=== PATIENT | male | born 1980 ===

== ENCOUNTER 2018-04-13 18:24 | Observation (INO) | payer MEDICARE ==
--- NOTE | 2018-04-13 19:10 | ED PDOC ---
HPI: Chest Pain Time Seen by Provider: 04/13/18 18:51 Chief Complaint (Nursing): Chest Pain Chief Complaint (Provider): Chest Pain History Per: Patient History/Exam Limitations: no limitations Onset/Duration Of Symptoms: Intermittent Episodes (x2 weeks) Current Symptoms Are (Timing): Intermittent Episodes Additional Complaint(s): 37 year old male presents to the ED for evaluation of intermittent sharp left sided, non-radiating left sided chest pain worse on inspiration for the past two weeks. He reports it occurred again today, prompting his visit. Denies cough, sh ortness of breath. He additionally reports hearing voices, non-commanding, but otherwise denies si/hi. PMD: Keo Richard Past Medical History Reviewed: Historical Data, Nursing Documentation, Vital Signs Vital Signs: Last Vital Signs Temp 98.1 F 04/13/18 18:34 Pulse 97 H 04/13/18 18:34 Resp 18 04/13/18 18:34 BP 159/77 H 04/13/18 18:34 Pulse Ox 99 04/13/18 18:34 - Medical History PMH: Schizophrenia Other PMH: thrombocytopenia; intestinal obstruction - Surgical History Surgical History: CABG Other surgeries: pulmonary valve replacement at - Family History Family History: States: Unknown Family Hx - Allergies Allergies/Adverse Reactions: Allergies Allergy/AdvReac Type Severity Reaction Status Date / Time Sulfa (Sulfonamide Allergy RASH Verified 04/13/18 18:33 Antibiotics) Review of Systems ROS Statement: Except As Marked, All Systems Reviewed And Found Negative Cardiovascular: Positive for: Chest Pain (sharp left sided, non-radiating, worse on inspiration) Respiratory: Negative for: Cough, Shortness of Breath Psych: Positive for: Other (auditory hallucinations). Negative for: Suicidal ideation (or homicidal ideation) Physical Exam - Reviewed Nursing Documentation Reviewed: Yes Vital Signs Reviewed: Yes - Physical Exam Appears: Positive for: No Acute Distress Head Exam: Positive for: ATRAUMATIC, NORMOCEPHALIC Skin: Positive for: Normal Color, Warm Eye Exam: Positive for: Normal appearance Neck: Positive for: Normal, Painless ROM, Supple Cardiovascular/Chest: Positive for: Murmur (3/6 systolic murmur, regular rate) Respiratory: Positive for: Normal Breath Sounds. Negative for: Respiratory Distress Gastrointestinal/Abdominal: Positive for: Normal Exam, Soft. Negative for: Tenderness Back: Positive for: Normal Inspection Extremity: Positive for: Normal ROM. Negative for: Tenderness, Pedal Edema, Calf Tenderness, Swelling Neurologic/Psych: Positive for: Alert, Oriented (x3) - Laboratory Results Result Diagrams: 04/13/18 19:30 04/13/18 19:30 - ECG O2 Sat by Pulse Oximetry: 99 (RA) Pulse Ox Interpretation: Normal Medical Decision Making Medical Decision Making: Time: 1858 Initial Impression: chest pain, probably not acute ischemic, auditory hallucinations, non commanding, in setting of known schizoaffective disorder Initial Plan: --Alcohol serum --CMP --Urine drug screen --Trop I --U-dip --CBC with differential --Chest x-ray --EKG EKG shows rbbb, but there is no prior EKG for comparison. Will be unable to clear medically for psychiatric evaluation, so will pace in OBS for serial troponins and psychiatric consult will be in TELE. Scribe Attestation: Documented by Kath Arroyo, acting as a scribe for Max Cisneros MD. Provider Scribe Attestation: All medical record entries made by the Scribe were at my direction and personally dictated by me. I have reviewed the chart and agree that the record accurately reflects my personal performance of the history, physical exam, medical decision making, and the department course for this patient. I have also personally directed, reviewed, and agree with the discharge instructions and disposition. Disposition - Clinical Impression Clinical Impression: Chest pain, Schizoaffective disorder - Patient ED Disposition Is Patient to be Admitted: Yes - Disposition Disposition Time: 20:32 Condition: FAIR Forms: [facility] (Hungarian) - Pt Status Changed To: Hospital Disposition Of: Observation - POA Present On Arrival: None
[2018-04-13 19:36] LABS: BASO % 0.6 % (0.0-2.0); HEMOGLOBIN 14.7 g/dL (12.0-18.0); MEAN CELL VOLUME 85.7 fl (80.0-94.0); MEAN CORPUSCULAR HGB CONC 32.7 g/dL (33.0-37.0); MEAN PLATELET VOLUME 9.1 fl (7.2-11.7); MONO # 0.4 K/uL (0.0-0.8); MONO % 7.8 % (0.0-10.0); NEUT # 3.3 K/uL (1.8-7.0); NEUT % 70.6 % (50.0-75.0); NRBC % 0.1 % (0.0-0.0); RBC 5.25 Mil/uL (4.40-5.90); RED CELL DISTRIBUTION WIDTH 13.5 % (11.5-14.5); WHITE BLOOD COUNT 4.7 K/uL (4.8-10.8)
[2018-04-13 19:44] LABS: ALB/GLOB RATIO 1.6 (1.0-2.1); ALBUMIN 4.7 g/dL (3.5-5.0); ALT/SGPT 51 U/L (21-72); AST/SGOT 21 U/L (17-59); BLOOD UREA NITROGEN 16 mg/dl (9-20); CALCIUM 9.3 mg/dL (8.4-10.2); GFR NON-AFRICAN AMERICAN > 60
[2018-04-13 21:22] LABS: BARBITURATES, UR NEGATIVE (NEGATIVE); BENZODIAZEPINES, UR NEGATIVE (NEGATIVE); OPIATES, UR NEGATIVE (NEGATIVE); PHENCYCLIDINE, UR NEGATIVE (NEGATIVE)
[2018-04-14 04:25] LABS: HEMOGLOBIN 13.6 g/dL (12.0-18.0); MEAN CELL VOLUME 86.5 fl (80.0-94.0); MEAN CORPUSCULAR HEMOGLOBIN 28.3 pg (27.0-31.0); MEAN CORPUSCULAR HGB CONC 32.7 g/dL (33.0-37.0); RBC 4.79 Mil/uL (4.40-5.90); RED CELL DISTRIBUTION WIDTH 13.5 % (11.5-14.5); WHITE BLOOD COUNT 4.5 K/uL (4.8-10.8)
[2018-04-14 04:42] LABS: ALB/GLOB RATIO 1.6 (1.0-2.1); ALT/SGPT 44 U/L (21-72); AST/SGOT 17 U/L (17-59); BLOOD UREA NITROGEN 14 mg/dl (9-20); CALCIUM 9.2 mg/dL (8.4-10.2); GFR NON-AFRICAN AMERICAN > 60
[2018-04-14 07:55] VITALS: RESP 20
[2018-04-14] MEDS ORDERED: BUPROPION HCL 450 MG PO SCH (09:00)
[2018-04-14] MEDS ORDERED: MOMETASONE FUROATE 0.05 MG NS SCH (09:00)
[2018-04-14] MEDS ORDERED: Pantoprazole 40 mg EC Tab PO SCH (09:00)
[2018-04-14] MEDS ORDERED: Patient's Own Med (Omeprazole [Omeprazole] 40 MG) PO SCH (09:00)
--- NOTE | 2018-04-14 09:09 | CP.PCM.CON ---
History of Present Illness - History of Present Illness History of Present Illness: Psychiatry consult note CC: Chest pain/ worsening psychosis HPI: 37 yo male w/ h/o schizoaffective disorder presents w/ chest pain, wo rsening depression/anxiety and auditory hallucinations. Patient reports that he feels helpless at times and feels that he needs inpatient psychiatric treatment for stabilization. He reports that he has been compliant with medications, but has had more frequent auditory hallucinations. No CAH/SI/HI. PMHx: Thrombocytopenia; intestinal obstruction; pulmonary valve replacement at PPHx: H/o outpatient psychiatric treatment w/ Dr. 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 -Transfer to [facility] when patient is medically stable -Wellbutrin SR 150 mg PO Daily; Trileptal 600 mg PO BID -Risperdal 4 mg PO Q12; Cogentin 1 mg PO Q12 -No 1:1 indicated at this time Past Patient History - Past Medical History & Family History Past Medical History?: Yes - Past Social History Smoking Status: Former Smoker - CARDIAC Hx Cardiac Disorders: Yes Hx Cardia Arrhythmia: Yes - PULMONARY Hx Respiratory Disorders: No - NEUROLOGICAL Hx Neurological Disorder: No - HEENT Hx HEENT Problems: No - RENAL Hx Chronic Kidney Disease: No - ENDOCRINE/METABOLIC Hx Endocrine Disorders: No - HEMATOLOGICAL/ONCOLOGICAL Hx Blood Disorders: No - INTEGUMENTARY Hx Dermatological Problems: No - MUSCULOSKELETAL/RHEUMATOLOGICAL Hx Musculoskeletal Disorders: No Hx Falls: No - GASTROINTESTINAL Hx Gastrointestinal Disorders: Yes Hx Gastroesophageal Reflux: Yes - GENITOURINARY/GYNECOLOGICAL Hx Genitourinary Disorders: No - PSYCHIATRIC Hx Psychophysiologic Disorder: Yes Hx Bipolar Disorder: Yes Hx Depression: Yes Hx Schizophrenia: Yes (Schizoaffective) Hx Substance Use: No - SURGICAL HISTORY Hx Surgeries: Yes Hx Coronary Artery Bypass Graft: Yes Hx Herniorrhaphy: Yes Other/Comment: As per patient: Pulmonary Valve Replacement at ; colostomy reversal; - ANESTHESIA Hx Anesthesia: Yes Hx Anesthesia Reactions: No Meds Allergies/Adverse Reactions: Allergies Allergy/AdvReac Type Severity Reaction Status Date / Time Sulfa (Sulfonamide Allergy RASH Verified 04/13/18 18:33 Antibiotics) - Medications Medications: Current Medications Amlodipine Besylate (Norvasc) 2.5 mg PO BID [facility] Fluticasone Propionate (Flonase) 2 spr YANET DAILY [facility] Home Med (Bupropion Hcl [Bupropion Xl]) 450 mg PO DAILY ARYAN Oxcarbazepine (Trileptal) 150 mg PO QID [facility]YAN Pantoprazole Sodium (Protonix Ec Tab) 40 mg PO DAILY ARYAN Risperidone (Risperdal Tab) 3 mg PO TID ARYAN Results - Vital Signs Recent Vital Signs: Last Vital Signs Temp 98.5 F 04/14/18 07:55 Pulse 70 04/14/18 07:55 Resp 20 04/14/18 07:55 BP 105/64 04/14/18 07:55 Pulse Ox 98 04/14/18 07:55 - Labs Result Diagrams: 04/14/18 04:10 04/14/18 04:10 Labs: Laboratory Results - last 24 hr 04/13/18 04/13/18 04/13/18 19:30 19:30 21:02 WBC 4.7 L RBC 5.25 Hgb 14.7 Hct 45.0 MCV 85.7 MCH 28.0 MCHC 32.7 L RDW 13.5 Plt Count 132 MPV 9.1 Neut % (Auto) 70.6 Lymph % (Auto) 20.0 Gregg % (Auto) 7.8 Eos % (Auto) 1.0 Baso % (Auto) 0.6 Neut # (Auto) 3.3 Lymph # (Auto) 1.0 Gregg # (Auto) 0.4 Eos # (Auto) 0.0 Baso # (Auto) 0.0 Sodium 136 Potassium 4.6 Chloride 95 L Carbon Dioxide 28 Anion Gap 18 BUN 16 Creatinine 0.9 Est GFR ( Amer) > 60 Est GFR (Non-Af Amer) > 60 Random Glucose 104 Calcium 9.3 Total Bilirubin 0.3 AST 21 ALT 51 Alkaline Phosphatase 58 Troponin I < 0.0120 Total Protein 7.6 Albumin 4.7 Globulin 2.9 Albumin/Globulin Ratio 1.6 TSH 3rd Generation Urine Opiates Screen Negative Urine Methadone Screen Negative Ur Barbiturates Screen Negative Ur Phencyclidine Scrn Negative Ur Amphetamines Screen Negative U Benzodiazepines Scrn Negative U Oth Cocaine Metabols Negative U Cannabinoids Screen Negative Alcohol, Quantitative < 10 04/14/18 04/14/18 04:10 04:10 WBC 4.5 L RBC 4.79 Hgb 13.6 Hct 41.4 MCV 86.5 MCH 28.3 MCHC 32.7 L RDW 13.5 Plt Count 136 MPV Neut % (Auto) Lymph % (Auto) Gregg % (Auto) Eos % (Auto) Baso % (Auto) Neut # (Auto) Lymph # (Auto) Gregg # (Auto) Eos # (Auto) Baso # (Auto) Sodium 136 Potassium 3.9 Chloride 98 Carbon Dioxide 29 Anion Gap 13 BUN 14 Creatinine 0.9 Est GFR ( Amer) > 60 Est GFR (Non-Af Amer) > 60 Random Glucose 97 Calcium 9.2 Total Bilirubin 0.5 AST 17 ALT 44 Alkaline Phosphatase 37 L D Troponin I < 0.0120 Total Protein 6.6 Albumin 4.0 Globulin 2.6 Albumin/Globulin Ratio 1.6 TSH 3rd Generation 2.60 Urine Opiates Screen Urine Methadone Screen Ur Barbiturates Screen Ur Phencyclidine Scrn Ur Amphetamines Screen U Benzodiazepines Scrn U Oth Cocaine Metabols U Cannabinoids Screen Alcohol, Quantitative
[2018-04-14] MEDS ORDERED: buPROPion SR 150 MG TABLET PO SCH (09:45)
--- NOTE | 2018-04-14 14:58 | RAD ---
Date of service: 04/13/2018 HISTORY: Chest pain COMPARISON: No prior. TECHNIQUE: Chest PA and lateral FINDINGS: LUNGS: No active pulmonary disease. PLEURA: No significant pleural effusion identified. No pneumothorax apparent. CARDIOVASCULAR: No aortic atherosclerotic calcification present. Cardiac size borderline enlarged. Prior median sternotomy identified with additional left heart border/perihilar radiodensity which may also be postoperative or calcific. No pulmonary vascular congestion. OSSEOUS STRUCTURES: No significant abnormalities. VISUALIZED UPPER ABDOMEN: Normal. OTHER FINDINGS: None. IMPRESSION: Borderline cardiomegaly. No pulmonary vascular congestion. No acute infiltrate bilaterally or pleural effusion. Prior median sternotomy evident.
[2018-04-14 16:04] VITALS: O2SAT 98
--- NOTE | 2018-04-14 18:43 | CARD ---
APPROVED REPORT Date of service: 04/14/2018 EKG Measurement Heart [id number] <Conclusion> Normal sinus rhythm Possible Left atrial enlargement Right bundle branch block Possible Inferior infarct, age undetermined Abnormal ECG
[2018-04-14 19:09] VITALS: BP 102/67; TEMP 99.2
--- NOTE | 2018-04-14 19:17 | CP.PCM.HP ---
History of Present Illness - History of Present Illness History of Present Illness: CC: Chest Pain History of Present Illness: A 37 year old male presents to the ED for evaluation of intermittent sharp, non- radiating left sided chest pain worse on inspiration for the past two weeks. He reports it occurred again today, prompting his visit. Denies cough, shortness of breath. He additionally reports hearing voices, non-commanding, but otherwise denies si/hi. Present on Admission - Present on Admission Any Indicators Present on Admission: No Review of Systems - Review of Systems All systems: reviewed and no additional remarkable complaints except Past Patient History - Past Medical History & Family History Past Medical History?: Yes Past Family History: Reviewed and not pertinent - Past Social History Smoking Status: Former Smoker - CARDIAC Hx Cardiac Disorders: Yes Hx Cardia Arrhythmia: Yes - PULMONARY Hx Respiratory Disorders: No - NEUROLOGICAL Hx Neurological Disorder: No - HEENT Hx HEENT Problems: No - RENAL Hx Chronic Kidney Disease: No - ENDOCRINE/METABOLIC Hx Endocrine Disorders: No - HEMATOLOGICAL/ONCOLOGICAL Hx Blood Disorders: No - INTEGUMENTARY Hx Dermatological Problems: No - MUSCULOSKELETAL/RHEUMATOLOGICAL Hx Musculoskeletal Disorders: No Hx Falls: No - GASTROINTESTINAL Hx Gastrointestinal Disorders: Yes Hx Gastroesophageal Reflux: Yes - GENITOURINARY/GYNECOLOGICAL Hx Genitourinary Disorders: No - PSYCHIATRIC Hx Psychophysiologic Disorder: Yes Hx Bipolar Disorder: Yes Hx Depression: Yes Hx Schizophrenia: Yes (Schizoaffective) Hx Substance Use: No - SURGICAL HISTORY Hx Surgeries: Yes Hx Coronary Artery Bypass Graft: Yes Hx Herniorrhaphy: Yes Other/Comment: As per patient: Pulmonary Valve Replacement at ; colostomy reversal; - ANESTHESIA Hx Anesthesia: Yes Hx Anesthesia Reactions: No Meds Allergies/Adverse Reactions: Allergies Allergy/AdvReac Type Severity Reaction Status Date / Time Sulfa (Sulfonamide Allergy RASH Verified 04/13/18 18:33 Antibiotics) Physical Exam - Constitutional Appears: Well, No Acute Distress - Head Exam Head Exam: ATRAUMATIC, NORMAL INSPECTION, NORMOCEPHALIC - Eye Exam Eye Exam: EOMI, Normal appearance, PERRL Pupil Exam: NORMAL ACCOMODATION, PERRL - ENT Exam ENT Exam: Mucous Membranes Moist, Normal Exam - Neck Exam Neck exam: Positive for: Normal Inspection - Respiratory Exam Respiratory Exam: Clear to Auscultation Bilateral, NORMAL BREATHING PATTERN - Cardiovascular Exam Cardiovascular Exam: REGULAR RHYTHM, +S1, +S2 - GI/Abdominal Exam GI & Abdominal Exam: Normal Bowel Sounds, Soft. absent: Tenderness - Extremities Exam Extremities exam: Positive for: normal inspection - Back Exam Back exam: NORMAL INSPECTION - Neurological Exam Neurological exam: Alert, CN II-XII Intact, Normal Gait, Oriented x3, Reflexes Normal - Psychiatric Exam Psychiatric exam: Normal Affect, Normal Mood - Skin Skin Exam: Dry, Intact, Normal Color, Warm Results - Vital Signs Recent Vital Signs: Last Vital Signs Temp 99.2 F 04/14/18 19:07 Pulse 123 H 04/14/18 19:07 Resp 20 04/14/18 19:07 BP 102/67 04/14/18 19:07 Pulse Ox 98 04/14/18 19:07 - Labs Result Diagrams: 04/14/18 04:10 04/14/18 04:10 Labs: Laboratory Results - last 24 hr 04/13/18 04/13/18 04/13/18 19:30 19:30 21:02 WBC 4.7 L RBC 5.25 Hgb 14.7 Hct 45.0 MCV 85.7 MCH 28.0 MCHC 32.7 L RDW 13.5 Plt Count 132 MPV 9.1 Neut % (Auto) 70.6 Lymph % (Auto) 20.0 Finney % (Auto) 7.8 Eos % (Auto) 1.0 Baso % (Auto) 0.6 Neut # (Auto) 3.3 Lymph # (Auto) 1.0 Finney # (Auto) 0.4 Eos # (Auto) 0.0 Baso # (Auto) 0.0 Sodium 136 Potassium 4.6 Chloride 95 L Carbon Dioxide 28 Anion Gap 18 BUN 16 Creatinine 0.9 Est GFR ( Amer) > 60 Est GFR (Non-Af Amer) > 60 Random Glucose 104 Calcium 9.3 Total Bilirubin 0.3 AST 21 ALT 51 Alkaline Phosphatase 58 Troponin I < 0.0120 Total Protein 7.6 Albumin 4.7 Globulin 2.9 Albumin/Globulin Ratio 1.6 TSH 3rd Generation Urine Opiates Screen Negative Urine Methadone Screen Negative Ur Barbiturates Screen Negative Ur Phencyclidine Scrn Negative Ur Amphetamines Screen Negative U Benzodiazepines Scrn Negative U Oth Cocaine Metabols Negative U Cannabinoids Screen Negative Alcohol, Quantitative < 10 RPR 04/14/18 04/14/18 04/14/18 04:10 04:10 04:10 WBC 4.5 L RBC 4.79 Hgb 13.6 Hct 41.4 MCV 86.5 MCH 28.3 MCHC 32.7 L RDW 13.5 Plt Count 136 MPV Neut % (Auto) Lymph % (Auto) Finney % (Auto) Eos % (Auto) Baso % (Auto) Neut # (Auto) Lymph # (Auto) Finney # (Auto) Eos # (Auto) Baso # (Auto) Sodium 136 Potassium 3.9 Chloride 98 Carbon Dioxide 29 Anion Gap 13 BUN 14 Creatinine 0.9 Est GFR ( Amer) > 60 Est GFR (Non-Af Amer) > 60 Random Glucose 97 Calcium 9.2 Total Bilirubin 0.5 AST 17 ALT 44 Alkaline Phosphatase 37 L D Troponin I < 0.0120 Total Protein 6.6 Albumin 4.0 Globulin 2.6 Albumin/Globulin Ratio 1.6 TSH 3rd Generation 2.60 Urine Opiates Screen Urine Methadone Screen Ur Barbiturates Screen Ur Phencyclidine Scrn Ur Amphetamines Screen U Benzodiazepines Scrn U Oth Cocaine Metabols U Cannabinoids Screen Alcohol, Quantitative RPR Nonreactive 04/14/18 11:29 WBC RBC Hgb Hct MCV MCH MCHC RDW Plt Count MPV Neut % (Auto) Lymph % (Auto) Finney % (Auto) Eos % (Auto) Baso % (Auto) Neut # (Auto) Lymph # (Auto) Finney # (Auto) Eos # (Auto) Baso # (Auto) Sodium Potassium Chloride Carbon Dioxide Anion Gap BUN Creatinine Est GFR ( Amer) Est GFR (Non-Af Amer) Random Glucose Calcium Total Bilirubin AST ALT Alkaline Phosphatase Troponin I < 0.0120 Total Protein Albumin Globulin Albumin/Globulin Ratio TSH 3rd Generation Urine Opiates Screen Urine Methadone Screen Ur Barbiturates Screen Ur Phencyclidine Scrn Ur Amphetamines Screen U Benzodiazepines Scrn U Oth Cocaine Metabols U Cannabinoids Screen Alcohol, Quantitative RPR - Imaging and Cardiology Chest x-ray Status: Report reviewed by me Additional comment: No acute finding. +sutures in the past. Assessment & Plan (1) Atypical chest pain Status: Resolved (2) Schizoaffective disorder Status: Acute - Assessment and Plan (Free Text) Plan: Serial Tzroponin andEKG Monitor 24hrs for chest pain
[2018-04-14 22:31] VITALS: PULSE 79
--- NOTE | 2018-04-15 07:28 | CP.PCM.DIS ---
Provider - Provider Date of Admission: 04/13/18 20:30 Attending physician: Nicholas Ariza MD Consults: 04/13/18 20:33 Physician Consult Stat Comment: Consulting Provider: Karen Patino Consulting Physician: Karen Patino Reason for Consult: Schizoaffective disorder Time Spent in preparation of Discharge (in minutes): 20 Diagnosis - Discharge Diagnosis (1) Chest pain Status: Acute (2) Schizoaffective disorder Status: Acute Hospital Course - Lab Results Lab Results: Most Recent Lab Values WBC 4.5 K/uL (4.8-10.8) L 04/14/18 04:10 RBC 4.79 Mil/uL (4.40-5.90) 04/14/18 04:10 Hgb 13.6 g/dL (12.0-18.0) 04/14/18 04:10 Hct 41.4 % (35.0-51.0) 04/14/18 04:10 MCV 86.5 fl (80.0-94.0) 04/14/18 04:10 MCH 28.3 pg (27.0-31.0) 04/14/18 04:10 MCHC 32.7 g/dL (33.0-37.0) L 04/14/18 04:10 RDW 13.5 % (11.5-14.5) 04/14/18 04:10 Plt Count 136 K/uL (130-400) 04/14/18 04:10 MPV 9.1 fl (7.2-11.7) 04/13/18 19:30 Neut % (Auto) 70.6 % (50.0-75.0) 04/13/18 19:30 Lymph % (Auto) 20.0 % (20.0-40.0) 04/13/18 19:30 Wayne % (Auto) 7.8 % (0.0-10.0) 04/13/18 19:30 Eos % (Auto) 1.0 % (0.0-4.0) 04/13/18 19:30 Baso % (Auto) 0.6 % (0.0-2.0) 04/13/18 19:30 Neut # (Auto) 3.3 K/uL (1.8-7.0) 04/13/18 19:30 Lymph # (Auto) 1.0 K/uL (1.0-4.3) 04/13/18 19:30 Wayne # (Auto) 0.4 K/uL (0.0-0.8) 04/13/18 19:30 Eos # (Auto) 0.0 K/uL (0.0-0.7) 04/13/18 19:30 Baso # (Auto) 0.0 K/uL (0.0-0.2) 04/13/18 19:30 Sodium 136 mmol/l (132-148) 04/14/18 04:10 Potassium 3.9 MMOL/L (3.6-5.0) 04/14/18 04:10 Chloride 98 mmol/L (98-107) 04/14/18 04:10 Carbon Dioxide 29 mmol/L (22-30) 04/14/18 04:10 Anion Gap 13 (10-20) 04/14/18 04:10 BUN 14 mg/dl (9-20) 04/14/18 04:10 Creatinine 0.9 mg/dl (0.8-1.5) 04/14/18 04:10 Est GFR ( Amer) > 60 04/14/18 04:10 Est GFR (Non-Af Amer) > 60 04/14/18 04:10 Random Glucose 97 mg/dL (75-110) 04/14/18 04:10 Calcium 9.2 mg/dL (8.4-10.2) 04/14/18 04:10 Total Bilirubin 0.5 mg/dl (0.2-1.3) 04/14/18 04:10 AST 17 U/L (17-59) 04/14/18 04:10 ALT 44 U/L (21-72) 04/14/18 04:10 Alkaline Phosphatase 37 U/L (38-126) L D 04/14/18 04:10 Troponin I < 0.0120 ng/mL (0.00-0.120) 04/14/18 11:29 Total Protein 6.6 G/DL (6.3-8.2) 04/14/18 04:10 Albumin 4.0 g/dL (3.5-5.0) 04/14/18 04:10 Globulin 2.6 gm/dL (2.2-3.9) 04/14/18 04:10 Albumin/Globulin Ratio 1.6 (1.0-2.1) 04/14/18 04:10 TSH 3rd Generation 2.60 mIU/ML (0.46-4.68) 04/14/18 04:10 Urine Opiates Screen Negative (NEGATIVE) 04/13/18 21:02 Urine Methadone Screen Negative (NEGATIVE) 04/13/18 21:02 Ur Barbiturates Screen Negative (NEGATIVE) 04/13/18 21:02 Ur Phencyclidine Scrn Negative (NEGATIVE) 04/13/18 21:02 Ur Amphetamines Screen Negative (NEGATIVE) 04/13/18 21:02 U Benzodiazepines Scrn Negative (NEGATIVE) 04/13/18 21:02 U Oth Cocaine Metabols Negative (NEGATIVE) 04/13/18 21:02 U Cannabinoids Screen Negative (NEGATIVE) 04/13/18 21:02 Alcohol, Quantitative < 10 mg/dl (0-10) 04/13/18 19:30 RPR Nonreactive (NONREACTIVE) 04/14/18 04:10 - Hospital Course Hospital Course: Observed in telemetry for chest pain. ACS Ruled out and Medically Cleared fo Psych admission. Patient has active Psychotic Behaviour. Discharge Exam - Head Exam Head Exam: ATRAUMATIC, NORMOCEPHALIC Discharge Plan - Follow Up Plan Condition: FAIR Disposition: DISCHARGE TO PSYCH HOSPITAL Instructions: Chest Pain
== END 2018-04-14 23:07 ==
LOC: H.ER 18:24 → H.ERHOLD 20:30 → H.TEL 23:20
PROVIDERS: ADMIT Internal Medicine; ATTEND Internal Medicine
DX: R07.89 Other chest pain (principal); F25.9 Schizoaffective disorder, unspecified; Z88.2 Allergy status to sulfonamides; Z95.1 Presence of aortocoronary bypass graft; I45.10 Unspecified right bundle-branch block; Z87.891 Personal history of nicotine dependence; K21.9 Gastro-esophageal reflux disease without esophagitis
CPT/HCPCS: 36415; 71046; 80053; 84443; 84484; 85025; 85027; 86592; 93005; 99285; G0378; G0480

== ENCOUNTER 2018-04-14 21:11 | Inpatient (IN) | payer MEDICARE ==
[2018-04-14 23:32] VITALS: BMI 20.5
[2018-04-14] MEDS ORDERED: DiphenhydrAMINE 50 mg/ml Inj IM PRN (23:32)
[2018-04-14] MEDS ORDERED: Magnesium Hydroxide Susp 30 ml UD PO PRN (23:32)
[2018-04-14] MEDS ORDERED: Alum-Mag Hydrox-Simethicone Susp (30 mL) PO PRN (23:32)
--- NOTE | 2018-04-15 00:03 | PCM.BM ---
<Freya Roth - Last Filed: 04/15/18 00:00> Treatment Plan Problems - Problems identified on initial assessmt Auditory Hallucinations Date Initiated: 04/15/18 Time Initiated: 00:01 Assessment reference: NA Status: Active Ineffective Coping Date Initiated: 04/15/18 Time Initiated: 00:02 Assessment reference: NA Status: Active Treatment assets and liabiliti Patient Assests: self-reliant, ADL independent, good support system Patient Liabilities: financial problems, substance abuse - Milieu Protocol Maintain good personal hygiene: every shift Encourage regular showers, every shift Remind patient to perform daily oral care, every shift Assist patient to perform ADL's Conduct patient checks and document Observation sheet: Q15 minutes Maintain personal safety: every shift Educate patient to report safety concerns to staff, every shift Monitor environment for contraband/sharps Medication safety: Monitor for expected outcome, potential side effects: every shift, Assess barriers to learning: every shift, Assess readiness for medication education: every shift <Trice Ramirez - Last Filed: 04/16/18 14:36> Treatment assets and liabiliti Patient Assests: adapts well, cooperative, insightful (Pt. responds well to reality-testing and is able to identify paranoia/ideas of reference as sxs of illness. ), motivated (Pt. expresses motivation for tx), resourceful, self- reliant, ADL independent, physically healthy, good support system, good past tx response (Pt. reports maintaining sobriety x10 years (07/18/07). Pt. denies inpt admissions since 2005.), strong sara (Pt. reports attended [place], volunteering with his [employer], maintaining sobriety through 12 step program) Patient Liabilities: dietary restrictions, medical problems ( Pt. denies extensive medical hx (pulmonary valve replacement/perforated anus- infant, i ntentional obstruction-young adulthood, colostomy). Please see H&P.) Family Contact Family involvement: Family/SO is involved Family contact: Patient agrees to contact, Family has been contacted by patient, Telephone contact initiated by staff Family contact name: Frida(mother)([phone]) Family contacted how many times per week?: 2 - Goals for Treatment Patient goals for treatment: Patient to continue stabilization on 3NP through medication management and group/supportive therapy to address sxs of depression and eliminate psychosis as exhibited by AH, paranoia, ideas of reference. Patient to be encouraged to attend groups regularly to promote self-awareness, sobriety, and improve insight, compliance, coping skills and self-esteem. Patient to be provided with referral for appropriate level of aftercare to reduce risk of future hospitalizations and ensure safety in the community. Pt. identified managing medications appropriately to "think better" and "feel happier". Discharge/Continuing Care - Education Needs Education Needs: Patient Medication, Patient Diagnosis/Disease Process, Patient Coping Skills, Patient Community resources, Patient Aftercare Safety Plan - Discharge Discharge Criteria: Tolerates medication w/o severe side effects, Free of Suicidal thoughts, Free of paranoid thoughts, Free of agitation, Normal sleep pattern, Ability to care for self, Reduction of target symptoms (ideas of reference, racing thoughts) Discharge to:: Home, With Family - Treatment Team Participation Patient/Family/SO Statement: 04/16/18 14:43 Pt. attended tx team on 04/15 to discuss precursors to hospitalization, progress on 3NP and tx goals. Pt. reported recent worsening of depression as exhibited by racing thoughts, paranoia, ideas of reference and derogatory AH. Pt. explained AH as worsening at night. Pt. expressed motivation for tx and exhibited fair i nsight into illness. Thoughts are tangential, disorganized and circumstantial. Thought process included ideas of reference of paranoia. Pt. responded well to reality-testing and is able to identify paranoia/ideas of reference as sxs of illness. Speech: pressured. Pt. denied current SI/HI and is able to contact for safety on 3NP. Pt. reported having been on the same regime for 10 years. Possible benefits of changing pts medications discussed. Pt. agreeable. Pt. reported wanting to improve sleep and "slow down" thoughts in order to improve focus and return to daily routine. Discussed with Family/SO: No Was Patient/Family/SO present at Treatment Team Meeting: Yes <Nicko Robledo - Last Filed: 04/17/18 13:23> - Diagnosis (1) Psychosis Status: Acute Interventions: pharmacotherapy 04/17/18 13:23
[2018-04-15 07:48] LABS: HDL CHOLESTEROL 64 MG/DL (30-70)
[2018-04-15 07:59] LABS: LDL CHOLESTEROL 70 mg/dL (0-129)
[2018-04-15] MEDS: buPROPion SR 150 MG TABLET PO SCH (09:14)
--- NOTE | 2018-04-15 12:51 | PCM.PSYCH ---
Initial Psychiatric Evaluation - Initial Psychiatric Evaluation Type of Admission: Voluntary Legal Status: Capacity Chief Complaint (in patient's own words): I am very frustrated and overwhelmed by the voices History of Present Illness and Precipitating Events: pt is a 37ys old male with previous psychiatric diagnosis of schizoaffective disorder and polysubstance use in full sustained remission presented to ER due to increased depression with passive suicidal ideation as the patient for past three weeks has been experiencing derogatory auditory hallucinations putting him down and telling him he is worthless, pt also has been experiencing mood swings, at times increasingly depressed and this alternating with episodes of irritability and anger , reported poor sleep and poor appetite with significant weight loss on evaluation patient presenting with ideas of reference reporting that certain colors and certain numbers has been hinting in his mind to certain thoughts pt also reported feeling tormented by the auditory hallucinations mainly at night, denied command hallucinations, denied active thoughts of self harm on the unit Current Medications: Active Medications Generic Name Dose Route Start Last Admin Trade Name Freq PRN Reason Stop Dose Admin Acetaminophen 650 mg 04/14/18 23:32 Tylenol 325mg Tab PO Q4 PRN Pain, moderate (4-7) Al Hydrox/Mg Hydrox/Simethicone 30 ml 04/14/18 23:32 Maalox Plus 30 Ml PO Q4 PRN Dyspepsia Benztropine Mesylate 1 mg 04/15/18 09:00 04/15/18 09:14 Cogentin PO 1 mg Q12 ARYAN Administration Bupropion HCl 150 mg 04/15/18 09:00 04/15/18 09:14 Wellbutrin Sr 150 Mg PO 150 mg DAILY ARYAN Administration Diphenhydramine HCl 50 mg 04/14/18 23:32 Benadryl IM Q6 PRN Extrapyramidal S/S Unable PO Diphenhydramine HCl 50 mg 04/14/18 23:32 Benadryl PO Q6 PRN Extrapyramidal Symptoms Diphenhydramine HCl 50 mg 04/14/18 23:39 04/15/18 00:50 Benadryl PO 50 mg HS PRN Administration Sleep Haloperidol 5 mg 04/14/18 23:32 Haldol PO Q4 PRN Agitation Haloperidol Lactate 5 mg 04/14/18 23:32 Haldol IM Q4 PRN Agitation, Unable to Take PO Lorazepam 2 mg 04/14/18 23:32 Ativan IM Q6 PRN Anxiety/Agitation,Unable PO Lorazepam 1 mg 04/14/18 23:32 Ativan PO Q6 PRN Anxiety/Agitation Magnesium Hydroxide 30 ml 04/14/18 23:32 Milk Of Magnesia PO HS PRN Constipation Oxcarbazepine 600 mg 04/15/18 09:00 04/15/18 09:15 Trileptal PO 600 mg BID ARYAN Administration Perphenazine 2 mg 04/16/18 09:00 Perphenazine PO DAILY ARYAN Risperidone 6 mg 04/15/18 22:00 Risperdal Tab PO HS ARYAN Trazodone HCl 50 mg 04/15/18 22:00 Desyrel PO HS ARYAN Past Psychiatric History - Past Psychiatric History Explanation of prior treatment: one hospitalization in 2005 History of ETOH/Drug Use: history of pcp , alcohol and cannabis use in full sustained remission Pertinent Medical Hx (Current Medical&Sleep Prob, Allergies): Allergies Allergy/AdvReac Type Severity Reaction Status Date / Time Sulfa (Sulfonamide Allergy RASH Verified 04/13/18 18:33 Antibiotics) Bupropion HCl [Bupropion Xl] 450 mg PO DAILY 04/13/18 Mometasone Furoate [Nasonex] 0.05 mg NS DAILY 04/13/18 OXcarbazepine [Trileptal] 150 mg PO QID 04/13/18 Omeprazole 40 mg PO DAILY 04/13/18 Risperidone [Risperdal] 3 mg PO TID 04/13/18 amLODIPine [Norvasc] 2.5 mg PO BID 04/13/18 Mental Status Examination - Personal Presentation Personal Presentation: Looks stated age Additional comments: underweight - Affect Affect: Constricted, Depressed - Motor Activity Motor Activity: Psychomotor Retardation - Reliability in Providing Information Reliability in Providing Information: Fair - Speech Speech: Relevant Additional comments: slow and soft - Mood Mood: Depressed, Anxious - Formal Thought Process Formal Thought Process: Circumstantial Additional comments: concrete - Hallucinations/Delusions Hallucinations: Auditory - Cognitive Functions Orientation: Person, Place Sensorium: Alert Attention/Concentration: Attentive Abstract Thinking: [place] - Risk Risk: Suicidal, Diminished functioning - Strength & Assets Inventory Strength & Assets Inventory: Family support - Limitations Additional comments: partial compliance DSM 5 DX - DSM 5 DSM 5 Diagnosis: schizoaffective disorder bipolar type polysubstance use in full sustained remission - Recommended/Plan of Treatment Treatment Recommendations and Plan of Treatment: start perphenazine 2mg daily and risperidone 6mg qhs with plan to downtitrate risperidone and increase perphenazine gradually wellbtrin 150mg daily trileptal 600mg bid trazodone 50mg qhs monitor pt for psychopharmacological effects and side effect profile r
[2018-04-15] MEDS: Pantoprazole 40 mg EC Tab PO SCH (15:29)
--- NOTE | 2018-04-16 01:40 | CP.PCM.HP ---
History of Present Illness - History of Present Illness History of Present Illness: CC: Psychotic Behaviour History of Presentation: A 37 year old male was from Telemetry unit for Schizophrenia with hearing voices, non-commanding, but otherwise denies Homicidal or suicidal ideation. Chest pain resolved. Present on Admission - Present on Admission Any Indicators Present on Admission: No Review of Systems - Review of Systems All systems: reviewed and no additional remarkable complaints except Review of Systems: as per HPI Past Patient History - Past Medical History & Family History Past Medical History?: Yes - Past Social History Smoking Status: Former Smoker Alcohol: None Drugs: Denies - CARDIAC Hx Cardiac Disorders: Yes Hx Cardia Arrhythmia: Yes - PULMONARY Hx Respiratory Disorders: Yes - NEUROLOGICAL Hx Neurological Disorder: No - HEENT Hx HEENT Problems: No - RENAL Hx Chronic Kidney Disease: No - ENDOCRINE/METABOLIC Hx Endocrine Disorders: No - HEMATOLOGICAL/ONCOLOGICAL Hx Blood Disorders: No - INTEGUMENTARY Hx Dermatological Problems: No - MUSCULOSKELETAL/RHEUMATOLOGICAL Hx Musculoskeletal Disorders: No Hx Falls: No - GASTROINTESTINAL Hx Gastrointestinal Disorders: Yes Hx Gastroesophageal Reflux: Yes - GENITOURINARY/GYNECOLOGICAL Hx Genitourinary Disorders: No - PSYCHIATRIC Hx Bipolar Disorder: Yes Hx Depression: Yes Hx Schizophrenia: Yes Hx Substance Use: Yes (MJ last used July 01, 2007) - SURGICAL HISTORY Hx Surgeries: Yes Hx Coronary Artery Bypass Graft: Yes Hx Herniorrhaphy: Yes (Umbilical Hernia) Hx Pulmonary Surgery: Yes (Pulmonary Valve Replacement) Other/Comment: As per patient: Pulmonary Valve Replacement at ; colostomy reversal d/t perforated anus - ANESTHESIA Hx Anesthesia: Yes Hx Anesthesia Reactions: No Hx Malignant Hyperthermia: No Has any member of the family had a problem w/ anesthesia?: No Meds Allergies/Adverse Reactions: Allergies Allergy/AdvReac Type Severity Reaction Status Date / Time Sulfa (Sulfonamide Allergy RASH Verified 04/13/18 18:33 Antibiotics) Physical Exam - Constitutional Appears: Well, No Acute Distress - Head Exam Head Exam: ATRAUMATIC, NORMAL INSPECTION, NORMOCEPHALIC - Eye Exam Eye Exam: EOMI, Normal appearance, PERRL Pupil Exam: NORMAL ACCOMODATION, PERRL - ENT Exam ENT Exam: Mucous Membranes Moist, Normal Exam - Neck Exam Neck exam: Positive for: Normal Inspection - Respiratory Exam Respiratory Exam: Clear to Auscultation Bilateral, NORMAL BREATHING PATTERN - Cardiovascular Exam Cardiovascular Exam: Diastolic murmur, REGULAR RHYTHM, +S1, +S2, Systolic Murmur - GI/Abdominal Exam GI & Abdominal Exam: Normal Bowel Sounds, Soft. absent: Tenderness - Extremities Exam Extremities exam: Positive for: full ROM, normal capillary refill, normal inspection - Back Exam Back exam: FULL ROM, NORMAL INSPECTION - Neurological Exam Neurological exam: Alert, CN II-XII Intact, Normal Gait, Oriented x3, Reflexes Normal - Psychiatric Exam Psychiatric exam: Normal Affect, Normal Mood - Skin Skin Exam: Dry, Intact, Normal Color, Warm Results - Vital Signs Recent Vital Signs: Last Vital Signs Temp 98.0 F 04/15/18 17:00 Pulse 78 04/15/18 17:22 Resp 18 04/15/18 17:00 BP 124/71 04/15/18 17:22 Pulse Ox - Labs Labs: Laboratory Results - last 24 hr 04/15/18 04/15/18 06:35 06:35 Hemoglobin A1c 5.5 Triglycerides 57 Cholesterol 139 LDL Cholesterol Direct 70 HDL Cholesterol 64 Assessment & Plan (1) H/O pulmonic valve repair Status: Acute Priority: Low (2) Schizoaffective disorder Status: Acute Priority: Low (3) Atypical chest pain Status: Resolved Priority: Low - Assessment and Plan (Free Text) Plan: PSych Treatment as per Psychiatrist recommendation TSH/RPR/Vit. B12
[2018-04-16] MEDS: Pantoprazole 40 mg EC Tab PO SCH (09:30)
[2018-04-16] MEDS: buPROPion SR 150 MG TABLET PO SCH (09:30)
--- NOTE | 2018-04-16 13:59 | PCM.PYCHPN ---
Psychiatric Progress Note - Psychiatric Progress Note Patient seen today, length of contact: pt evaluated discussed with team chart reviewed Patient Chief Complaint: I still feel angry and irritable Problems Identified/Issues Discussed: pt evaluated in day room, reported mood still angry and irritable, affect anxious , pt continues to experience auditory hallucinations putting him down and making him feel worthless, reported continues to have ideas of reference in art therapy feeling certain colors are reference to gang activity, reported poor concentration and poor motivation patient has insight into illness , discussed increasing dose of perphenazine while down titrating down reisperidone, no current reported side effects denied command hallucinations, denied suicidal or homicidal ideation Medical Problems: one hospitalization in 2005 DSM 5 Symptoms Update: schizoaffective disorder bipolar Medication Change: Yes (increase perphenazine ) Medical Record Reviewed: Yes Mental Status Examination - Cognitive Function Orientation: Person, Place Attention: WNL Concentration: Poor Association: WNL Decription of patient's judgement and insights: fair insight , and judgment - Mood Mood: Depressed, Anxious - Affect Affect: Constricted, Depressed - Speech Speech: Soft - Formal Thought Process Formal Thought Process: Hallucinations, Circumstantial - Suicidal Ideation Suicidal Ideation: No - Homicidal Ideation Homicidal Ideation: No Goal/Treatment Plan - Goal/Treatment Plan Need for Continued Stay: Severe depression anxiety, Discharge may exacerbated symptoms Progress Toward Problem(s) and Goals/Treatment Plan: increase perphenazine 2mg bid and decrease risperidone to 4mg qhs wellbtrin 150mg daily trileptal 600mg bid trazodone 50mg qhs monitor pt for psychopharmacological effects and side effect profile r
--- NOTE | 2018-04-17 08:13 | CP.PCM.PN ---
Subjective - Date & Time of Evaluation Date of Evaluation: 04/16/18 Time of Evaluation: 18:25 Objective - Vital Signs/Intake and Output Vital Signs (last 24 hours): Temp Pulse Resp BP Pulse Ox 98.0 F 82 18 106/64 04/16/18 17:00 04/16/18 17:43 04/16/18 17:00 04/16/18 17:43 - Medications Medications: Current Medications Acetaminophen (Tylenol 325mg Tab) 650 mg PO Q4 PRN PRN Reason: Pain, moderate (4-7) Al Hydrox/Mg Hydrox/Simethicone (Maalox Plus 30 Ml) 30 ml PO Q4 PRN PRN Reason: Dyspepsia Amlodipine Besylate (Norvasc) 2.[address] [facility] Last Admin: 04/16/18 17:43 Dose: Not Given Benztropine Mesylate (Cogentin) [address] [facility] Last Admin: 04/16/18 21:02 Dose: 1 mg Bupropion HCl (Wellbutrin Sr 150 Mg) [address] [facility] Last Admin: 04/16/18 09:30 Dose: 150 mg Diphenhydramine HCl (Benadryl) 50 mg IM Q6 PRN PRN Reason: Extrapyramidal S/S Unable PO Diphenhydramine HCl (Benadryl) 50 mg PO Q6 PRN PRN Reason: Extrapyramidal Symptoms Diphenhydramine HCl (Benadryl) 50 mg PO HS PRN PRN Reason: Sleep Last Admin: 04/16/18 21:04 Dose: 50 mg Haloperidol (Haldol) 5 mg PO Q4 PRN PRN Reason: Agitation Haloperidol Lactate (Haldol) 5 mg IM Q4 PRN PRN Reason: Agitation, Unable to Take PO Lorazepam (Ativan) 2 mg IM Q6 PRN PRN Reason: Anxiety/Agitation,Unable PO Lorazepam (Ativan) 1 mg PO Q6 PRN PRN Reason: Anxiety/Agitation Magnesium Hydroxide (Milk Of Magnesia) 30 ml PO HS PRN PRN Reason: Constipation Oxcarbazepine (Trileptal) [address] [facility] Last Admin: 04/16/18 17:40 Dose: 600 mg Pantoprazole Sodium (Protonix Ec Tab) [address] [facility] Last Admin: 04/16/18 09:30 Dose: 40 mg Perphenazine (Perphenazine) [address] [facility] Last Admin: 04/16/18 17:41 Dose: 2 mg Risperidone (Risperdal Tab) [address] [facility] Last Admin: 04/16/18 21:02 Dose: 4 mg Trazodone HCl (Desyrel) [address] [facility] Last Admin: 04/16/18 21:02 Dose: 50 mg
[2018-04-17] MEDS: buPROPion SR 150 MG TABLET PO SCH (09:40)
[2018-04-17] MEDS: Pantoprazole 40 mg EC Tab PO SCH (09:40)
--- NOTE | 2018-04-17 13:31 | PCM.PYCHPN ---
Psychiatric Progress Note - Psychiatric Progress Note Patient seen today, length of contact: pt evaluated discussed with team chart reviewed Patient Chief Complaint: The voices are ten percent less and they are less frustrating Problems Identified/Issues Discussed: pt evaluated in day room, reported decrease in the auditory hallucinations sated they not as frustrating and not the whole day as they used to be , patient presenting with repetitive thoughts and rituals with possible obsessive and compulsive nature, continues to report labile mood particularly in the afternoon with episodes of irritability alternating with episodes of increase happiness, discussed increasing dose of perphenazine while gradually decreasing risperidone also discussed lowering wellbutrin and starting luvox, no reported side effects of medications, pt attending groups denied command hallucinations, denied suicidal or homicidal ideation Medical Problems: one hospitalization in 2005 DSM 5 Symptoms Update: schizoaffective disorder bipolar Medication Change: Yes (increase perphenazine ) Medical Record Reviewed: Yes Mental Status Examination - Cognitive Function Orientation: Person, Place Attention: WNL Concentration: Poor Association: WNL Decription of patient's judgement and insights: fair insight , and judgment - Mood Mood: Depressed, Anxious - Affect Affect: Constricted, Depressed - Speech Speech: Soft - Formal Thought Process Formal Thought Process: Hallucinations, Circumstantial - Suicidal Ideation Suicidal Ideation: No - Homicidal Ideation Homicidal Ideation: No Goal/Treatment Plan - Goal/Treatment Plan Need for Continued Stay: Severe depression anxiety, Discharge may exacerbated symptoms Progress Toward Problem(s) and Goals/Treatment Plan: increase perphenazine 2mg tid and decrease risperidone to 2mg qhs decrease wellbtrin 75 mg daily, start luvox 50mg qhs trileptal 600mg bid trazodone 50mg qhs monitor pt for psychopharmacological effects and side effect profile r
--- NOTE | 2018-04-17 22:19 | CP.PCM.PN ---
Subjective - Date & Time of Evaluation Date of Evaluation: 04/17/18 Time of Evaluation: 16:00 Objective - Vital Signs/Intake and Output Vital Signs (last 24 hours): Temp Pulse Resp BP Pulse Ox 97.8 F 78 18 118/71 04/17/18 17:00 04/17/18 17:48 04/17/18 17:00 04/17/18 17:48 - Medications Medications: Current Medications Acetaminophen (Tylenol 325mg Tab) 650 mg PO Q4 PRN PRN Reason: Pain, moderate (4-7) Al Hydrox/Mg Hydrox/Simethicone (Maalox Plus 30 Ml) 30 ml PO Q4 PRN PRN Reason: Dyspepsia Amlodipine Besylate (Norvasc) 2.5 mg PO BID [facility] Last Admin: 04/17/18 17:48 Dose: 2.5 mg Benztropine Mesylate (Cogentin) 0.5 mg PO TID [facility] Last Admin: 04/17/18 17:48 Dose: 0.5 mg Bupropion HCl (Wellbutrin) 75 mg PO DAILY [facility] Diphenhydramine HCl (Benadryl) 50 mg IM Q6 PRN PRN Reason: Extrapyramidal S/S Unable PO Diphenhydramine HCl (Benadryl) 50 mg PO Q6 PRN PRN Reason: Extrapyramidal Symptoms Diphenhydramine HCl (Benadryl) 50 mg PO HS PRN PRN Reason: Sleep Last Admin: 04/16/18 21:04 Dose: 50 mg Fluvoxamine Maleate (Luvox) 50 mg PO HS [facility] Last Admin: 04/17/18 21:04 Dose: 50 mg Haloperidol (Haldol) 5 mg PO Q4 PRN PRN Reason: Agitation Haloperidol Lactate (Haldol) 5 mg IM Q4 PRN PRN Reason: Agitation, Unable to Take PO Lorazepam (Ativan) 2 mg IM Q6 PRN PRN Reason: Anxiety/Agitation,Unable PO Lorazepam (Ativan) 1 mg PO Q6 PRN PRN Reason: Anxiety/Agitation Magnesium Hydroxide (Milk Of Magnesia) 30 ml PO HS PRN PRN Reason: Constipation Oxcarbazepine (Trileptal) 600 mg PO BID [facility] Last Admin: 04/17/18 17:49 Dose: 600 mg Pantoprazole Sodium (Protonix Ec Tab) 40 mg PO DAILY [facility] Last Admin: 04/17/18 09:40 Dose: 40 mg Perphenazine (Perphenazine) 2 mg PO TID [facility] Last Admin: 04/17/18 17:48 Dose: 2 mg Trazodone HCl (Desyrel) 50 mg PO HS [facility] Last Admin: 04/17/18 21:04 Dose: 50 mg
[2018-04-18] MEDS: Pantoprazole 40 mg EC Tab PO SCH (09:08)
--- NOTE | 2018-04-18 11:40 | PCM.PYCHPN ---
Psychiatric Progress Note - Psychiatric Progress Note Patient seen today, length of contact: pt evaluated discussed with team chart reviewed Patient Chief Complaint: The voices do not bother me as before Problems Identified/Issues Discussed: pt evaluated in day room, less anxious and less irritable, reported partial clearing of the auditory hallucinations , continues to have ideas of reference and obsessive thoughts about colors and numbers, pt denied side effects , discussed increasing dose of luvox ptdenied command hallucinations, denied suicidal or homicidal ideation Medical Problems: one hospitalization in 2005 Medication Change: Yes (increase luvox ) Medical Record Reviewed: Yes Mental Status Examination - Cognitive Function Orientation: Person, Place Attention: WNL Concentration: Poor Association: WNL Decription of patient's judgement and insights: fair insight , and judgment - Mood Mood: Depressed, Anxious - Affect Affect: Constricted, Depressed - Speech Speech: Soft - Formal Thought Process Formal Thought Process: Hallucinations, Circumstantial - Suicidal Ideation Suicidal Ideation: No - Homicidal Ideation Homicidal Ideation: No Goal/Treatment Plan - Goal/Treatment Plan Need for Continued Stay: Severe depression anxiety, Discharge may exacerbated symptoms Progress Toward Problem(s) and Goals/Treatment Plan: perphenazine 2mg tid and discontinue risperidone to 2mg qhs discontinue wellbtrin , increase luvox 100mg qhs trileptal 600mg bid trazodone 50mg qhs monitor pt for psychopharmacological effects and side effect profile r
--- NOTE | 2018-04-18 23:40 | CP.PCM.PN ---
Subjective - Date & Time of Evaluation Date of Evaluation: 04/18/18 Time of Evaluation: 18:10 Objective - Vital Signs/Intake and Output Vital Signs (last 24 hours): Temp Pulse Resp BP Pulse Ox 97.1 F L 70 18 103/65 04/18/18 18:18 04/18/18 18:18 04/18/18 18:18 04/18/18 18:18 - Medications Medications: Current Medications Acetaminophen (Tylenol 325mg Tab) 650 mg PO Q4 PRN PRN Reason: Pain, moderate (4-7) Al Hydrox/Mg Hydrox/Simethicone (Maalox Plus 30 Ml) 30 ml PO Q4 PRN PRN Reason: Dyspepsia Amlodipine Besylate (Norvasc) 2.5 mg PO BID [facility] Last Admin: 04/18/18 17:52 Dose: 2.5 mg Benztropine Mesylate (Cogentin) 0.5 mg PO TID [facility] Last Admin: 04/18/18 17:51 Dose: 0.5 mg Diphenhydramine HCl (Benadryl) 50 mg IM Q6 PRN PRN Reason: Extrapyramidal S/S Unable PO Diphenhydramine HCl (Benadryl) 50 mg PO Q6 PRN PRN Reason: Extrapyramidal Symptoms Diphenhydramine HCl (Benadryl) 50 mg PO HS PRN PRN Reason: Sleep Last Admin: 04/16/18 21:04 Dose: 50 mg Fluvoxamine Maleate (Luvox) 100 mg PO HS [facility] Last Admin: 04/18/18 21:13 Dose: 100 mg Haloperidol (Haldol) 5 mg PO Q4 PRN PRN Reason: Agitation Haloperidol Lactate (Haldol) 5 mg IM Q4 PRN PRN Reason: Agitation, Unable to Take PO Lorazepam (Ativan) 2 mg IM Q6 PRN PRN Reason: Anxiety/Agitation,Unable PO Lorazepam (Ativan) 1 mg PO Q6 PRN PRN Reason: Anxiety/Agitation Magnesium Hydroxide (Milk Of Magnesia) 30 ml PO HS PRN PRN Reason: Constipation Oxcarbazepine (Trileptal) 600 mg PO BID [facility] Last Admin: 04/18/18 17:51 Dose: 600 mg Pantoprazole Sodium (Protonix Ec Tab) 40 mg PO DAILY [facility] Last Admin: 04/18/18 09:08 Dose: 40 mg Perphenazine (Perphenazine) 2 mg PO TID [facility] Last Admin: 04/18/18 17:51 Dose: 2 mg Trazodone HCl (Desyrel) 50 mg PO HS [facility] Last Admin: 04/18/18 21:13 Dose: 50 mg
[2018-04-19] MEDS: Pantoprazole 40 mg EC Tab PO SCH (08:56)
--- NOTE | 2018-04-19 12:24 | PCM.PYCHPN ---
Psychiatric Progress Note - Psychiatric Progress Note Patient seen today, length of contact: pt evaluated discussed with team chart reviewed Patient Chief Complaint: The voices are almost gone Problems Identified/Issues Discussed: pt evaluated in day room,reported better mood, affect less anxious, reported clearing off of the auditory hallucinations, no reported side effect of medications less anxious and less irritable, pt denied command hallucinations, denied suicidal or homicidal ideation Medical Problems: one hospitalization in 2005 Medication Change: No Medical Record Reviewed: Yes Mental Status Examination - Cognitive Function Orientation: Person, Place Attention: WNL Concentration: Poor Association: WNL Decription of patient's judgement and insights: fair insight , and judgment - Mood Mood: Depressed, Anxious - Affect Affect: Constricted, Depressed - Speech Speech: Soft - Formal Thought Process Formal Thought Process: Hallucinations, Circumstantial - Suicidal Ideation Suicidal Ideation: No - Homicidal Ideation Homicidal Ideation: No Goal/Treatment Plan - Goal/Treatment Plan Need for Continued Stay: Severe depression anxiety, Discharge may exacerbated symptoms Progress Toward Problem(s) and Goals/Treatment Plan: perphenazine 2mg tid and discontinue risperidone to 2mg qhs luvox 100mg qhs trileptal 600mg bid trazodone 50mg qhs monitor pt for psychopharmacological effects and side effect profile r
[2018-04-20] MEDS: Pantoprazole 40 mg EC Tab PO SCH (09:13)
--- NOTE | 2018-04-20 15:07 | PCM.PYCHPN ---
Psychiatric Progress Note - Psychiatric Progress Note Patient seen today, length of contact: pt evaluated discussed with team chart reviewed Patient Chief Complaint: I AM BETTER WITH THE NEW MEDICINE Problems Identified/Issues Discussed: PT EVALUATED, REPORTED CLEARING OFF OF THE AUDITORY HALLUCINATIONS, CONTINUES TO HAVE EPISODES OF ELEVATED MOOD AND IRRITABILITY, BUT LESS DEPRESSION, NO REPORTED SIDE EFFECTS OF MEDICATIONS , DENIED SUICIDAL OR HOMICIDAL IDEATION Medical Problems: one hospitalization in 2005 DSM 5 Symptoms Update: SCHIZOAFFECTIVE DISORDER BIPOLAR Medication Change: No Medical Record Reviewed: Yes Mental Status Examination - Cognitive Function Orientation: Person, Place Attention: WNL Concentration: Poor Association: WNL Decription of patient's judgement and insights: fair insight , and judgment - Mood Mood: Depressed, Anxious - Affect Affect: Constricted, Depressed - Speech Speech: Soft - Formal Thought Process Formal Thought Process: Hallucinations, Circumstantial - Suicidal Ideation Suicidal Ideation: No - Homicidal Ideation Homicidal Ideation: No Goal/Treatment Plan - Goal/Treatment Plan Need for Continued Stay: Severe depression anxiety, Discharge may exacerbated symptoms Progress Toward Problem(s) and Goals/Treatment Plan: perphenazine 2mg tid and discontinue risperidone to 2mg qhs luvox 100mg qhs trileptal 600mg bid trazodone 50mg qhs monitor pt for psychopharmacological effects and side effect profile r
--- NOTE | 2018-04-21 01:29 | CP.PCM.PN ---
Subjective - Date & Time of Evaluation Date of Evaluation: 05/20/18 Objective - Vital Signs/Intake and Output Vital Signs (last 24 hours): Temp Pulse Resp BP Pulse Ox 98.1 F 67 17 88/47 L 04/20/18 09:37 04/20/18 18:26 04/20/18 09:37 04/20/18 18:26 - Medications Medications: Current Medications Acetaminophen (Tylenol 325mg Tab) 650 mg PO Q4 PRN PRN Reason: Pain, moderate (4-7) Al Hydrox/Mg Hydrox/Simethicone (Maalox Plus 30 Ml) 30 ml PO Q4 PRN PRN Reason: Dyspepsia Amlodipine Besylate (Norvasc) 2.5 mg PO BID [facility] Last Admin: 04/20/18 18:26 Dose: Not Given Benztropine Mesylate (Cogentin) 0.5 mg PO TID [facility] Last Admin: 04/20/18 18:24 Dose: 0.5 mg Diphenhydramine HCl (Benadryl) 50 mg IM Q6 PRN PRN Reason: Extrapyramidal S/S Unable PO Diphenhydramine HCl (Benadryl) 50 mg PO Q6 PRN PRN Reason: Extrapyramidal Symptoms Diphenhydramine HCl (Benadryl) 50 mg PO HS PRN PRN Reason: Sleep Last Admin: 04/16/18 21:04 Dose: 50 mg Fluvoxamine Maleate (Luvox) 100 mg PO HS [facility] Last Admin: 04/20/18 21:10 Dose: 100 mg Haloperidol (Haldol) 5 mg PO Q4 PRN PRN Reason: Agitation Haloperidol Lactate (Haldol) 5 mg IM Q4 PRN PRN Reason: Agitation, Unable to Take PO Lorazepam (Ativan) 2 mg IM Q6 PRN PRN Reason: Anxiety/Agitation,Unable PO Lorazepam (Ativan) 1 mg PO Q6 PRN PRN Reason: Anxiety/Agitation Magnesium Hydroxide (Milk Of Magnesia) 30 ml PO HS PRN PRN Reason: Constipation Oxcarbazepine (Trileptal) 600 mg PO BID [facility] Last Admin: 04/20/18 18:28 Dose: 600 mg Pantoprazole Sodium (Protonix Ec Tab) 40 mg PO DAILY [facility] Last Admin: 04/20/18 09:13 Dose: 40 mg Perphenazine (Perphenazine) 2 mg PO TID [facility] Last Admin: 04/20/18 18:24 Dose: 2 mg Trazodone HCl (Desyrel) 50 mg PO HS [facility] Last Admin: 04/20/18 21:10 Dose: 50 mg Assessment and Plan (1) H/O pulmonic valve repair Status: Acute (2) Schizoaffective disorder Status: Acute (3) Atypical chest pain Status: Resolved
--- NOTE | 2018-04-21 01:29 | CP.PCM.PN ---
Subjective - Date & Time of Evaluation Date of Evaluation: 04/20/18 Objective - Vital Signs/Intake and Output Vital Signs (last 24 hours): Temp Pulse Resp BP Pulse Ox 98.1 F 67 17 88/47 L 04/20/18 09:37 04/20/18 18:26 04/20/18 09:37 04/20/18 18:26 - Medications Medications: Current Medications Acetaminophen (Tylenol 325mg Tab) 650 mg PO Q4 PRN PRN Reason: Pain, moderate (4-7) Al Hydrox/Mg Hydrox/Simethicone (Maalox Plus 30 Ml) 30 ml PO Q4 PRN PRN Reason: Dyspepsia Amlodipine Besylate (Norvasc) 2.5 mg PO BID [facility] Last Admin: 04/20/18 18:26 Dose: Not Given Benztropine Mesylate (Cogentin) 0.5 mg PO TID [facility] Last Admin: 04/20/18 18:24 Dose: 0.5 mg Diphenhydramine HCl (Benadryl) 50 mg IM Q6 PRN PRN Reason: Extrapyramidal S/S Unable PO Diphenhydramine HCl (Benadryl) 50 mg PO Q6 PRN PRN Reason: Extrapyramidal Symptoms Diphenhydramine HCl (Benadryl) 50 mg PO HS PRN PRN Reason: Sleep Last Admin: 04/16/18 21:04 Dose: 50 mg Fluvoxamine Maleate (Luvox) 100 mg PO HS [facility] Last Admin: 04/20/18 21:10 Dose: 100 mg Haloperidol (Haldol) 5 mg PO Q4 PRN PRN Reason: Agitation Haloperidol Lactate (Haldol) 5 mg IM Q4 PRN PRN Reason: Agitation, Unable to Take PO Lorazepam (Ativan) 2 mg IM Q6 PRN PRN Reason: Anxiety/Agitation,Unable PO Lorazepam (Ativan) 1 mg PO Q6 PRN PRN Reason: Anxiety/Agitation Magnesium Hydroxide (Milk Of Magnesia) 30 ml PO HS PRN PRN Reason: Constipation Oxcarbazepine (Trileptal) 600 mg PO BID [facility] Last Admin: 04/20/18 18:28 Dose: 600 mg Pantoprazole Sodium (Protonix Ec Tab) 40 mg PO DAILY [facility] Last Admin: 04/20/18 09:13 Dose: 40 mg Perphenazine (Perphenazine) 2 mg PO TID [facility] Last Admin: 04/20/18 18:24 Dose: 2 mg Trazodone HCl (Desyrel) 50 mg PO HS [facility] Last Admin: 04/20/18 21:10 Dose: 50 mg Assessment and Plan (1) H/O pulmonic valve repair Status: Acute (2) Schizoaffective disorder Status: Acute (3) Atypical chest pain Status: Resolved
[2018-04-21] MEDS: Pantoprazole 40 mg EC Tab PO SCH (09:59)
--- NOTE | 2018-04-21 10:10 | PCM.PYCHPN ---
Psychiatric Progress Note - Psychiatric Progress Note Patient seen today, length of contact: pt evaluated discussed with team chart reviewed Patient Chief Complaint: I get anxious at times Problems Identified/Issues Discussed: PT on evaluation presenting with brighter affect, reported clearing off of the auditory hallucinations , continues to have episodes of anxiety, discussed adding neurontin prn, pt denied any current thoughts of self harm, no reported side effects of medications Medical Problems: one hospitalization in 2005 DSM 5 Symptoms Update: schizoaffective disorder obsessive compulsive disorder Medication Change: No Medical Record Reviewed: Yes Mental Status Examination - Cognitive Function Orientation: Person, Place Attention: WNL Concentration: Poor Association: WNL Decription of patient's judgement and insights: fair insight , and judgment - Mood Mood: Depressed, Anxious - Affect Affect: Constricted, Depressed - Speech Speech: Soft - Formal Thought Process Formal Thought Process: Circumstantial - Suicidal Ideation Suicidal Ideation: No - Homicidal Ideation Homicidal Ideation: No Goal/Treatment Plan - Goal/Treatment Plan Need for Continued Stay: Severe depression anxiety, Discharge may exacerbated symptoms Progress Toward Problem(s) and Goals/Treatment Plan: perphenazine 2mg tid and discontinue risperidone to 2mg qhs luvox 100mg qhs trileptal 600mg bid trazodone 50mg qhs neurontin 100mg tid prn monitor pt for psychopharmacological effects and side effect profile r
--- NOTE | 2018-04-21 23:42 | CP.PCM.PN ---
Subjective - Date & Time of Evaluation Date of Evaluation: 04/21/18 Time of Evaluation: 15:25 Objective - Vital Signs/Intake and Output Vital Signs (last 24 hours): Temp Pulse Resp BP Pulse Ox 96.9 F L 57 L 18 97/58 L 04/21/18 17:00 04/21/18 17:00 04/21/18 17:00 04/21/18 17:06 - Medications Medications: Current Medications Acetaminophen (Tylenol 325mg Tab) 650 mg PO Q4 PRN PRN Reason: Pain, moderate (4-7) Al Hydrox/Mg Hydrox/Simethicone (Maalox Plus 30 Ml) 30 ml PO Q4 PRN PRN Reason: Dyspepsia Amlodipine Besylate (Norvasc) 2.5 mg PO BID [facility] Last Admin: 04/21/18 17:06 Dose: Not Given Benztropine Mesylate (Cogentin) 0.5 mg PO TID [facility] Last Admin: 04/21/18 17:05 Dose: 0.5 mg Diphenhydramine HCl (Benadryl) 50 mg IM Q6 PRN PRN Reason: Extrapyramidal S/S Unable PO Diphenhydramine HCl (Benadryl) 50 mg PO Q6 PRN PRN Reason: Extrapyramidal Symptoms Diphenhydramine HCl (Benadryl) 50 mg PO HS PRN PRN Reason: Sleep Last Admin: 04/16/18 21:04 Dose: 50 mg Fluvoxamine Maleate (Luvox) 100 mg PO HS [facility] Last Admin: 04/21/18 21:11 Dose: 100 mg Gabapentin (Neurontin) 100 mg PO TID PRN PRN Reason: Anxiety Haloperidol (Haldol) 5 mg PO Q4 PRN PRN Reason: Agitation Haloperidol Lactate (Haldol) 5 mg IM Q4 PRN PRN Reason: Agitation, Unable to Take PO Lorazepam (Ativan) 2 mg IM Q6 PRN PRN Reason: Anxiety/Agitation,Unable PO Lorazepam (Ativan) 1 mg PO Q6 PRN PRN Reason: Anxiety/Agitation Magnesium Hydroxide (Milk Of Magnesia) 30 ml PO HS PRN PRN Reason: Constipation Oxcarbazepine (Trileptal) 600 mg PO BID [facility] Last Admin: 04/21/18 17:05 Dose: 600 mg Pantoprazole Sodium (Protonix Ec Tab) 40 mg PO DAILY [facility] Last Admin: 04/21/18 09:59 Dose: 40 mg Perphenazine (Perphenazine) 2 mg PO TID [facility] Last Admin: 04/21/18 17:03 Dose: 2 mg Trazodone HCl (Desyrel) 50 mg PO HS [facility] Last Admin: 04/21/18 21:11 Dose: 50 mg Assessment and Plan (1) H/O pulmonic valve repair Status: Acute (2) Schizoaffective disorder Status: Acute
[2018-04-22] MEDS: Pantoprazole 40 mg EC Tab PO SCH (08:59)
--- NOTE | 2018-04-22 13:13 | PCM.PYCHPN ---
Psychiatric Progress Note - Psychiatric Progress Note Patient seen today, length of contact: pt evaluated discussed with team chart reviewed Patient Chief Complaint: I feel my mood is getting leveled Problems Identified/Issues Discussed: PT evaluated with treatment team, presenting with brighter affect, reported clearing off of the auditory hallucinations , reported feeling less irritable, and no current symptoms of depression, continues to have some obsessions about organization and orderliness , pt denied any current thoughts of self harm, no reported side effects of medications Medical Problems: one hospitalization in 2006 DSM 5 Symptoms Update: schizoaffective disorder OCD Medication Change: No Medical Record Reviewed: Yes Mental Status Examination - Cognitive Function Orientation: Person, Place Attention: WNL Concentration: WNL Association: WNL Fund of Knowledge: WNL Decription of patient's judgement and insights: fair insight , and judgment - Mood Mood: Anxious, Neutral - Affect Affect: Constricted, Depressed - Speech Speech: Soft - Formal Thought Process Formal Thought Process: Circumstantial - Suicidal Ideation Suicidal Ideation: No - Homicidal Ideation Homicidal Ideation: No Goal/Treatment Plan - Goal/Treatment Plan Need for Continued Stay: Severe depression anxiety, Discharge may exacerbated symptoms Progress Toward Problem(s) and Goals/Treatment Plan: perphenazine 2mg tid and discontinue risperidone to 2mg qhs luvox 100mg qhs trileptal 600mg bid trazodone 50mg qhs neurontin 100mg tid prn monitor pt for psychopharmacological effects and side effect profile r
[2018-04-23] MEDS: Pantoprazole 40 mg EC Tab PO SCH (09:21)
[2018-04-23 19:06] VITALS: RESP 18
--- NOTE | 2018-04-23 19:13 | PCM.PYCHPN ---
Psychiatric Progress Note - Psychiatric Progress Note Patient seen today, length of contact: pt evaluated discussed with team chart reviewed Problems Identified/Issues Discussed: reports that he has a history of schizoaffective disorder, was feeling depressed. reported had missed approximately 2-3 doses of medications per month, current medications reportedly working no reported side effects staff report pt rx adherent participating unit based program Medical Problems: per chart Diagnostic Results: per chart per psychiatry per medicine per nursing per social organization professor' per recreational therapy Medication Change: No Medical Record Reviewed: Yes Consults ordered or reviewed: pt seen by hospitalist Mental Status Examination - Cognitive Function Orientation: Person, Place Attention: WNL Concentration: WNL Association: [facility] Fund of Knowledge: [facility] Decription of patient's judgement and insights: impaired - Mood Mood: Anxious, Neutral - Affect Affect: Constricted, Depressed - Speech Speech: Soft - Formal Thought Process Formal Thought Process: Circumstantial Psychotic Thoughts and Behaviors: some circumstantiality self regulates/minor redirection - Suicidal Ideation Suicidal Ideation: No - Homicidal Ideation Homicidal Ideation: No Goal/Treatment Plan - Goal/Treatment Plan Need for Continued Stay: Severe depression anxiety, Discharge may exacerbated symptoms Progress Toward Problem(s) and Goals/Treatment Plan: inpt milieu adjust meds per clinical status vital signs and clinical observation per protocol and per clinical status discharge planning in progress pt reports is agreeable to follow up at [facility] Estimated Date of D/C: 04/24/18 - Smoking Cessation Smoking Cessation Initiated: No Reason for not providing: pt defers
--- NOTE | 2018-04-23 23:08 | CP.PCM.PN ---
Subjective - Date & Time of Evaluation Date of Evaluation: 04/22/18 Objective - Vital Signs/Intake and Output Vital Signs (last 24 hours): Temp Pulse Resp BP Pulse Ox 97.7 F 66 18 96/55 L 04/23/18 17:00 04/23/18 19:19 04/23/18 17:00 04/23/18 19:19 - Medications Medications: Current Medications Acetaminophen (Tylenol 325mg Tab) 650 mg PO Q4 PRN PRN Reason: Pain, moderate (4-7) Al Hydrox/Mg Hydrox/Simethicone (Maalox Plus 30 Ml) 30 ml PO Q4 PRN PRN Reason: Dyspepsia Amlodipine Besylate (Norvasc) 2.5 mg PO BID [facility] Last Admin: 04/23/18 19:19 Dose: Not Given Benztropine Mesylate (Cogentin) 0.5 mg PO TID [facility] Last Admin: 04/23/18 18:01 Dose: 0.5 mg Diphenhydramine HCl (Benadryl) 50 mg IM Q6 PRN PRN Reason: Extrapyramidal S/S Unable PO Diphenhydramine HCl (Benadryl) 50 mg PO Q6 PRN PRN Reason: Extrapyramidal Symptoms Diphenhydramine HCl (Benadryl) 50 mg PO HS PRN PRN Reason: Sleep Last Admin: 04/16/18 21:04 Dose: 50 mg Fluvoxamine Maleate (Luvox) 100 mg PO HS [facility] Last Admin: 04/23/18 21:09 Dose: 100 mg Gabapentin (Neurontin) 100 mg PO TID PRN PRN Reason: Anxiety Last Admin: 04/22/18 08:59 Dose: 100 mg Haloperidol (Haldol) 5 mg PO Q4 PRN PRN Reason: Agitation Haloperidol Lactate (Haldol) 5 mg IM Q4 PRN PRN Reason: Agitation, Unable to Take PO Lorazepam (Ativan) 2 mg IM Q6 PRN PRN Reason: Anxiety/Agitation,Unable PO Lorazepam (Ativan) 1 mg PO Q6 PRN PRN Reason: Anxiety/Agitation Magnesium Hydroxide (Milk Of Magnesia) 30 ml PO HS PRN PRN Reason: Constipation Oxcarbazepine (Trileptal) 600 mg PO BID [facility] Last Admin: 01/03/19 18:01 Dose: 600 mg Pantoprazole Sodium (Protonix Ec Tab) 40 mg PO DAILY [facility] Last Admin: 04/23/18 09:21 Dose: 40 mg Perphenazine (Perphenazine) 2 mg PO TID [facility] Last Admin: 04/23/18 18:01 Dose: 2 mg Trazodone HCl (Desyrel) 50 mg PO HS [facility] Last Admin: 04/23/18 21:09 Dose: 50 mg Assessment and Plan (1) H/O pulmonic valve repair Status: Acute (2) Schizoaffective disorder Status: Acute
--- NOTE | 2018-04-23 23:08 | CP.PCM.PN ---
Subjective - Date & Time of Evaluation Date of Evaluation: 04/23/18 Objective - Vital Signs/Intake and Output Vital Signs (last 24 hours): Temp Pulse Resp BP Pulse Ox 97.7 F 66 18 96/55 L 04/23/18 17:00 04/23/18 19:19 04/23/18 17:00 04/23/18 19:19 - Medications Medications: Current Medications Acetaminophen (Tylenol 325mg Tab) 650 mg PO Q4 PRN PRN Reason: Pain, moderate (4-7) Al Hydrox/Mg Hydrox/Simethicone (Maalox Plus 30 Ml) 30 ml PO Q4 PRN PRN Reason: Dyspepsia Amlodipine Besylate (Norvasc) 2.5 mg PO BID [facility] Last Admin: 04/23/18 19:19 Dose: Not Given Benztropine Mesylate (Cogentin) 0.5 mg PO TID [facility] Last Admin: 04/23/18 18:01 Dose: 0.5 mg Diphenhydramine HCl (Benadryl) 50 mg IM Q6 PRN PRN Reason: Extrapyramidal S/S Unable PO Diphenhydramine HCl (Benadryl) 50 mg PO Q6 PRN PRN Reason: Extrapyramidal Symptoms Diphenhydramine HCl (Benadryl) 50 mg PO HS PRN PRN Reason: Sleep Last Admin: 04/16/18 21:04 Dose: 50 mg Fluvoxamine Maleate (Luvox) 100 mg PO HS [facility] Last Admin: 04/23/18 21:09 Dose: 100 mg Gabapentin (Neurontin) 100 mg PO TID PRN PRN Reason: Anxiety Last Admin: 04/22/18 08:59 Dose: 100 mg Haloperidol (Haldol) 5 mg PO Q4 PRN PRN Reason: Agitation Haloperidol Lactate (Haldol) 5 mg IM Q4 PRN PRN Reason: Agitation, Unable to Take PO Lorazepam (Ativan) 2 mg IM Q6 PRN PRN Reason: Anxiety/Agitation,Unable PO Lorazepam (Ativan) 1 mg PO Q6 PRN PRN Reason: Anxiety/Agitation Magnesium Hydroxide (Milk Of Magnesia) 30 ml PO HS PRN PRN Reason: Constipation Oxcarbazepine (Trileptal) 600 mg PO BID [facility] Last Admin: 01/03/19 18:01 Dose: 600 mg Pantoprazole Sodium (Protonix Ec Tab) 40 mg PO DAILY [facility] Last Admin: 04/23/18 09:21 Dose: 40 mg Perphenazine (Perphenazine) 2 mg PO TID [facility] Last Admin: 04/23/18 18:01 Dose: 2 mg Trazodone HCl (Desyrel) 50 mg PO HS [facility] Last Admin: 04/23/18 21:09 Dose: 50 mg Assessment and Plan (1) H/O pulmonic valve repair Status: Acute (2) Schizoaffective disorder Status: Acute
--- NOTE | 2018-04-24 08:49 | PCM.PYCHDC ---
Mental Status Examination - Mental Status Examination Orientation: Person, Place, Situation, Time Memory: Intact Mood: Neutral Affect: Broad Speech: Appropriate Attention: WNL Concentration: WNL Association: WNL Fund of Knowledge: WNL Formal Thought Process: No Impairment Description of patient's judgement and insight: Fair I/J Psychotic Thoughts and Behaviors: No AH/VH/paranoia/delusions Suicidal Ideation: No Current Homicidal Ideation?: No Discharge Summary - Discharge Note Reason for Hospitalization: As per initial HPI note by Dr. Robledo: pt is a 37ys old male with previous psychiatric diagnosis of schizoaffective disorder and polysubstance use in full sustained remission presented to ER due to increased depression with passive suicidal ideation as the patient for past three weeks has been experiencing derogatory auditory hallucinations putting him down and telling him he is worthless, pt also has been experiencing mood swings, at times increasingly depressed and this alternating with episodes of irritability and anger , reported poor sleep and poor appetite with significant weight loss on evaluation patient presenting with ideas of reference reporting that certain colors and certain numbers has been hinting in his mind to certain thoughts pt also reported feeling tormented by the auditory hallucinations mainly at night, denied command hallucinations, denied active thoughts of self harm on the unit Consultations:: List each consultation separately and include: 1. Reason for request. 2. Findings. 3. Follow-up Consultations: Medicine consult Summary of Hospital Course include:: 1. Description of specific treatment plan utilized for patients during their course of treatmen. 2. Summarize the time- course for resolution of acute symptoms and/or regressed behaviors. 3. Describe issues identified and worked on during hospitalization. 4. Describe medication utilized. 5. Describe medical problems identified and treated. 6. Reassessment of suicide risk Summary of Hospital Course: Patient was admitted to the psychiatry unit. Individual and group therapy were provided. Patient was stabilized on Luvox 100 mg PO HS, Cogentin 0.5 mg PO TID, Trileptal 600 mg PO BID, Perphenazine 2 mg PO TID And Trazodone 50 mg PO HS. He denies acute depression/anxiety/AH/VH/SI/HI. He is currently psychiatrically stable for discharge with outpatient follow-up. - Final Diagnosis (DSM 5) Condition upon Discharge: STABLE DSM 5: Schizoaffective Disorder Disposition: HOME/ ROUTINE Follow-up Treatment Plan: Schizoaffective Disorder -Patient is psychiatrically stable for discharge with outpatient follow-up Prescriptions/Medication Reconciliation: Benztropine [Cogentin] 0.5 mg PO TID #90 tab fluvoxaMINE [Luvox] 100 mg PO HS #30 tab OXcarbazepine [Trileptal] 600 mg PO BID #60 tab Perphenazine 2 mg PO TID #90 tab traZODone [Desyrel] 50 mg PO HS #30 tab - Smoking Cessation Smoking Cessation Medication prescribed: No Reason for not providing: Not indicataed - Antipsychotic Medications Pt discharged on 2 or more routine antipsychotic medications: No
[2018-04-24] MEDS: Pantoprazole 40 mg EC Tab PO SCH (08:50)
[2018-04-24 09:18] VITALS: BP 111/64; PULSE 59; TEMP 97.9
--- NOTE | 2018-04-24 23:33 | CP.PCM.PN ---
Subjective - Date & Time of Evaluation Date of Evaluation: 04/24/18 Time of Evaluation: 11:15 - Subjective Subjective: I was called about the Norvasc 2.5mg BID which the patient uses after Pulmonary Valve surgery. However patients run Low 90's without any medication. Will hold Norvasc upon discharge, and will be reevalauted by his informaticist on 05/16/2018. no More chest pain since hospitalization. Objective - Vital Signs/Intake and Output Vital Signs (last 24 hours): Temp Pulse Resp BP Pulse Ox 97.9 F 59 L 18 111/64 04/24/18 09:00 04/24/18 09:00 04/24/18 09:00 04/24/18 09:00 Assessment and Plan (1) H/O pulmonic valve repair Status: Acute (2) Schizoaffective disorder Status: Acute (3) Hypotension Assessment & Plan: Low 90's Hold Norvasc until patient sees patient Status: Acute
== END 2018-04-24 13:36 | disposition home or self-care (01) | DRG 885 ==
LOC: H.PSYCH 23:16
PROVIDERS: ADMIT Psychiatry & Neurology Psychiatry; ATTEND Psychiatry & Neurology Psychiatry
PROC: GZHZZZZ Group Psychotherapy (ICD-10-PCS; principal; 2018-04-15)
PROC: GZ51ZZZ Individual Psychotherapy, Behavioral (ICD-10-PCS; 2018-04-15)
PROC: GZ56ZZZ Individual Psychotherapy, Supportive (ICD-10-PCS; 2018-04-15)
DX: F25.0 Schizoaffective disorder, bipolar type (principal); R45.851 Suicidal ideations; F41.9 Anxiety disorder, unspecified; F42.9 Obsessive-compulsive disorder, unspecified; K21.9 Gastro-esophageal reflux disease without esophagitis; Z79.899 Other long term (current) drug therapy; Z87.891 Personal history of nicotine dependence; Z95.1 Presence of aortocoronary bypass graft; Z95.2 Presence of prosthetic heart valve; I95.9 Hypotension, unspecified; R07.89 Other chest pain; F12.11 Cannabis abuse, in remission; F10.11 Alcohol abuse, in remission

== ENCOUNTER 2018-05-03 17:55 | Inpatient (IN) | payer MEDICARE, OTHER ==
[2018-05-03 17:55] VITALS: BMI 20.5
--- NOTE | 2018-05-03 19:52 | ED PDOC ---
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 Patient states he felt like he had a psychotic break. Patient reports of having racing thought with hearing voices, telling him to kill himself and began telling mother she should kill herself. Patient realized that he was not doing well and thus requested mother to brink him in for further evaluation. Otherwise, patient denies suicidal plan, homicidal ideation, visual hallucinations and any current physical complaints including chest pain, shortness of breath, abdominal pain and palpitations. Patient states voices are just being very negative. PMD: Keo Richard Past Medical History Reviewed: Historical Data, Nursing Documentation, Vital Signs Vital Signs: Last Vital Signs Temp 98.4 F 05/03/18 18:03 Pulse 114 H 05/03/18 18:03 Resp 18 05/03/18 18:03 BP 134/67 05/03/18 18:03 Pulse Ox 99 05/03/18 18:03 - Medical History PMH: Bipolar Disorder, Cardia Arrhythmia, Depression, Schizophrenia Denies: Chronic Kidney Disease Other PMH: Schizoaffective Disorder and VATER Syndrome - Surgical History Surgical History: CABG - Family History Family History: States: Unknown Family Hx - Living Arrangements Living Arrangements: With Family - Home Medications Home Medications: Ambulatory Orders Medication Instructions Recorded Omeprazole 40 mg PO DAILY 04/13/18 amLODIPine [Norvasc] 2.5 mg PO BID 04/13/18 Benztropine [Cogentin] 0.5 mg PO TID #90 tab 04/24/18 Perphenazine 2 mg PO TID #90 tab 04/24/18 fluvoxaMINE [Luvox] 100 mg PO HS #30 tab 04/24/18 traZODone [Desyrel] 50 mg PO HS #30 tab 04/24/18 OXcarbazepine [Trileptal] 300 mg PO TID 05/03/18 - Allergies Allergies/Adverse Reactions: Allergies Allergy/AdvReac Type Severity Reaction Status Date / Time Sulfa (Sulfonamide Allergy RASH Verified 04/13/18 18:33 Antibiotics) Review of Systems ROS Statement: Except As Marked, All Systems Reviewed And Found Negative Psych: Positive for: Suicidal ideation, Other (auditory hallucinations) Physical Exam - Reviewed Nursing Documentation Reviewed: Yes Vital Signs Reviewed: Yes - Physical Exam Appears: Positive for: No Acute Distress Head Exam: Positive for: ATRAUMATIC Skin: Positive for: Normal Color, Warm, Dry Eye Exam: Positive for: Normal appearance Neck: Positive for: Normal, Painless ROM Cardiovascular/Chest: Positive for: Murmur (hear throughout precordium (diastolyic and systolic)) Respiratory: Positive for: Normal Breath Sounds. Negative for: Respiratory Distress Gastrointestinal/Abdominal: Positive for: Normal Exam, Soft. Negative for: Tenderness, Distended Extremity: Positive for: Normal ROM Neurologic/Psych: Positive for: Alert, Oriented, Mood/Affect (flat affect), Other (speaking coherently). Negative for: Motor/Sensory Deficits - Laboratory Results Result Diagrams: 05/03/18 19:56 05/03/18 19:56 - ECG O2 Sat by Pulse Oximetry: 99 (RA) Pulse Ox Interpretation: Normal Medical Decision Making Medical Decision Making: Time:1952 Plan: -- EKG -- Alcohol Serum -- CMP -- Urine Drug Screen -- CBC with differentials -- CXR Portable -- Ativan 2 mg IM -- 1:1 Observation -- Patient seen by track repair worker and to be admitted for schizoaffective disorder under Dr. Patino's service 20:30: labs shows NA = 129 and Cl 87 with Glucose 205, T: 100.2F. Given 1L Normal saline fluid bolus. Pt denied fevers, chills, cough, sore throat, n/v, diarrhea. 00:15: VSS, completed 1L normal saline. Patient is medically stable for psychiatric admission. Scribe Attestation: Documented by Andrey Carrero, acting as a scribe Darell Vang PA-C. Provider Scribe Attestation: All medical record entries made by the Scribe were at my direction and personally dictated by me. I have reviewed the chart and agree that the record accurately reflects my personal performance of the history, physical exam, medical decision making, and the department course for this patient. I have also personally directed, reviewed, and agree with the discharge instructions and disposition. Disposition - Clinical Impression Clinical Impression: Schizoaffective disorder - Patient ED Disposition Is Patient to be Admitted: Yes Discussed With : Karen Patino Doctor Will See Patient In The: Hospital - Disposition Disposition: Transfer of Care Disposition Time: 00:15 Condition: FAIR
[2018-05-03 20:05] LABS: BASO % 0.1 % (0.0-2.0); HEMOGLOBIN 15.3 g/dL (12.0-18.0); LYMPH # 0.4 K/uL (1.0-4.3); LYMPH % 3.5 % (20.0-40.0); MEAN CORPUSCULAR HEMOGLOBIN 28.6 pg (27.0-31.0); MEAN CORPUSCULAR HGB CONC 33.7 g/dL (33.0-37.0); MEAN PLATELET VOLUME 8.9 fl (7.2-11.7); MONO # 0.5 K/uL (0.0-0.8); MONO % 4.6 % (0.0-10.0); NEUT # 10.4 K/uL (1.8-7.0); NEUT % 91.8 % (50.0-75.0); PLATELET COUNT 157 K/uL (130-400); RBC 5.35 Mil/uL (4.40-5.90); RED CELL DISTRIBUTION WIDTH 13.9 % (11.5-14.5); WHITE BLOOD COUNT 11.3 K/uL (4.8-10.8)
[2018-05-03 20:09] LABS: URINE BACTERIA OCC (<OCC); URINE BILIRUBIN NEGATIVE (NEGATIVE); URINE BLOOD NEGATIVE (NEGATIVE); URINE CLARITY CLOUDY (Clear); URINE COLOR YELLOW (YELLOW); URINE GLUCOSE (UA) 50 mg/dL (NEGATIVE); URINE LEUKOCYTE ESTERASE TRACE Leu/uL (Negative); URINE PROTEIN 100 mg/dL (NEGATIVE); URINE UROBILINOGEN 0.2-1.0 mg/dL (0.2-1.0)
[2018-05-03 20:12] LABS: ALB/GLOB RATIO 1.7 (1.0-2.1); ALBUMIN 4.7 g/dL (3.5-5.0); ALT/SGPT 50 U/L (21-72); AST/SGOT 24 U/L (17-59); BLOOD UREA NITROGEN 17 mg/dl (9-20); CALCIUM 9.7 mg/dL (8.4-10.2); GFR NON-AFRICAN AMERICAN > 60
[2018-05-03 20:18] LABS: BARBITURATES, UR NEGATIVE (NEGATIVE); BENZODIAZEPINES, UR NEGATIVE (NEGATIVE); OPIATES, UR NEGATIVE (NEGATIVE); PHENCYCLIDINE, UR NEGATIVE (NEGATIVE)
[2018-05-03 20:31] LABS: LYMPHOCYTE 5 % (20-50); MONOCYTE 3 % (0-10); NEUTROPHIL 92 % (42-75); PLATELET ESTIMATE NORMAL (NORMAL); TOTAL CELLS COUNTED 100
[2018-05-03] MEDS ORDERED: Sodium Chloride 0.9% 1,000 ML IV SCH (22:00)
[2018-05-04 00:26] VITALS: O2SAT 99
[2018-05-04] MEDS ORDERED: Alum-Mag Hydrox-Simethicone Susp (30 mL) PO PRN (00:46)
[2018-05-04] MEDS ORDERED: DiphenhydrAMINE 50 mg/ml Inj IM PRN (00:46)
[2018-05-04] MEDS ORDERED: Magnesium Hydroxide Susp 30 ml UD PO PRN (00:46)
--- NOTE | 2018-05-04 01:18 | PCM.BM ---
<Shweta Soria Mary - Last Filed: 05/04/18 01:16> Treatment Plan Problems - Problems identified on initial assessmt Anxiety Date Initiated: 05/04/18 Time Initiated: 01:16 Assessment reference: NA Status: Active Panic attacks Date Initiated: 05/04/18 Time Initiated: 01:16 Assessment reference: NA Status: Active Altered sleep patterns Date Initiated: 05/04/18 Time Initiated: 01:17 Assessment reference: NA Status: Active Treatment assets and liabiliti Patient Assests: adapts well, cooperative, self-reliant, ADL independent, good support system, good past tx response (Pt. reports maintaining sobriety x10 years (07/18/07). Pt. denies inpt admissions since 2005.), cognitively intact Patient Liabilities: medical problems - Milieu Protocol Maintain good personal hygiene: daily Encourage regular showers, other Remind patient to perform daily oral care (prn), other Assist patient to perform ADL's (prn) Conduct patient checks and document Observation sheet: Q15 minutes Maintain personal safety: every shift Educate patient to report safety concerns to staff, every shift Monitor environment for contraband/sharps Medication safety: Monitor for expected outcome, potential side effects: every shift, Assess barriers to learning: every shift, Assess readiness for medication education: every shift <Trice Ramirez - Last Filed: 05/14/18 09:55> Treatment assets and liabiliti Patient Assests: adapts well, cooperative, insightful, motivated, self-reliant, ADL independent, good support system (Pt. reports having a loving relationship with mother, sister and niece/nephew. ), good past tx response, cognitively intact, strong sara Patient Liabilities: live alone ( Pt. reports currently residing with mother. Pt. denies strained relationships but identifies living with mother as a stressor. ), substance abuse (Pt. reports significant hx of polysubstance abuse (marijuana, ETOH, pcp, cocaine). Pt. reports maintaining sobriety x10 years (07/18/07). Pt. reports being actively involved in AA/NA. Pt. reports hx of ER[facility] OPS. ), medical problems (Pt. reports extensive medical hx (pulmonary valve replacement/perforated anus- infant, intentional obstruction-young adulthood, colostomy). Please see H&P.) Family Contact Family involvement: Family/SO is involved Family contact: Patient agrees to contact, Family has been contacted by patient, Telephone contact initiated by staff Family contact name: (Frida [phone]) Family contacted how many times per week?: 2 Family contact comment: Commercial Singer placed call to pts mother/primary support (Frida [phone]) to discuss progress on 3NP and address family concerns. Pts mother has been in communication with Dr. Robledo. Recommended medication regimens discussed. Pts mother reports being agreeable to pt being restarted on medications he was discharged on in 04/2017. Pts mother reports having observed significant improvement in pts mood and bxs wince admission, stating His thoughts are clearer. Importance of adherence with appropriate level of aftercare to ensure safety/functioning in the community and reduce risk of future hospitalizations discussed. Pts mother expressed being glad pt is still agreeable to PHP with [facility]. Commercial Singer to continue providing clinical updates through-out pts stabilization and discharge planning. . Commercial Singer received voicemail from pts mother reporting that pt. sounds "clearer and really good" on the phone today. Pts mother expressed concerns regarding pts presentation on 3NP through- out the weekend. Pts mother agreeable to recommended medication changes and pts return to [facility] upon stabilization. Commercial Singer to follow-up. Original Note: Commercial Singer placed call to pts mother (Frida [phone]) to discuss pts progress on 3NP a nd address family concerns. Commercial Singer left brief message on identified voicemail. Commercial Singer awaiting response. - Outside Agency Agency 1 Care involvment: Following patient during stay, Information-sharing, Other (Patient expected to begin partial hospital program with [facility] upon stabilization) Agency contact name: [facility] Agency contact number: [phone] - Goals for Treatment Patient goals for treatment: Patient to continue stabilization on 3NP through medication management and group/supportive therapy to address sxs of paranoia, baptist preoccupation, AH/VH, and depression. Patient to be encouraged to attend groups regularly to promote self-awareness, sobriety, and improve insight, compliance, coping skills and self-esteem. Patient to be provided with referral for appropriate level of aftercare to reduce risk of future hospitalizations and ensure safety in the community. Pt. identified "feeling more like myself" as primary tx goal, explaining goal to feel less anxious, be better able to focus on tasks, and improve sleep hygiene. Discharge/Continuing Care - Education Needs Education Needs: Family Medication, Family Diagnosis/Disease Process, Family Coping Skills, Family Community resources, Family Aftercare Safety Plan, Patient Medication, Patient Diagnosis/Disease Process, Patient Coping Skills, Patient Community resources, Patient Aftercare Safety Plan - Discharge Discharge Criteria: Tolerates medication w/o severe side effects, Free of Suicidal thoughts, Free of Homicidal thoughts, Free of paranoid thoughts, Free of agitation, Normal sleep pattern, Ability to care for self, Reduction of target symptoms Discharge to:: Home, With Family, Other ([facility]) - Treatment Team Participation Patient/Family/SO Statement: 05/14/18 09:43 Pt attended tx team to discuss progress on 3NP and tx goals. Pt. reported having had a "rough" weekend secondary to being on 3NP with peers with different acuity. Pt. reported significant improvement in mood on 05/13, expressing feeling less anxious and depressed, having a clearer thought process, and "getting a little sleep". Pt. presents with brighter affect, less internally preoccupied, and more easily engaged in discussion regarding tx. Pt. less restless and less paranoid towards staff and peers. Recommendation to start Haldol Dec was made by tx team on 05/13. Benefits of injectable medication discussed at length (reduce risk of rehospitalizations, improvement in adherence). Pt. initially hesitant, explaining that due to hx of surgeries and childhood hx of extensive medical conditions, pt. does not like needles. Validation and emotional support provided. Pt. ultimately agreeable to injectable. Discussed with Family/SO: Yes Was Patient/Family/SO present at Treatment Team Meeting: Yes
--- NOTE | 2018-05-04 07:24 | CARD ---
APPROVED REPORT Date of service: 05/03/2018 EKG Measurement Heart [id number] <Conclusion> Sinus tachycardia with premature atrial complexes Possible Left atrial enlargement Right bundle branch block Possible Inferior infarct, age undetermined Abnormal ECG
[2018-05-04 08:14] LABS: BASO % 0.4 % (0.0-2.0); EOS % 0.2 % (0.0-4.0); HEMOGLOBIN 16.5 g/dL (12.0-18.0); LYMPH # 1.3 K/uL (1.0-4.3); LYMPH % 17.9 % (20.0-40.0); MEAN CELL VOLUME 87.1 fl (80.0-94.0); MEAN CORPUSCULAR HEMOGLOBIN 28.5 pg (27.0-31.0); MEAN CORPUSCULAR HGB CONC 32.8 g/dL (33.0-37.0); MEAN PLATELET VOLUME 8.7 fl (7.2-11.7); MONO # 0.7 K/uL (0.0-0.8); MONO % 10.2 % (0.0-10.0); NEUT # 5.2 K/uL (1.8-7.0); NEUT % 71.3 % (50.0-75.0); NRBC % 0.1 % (0.0-0.0); RBC 5.8 Mil/uL (4.40-5.90); RED CELL DISTRIBUTION WIDTH 14.3 % (11.5-14.5); WHITE BLOOD COUNT 7.3 K/uL (4.8-10.8)
[2018-05-04 08:27] LABS: LDL CHOLESTEROL 68 mg/dL (0-129)
[2018-05-04 08:32] LABS: T4 8.27 ug/dl (5.5-11.0)
[2018-05-04 08:37] LABS: BLOOD UREA NITROGEN 11 mg/dl (9-20); GFR NON-AFRICAN AMERICAN > 60; HDL CHOLESTEROL 77 MG/DL (30-70)
--- NOTE | 2018-05-04 12:10 | RAD ---
Date of service: 05/03/2018 HISTORY: baseline COMPARISON: 04/13/2018. FINDINGS: LUNGS: The lungs are well inflated and clear. PLEURA: No pleural effusions or pneumothorax. CARDIOVASCULAR: The cardiac silhouette is stable and normal in size. There is elevation of the left ventricle. Status post median sternotomy no aortic atherosclerotic calcifications present. OSSEOUS STRUCTURES: Within normal limits for the patient's age. VISUALIZED UPPER ABDOMEN: Normal. OTHER FINDINGS: None. IMPRESSION: No active pulmonary disease.
--- NOTE | 2018-05-04 14:57 | PCM.PSYCH ---
Initial Psychiatric Evaluation - Initial Psychiatric Evaluation Type of Admission: Voluntary Legal Status: Capacity Chief Complaint (in patient's own words): I know they doubt me in the meetings History of Present Illness and Precipitating Events: pt is 37ys old male with previous diagnosis of schizoaffective disorder and OCD , recently discharged reportedly compliant with medications, presented to ER due to increased anxiety , and experiencing auditory hallucinations telling him to kill himself and others pt on evaluation floridly psychotic reported ideas of reference stating when he goes to NA meeting, all other members believe that his henriquez indicates that he wants to have multiple sexual partners, they also tell him he looks good meaning that they think he relapsed on drugs pt reported since discharge he has been increasingly depressed as one of his best friends is diagnosed with cancer and suffering pt reported that he continues to experience auditory hallucinations telling him he is worthless and putting him down pt denied active thoughts of self harm on the unit, denied homicidal ideation Current Medications: Active Medications Generic Name Dose Route Start Last Admin Trade Name Freq PRN Reason Stop Dose Admin Acetaminophen 650 mg 05/04/18 00:46 Tylenol 325mg Tab PO Q4 PRN pain 1-7 Al Hydrox/Mg Hydrox/Simethicone 30 ml 05/04/18 00:46 Maalox Plus 30 Ml PO Q4 PRN Dyspepsia Benztropine Mesylate 0.5 mg 05/04/18 22:00 Cogentin PO HS ARYAN Diphenhydramine HCl 50 mg 05/04/18 00:46 Benadryl IM Q6 PRN Extrapyramidal S/S Unable PO Diphenhydramine HCl 50 mg 05/04/18 00:46 05/04/18 08:31 Benadryl PO 50 mg Q6 PRN Administration Extrapyramidal Symptoms Diphenhydramine HCl 50 mg 05/04/18 00:46 Benadryl PO HS PRN Sleep Fluvoxamine Maleate 100 mg 05/04/18 22:00 Luvox PO HS ARYAN Haloperidol Lactate 5 mg 05/04/18 00:46 Haldol IM Q4 PRN Agitation, Unable to Take PO Haloperidol Lactate 5 mg 05/04/18 08:30 Haldol PO Q4 PRN Agitation Sodium Chloride 1,000 mls @ 500 mls/hr 05/03/18 22:00 05/03/18 22:10 Sodium Chloride 0.9% IV 05/04/18 21:49 500 mls/hr .Q2H ARYAN Administration Lorazepam 2 mg 05/04/18 00:46 Ativan IM Q6 PRN Anxiety/Agitation,Unable PO Lorazepam 1 mg 05/04/18 00:46 05/04/18 09:56 Ativan PO 1 mg Q8 PRN Administration Anxiety/Agitation Magnesium Hydroxide 30 ml 05/04/18 00:46 Milk Of Magnesia PO HS PRN Constipation Oxcarbazepine 300 mg 05/04/18 09:00 05/04/18 13:24 Trileptal PO 300 mg TID ARYAN Administration Perphenazine 2 mg 05/04/18 17:00 Perphenazine PO BID ARYAN Perphenazine 4 mg 05/04/18 22:00 Perphenazine PO HS ARYAN Trazodone HCl 50 mg 05/04/18 22:00 Desyrel PO HS [facility] Past Psychiatric History - Past Psychiatric History Explanation of prior treatment: multiple inpatient hospitalizations History of ETOH/Drug Use: polysubstance use in remission Pertinent Medical Hx (Current Medical&Sleep Prob, Allergies): Allergies Allergy/AdvReac Type Severity Reaction Status Date / Time Sulfa (Sulfonamide Allergy RASH Verified 04/13/18 18:33 Antibiotics) Omeprazole 40 mg PO DAILY 04/13/18 amLODIPine [Norvasc] 2.5 mg PO BID 04/13/18 Benztropine [Cogentin] 0.5 mg PO TID #90 tab 04/24/18 Perphenazine 2 mg PO TID #90 tab 04/24/18 fluvoxaMINE [Luvox] 100 mg PO HS #30 tab 04/24/18 traZODone [Desyrel] 50 mg PO HS #30 tab 04/24/18 OXcarbazepine [Trileptal] 300 mg PO TID 05/03/18 Mental Status Examination - Personal Presentation Personal Presentation: Looks stated age - Affect Affect: Constricted, Depressed - Motor Activity Motor Activity: Psychomotor Retardation - Reliability in Providing Information Reliability in Providing Information: Fair - Speech Speech: Relevant - Mood Mood: Depressed, Anxious - Formal Thought Process Formal Thought Process: Hallucinations, Delusions, Paranoia - Hallucinations/Delusions Hallucinations: Auditory - Obsessions/Compulsions Obsessions: Yes Compulsions: Yes - Cognitive Functions Orientation: Person, Place, Situation Sensorium: Alert Abstract Thinking: [place] Judgement: Imparied, as evidence by: Poor judgement - Risk Risk: Suicidal, Homicidal, Diminished functioning - Strength & Assets Inventory Strength & Assets Inventory: Family support DSM 5 DX - DSM 5 DSM 5 Diagnosis: schizoaffective disorder OCD generalized anxiety disorder - Recommended/Plan of Treatment Treatment Recommendations and Plan of Treatment: perphenazine 2mg bid amd 4mg qhs luvox 100mg qhs neurontin 100mg tid CBT group and supportive therapy
--- NOTE | 2018-05-04 22:48 | CP.PCM.CON ---
History of Present Illness - History of Present Illness History of Present Illness: CC: Irratic Behaviour and Suicidal Thoughts History of Present Illness: A 37 y/o male with a PMHx of Schizoaffective Disorder and VATER Syndrome brought in by mother due to Irratic behavior and suicidal thoughts. Patient states he felt like he had a psychotic break. Patient reports of having racing thought with hearing voices, telling him to kill himself and began telling mother she should kill herself. Patient realized that he was not doing well and thus requested mother to brink him in for further evaluation. Otherwise, patient denies suicidal plan, homicidal ideation, visual hallucinations and any current physical complaints including chest pain, shortness of breath, abdominal pain and palpitations. Patient states voices are just being very negative. Review of Systems - Review of Systems All systems: reviewed and no additional remarkable complaints except Review of Systems: as Per HPI Past Patient History - Past Medical History & Family History Past Medical History?: Yes Past Family History: Reviewed and not pertinent - Past Social History Smoking Status: Former Smoker Alcohol: None Drugs: Denies - CARDIAC Hx Cardia Arrhythmia: Yes - PULMONARY Hx Tuberculosis: No - NEUROLOGICAL HX Cerebrovascular Accident: No Hx Seizures: No - HEENT Hx HEENT Problems: No - RENAL Hx Chronic Kidney Disease: No - ENDOCRINE/METABOLIC Hx Endocrine Disorders: No - HEMATOLOGICAL/ONCOLOGICAL Hx Cancer: No Hx Human Immunodeficiency Virus (HIV): No - INTEGUMENTARY Hx Dermatological Problems: No - MUSCULOSKELETAL/RHEUMATOLOGICAL Hx Musculoskeletal Disorders: No Hx Falls: No - GASTROINTESTINAL Hx Gastrointestinal Disorders: Yes Hx Gastroesophageal Reflux: Yes Other/Comment: Hx Intestinal Obstruction - GENITOURINARY/GYNECOLOGICAL Hx Genitourinary Disorders: No Hx Sexually Transmitted Disorders: No - PSYCHIATRIC Hx Depression: Yes Hx Schizophrenia: Yes 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, 2007) - SURGICAL HISTORY Hx Surgeries: Yes Hx Coronary Artery Bypass Graft: Yes Hx Herniorrhaphy: Yes Hx Pulmonary Surgery: Yes (Pulmonary Valve Replacement) - ANESTHESIA Hx Anesthesia: Yes Hx Anesthesia Reactions: No Hx Malignant Hyperthermia: No Meds Allergies/Adverse Reactions: Allergies Allergy/AdvReac Type Severity Reaction Status Date / Time Sulfa (Sulfonamide Allergy RASH Verified 04/13/18 18:33 Antibiotics) - Medications Medications: Current Medications Acetaminophen (Tylenol 325mg Tab) 650 mg PO Q4 PRN PRN Reason: pain 1-7 Al Hydrox/Mg Hydrox/Simethicone (Maalox Plus 30 Ml) 30 ml PO Q4 PRN PRN Reason: Dyspepsia Amlodipine Besylate (Norvasc) 2.5 mg PO BID [facility] Benztropine Mesylate (Cogentin) 0.5 mg PO HS [facility] Last Admin: 05/04/18 21:20 Dose: 0.5 mg Diphenhydramine HCl (Benadryl) 50 mg IM Q6 PRN PRN Reason: Extrapyramidal S/S Unable PO Diphenhydramine HCl (Benadryl) 50 mg PO Q6 PRN PRN Reason: Extrapyramidal Symptoms Last Admin: 05/04/18 08:31 Dose: 50 mg Diphenhydramine HCl (Benadryl) 50 mg PO HS PRN PRN Reason: Sleep Fluvoxamine Maleate (Luvox) 100 mg PO HS [facility] Last Admin: 05/04/18 21:20 Dose: 100 mg Gabapentin (Neurontin) 100 mg PO TID [facility] Last Admin: 05/04/18 17:40 Dose: 100 mg Haloperidol Lactate (Haldol) 5 mg IM Q4 PRN PRN Reason: Agitation, Unable to Take PO Haloperidol Lactate (Haldol) 5 mg PO Q4 PRN PRN Reason: Agitation Lorazepam (Ativan) 2 mg IM Q6 PRN PRN Reason: Anxiety/Agitation,Unable PO Lorazepam (Ativan) 1 mg PO Q8 PRN PRN Reason: Anxiety/Agitation Last Admin: 05/04/18 09:56 Dose: 1 mg Magnesium Hydroxide (Milk Of Magnesia) 30 ml PO HS PRN PRN Reason: Constipation Oxcarbazepine (Trileptal) 300 mg PO TID [facility] Last Admin: 05/04/18 17:40 Dose: 300 mg Perphenazine (Perphenazine) 2 mg PO BID [facility] Last Admin: 05/04/18 17:40 Dose: 2 mg Perphenazine (Perphenazine) 4 mg PO HS [facility] Last Admin: 05/04/18 21:20 Dose: 4 mg Trazodone HCl (Desyrel) 50 mg PO HS [facility] Last Admin: 05/04/18 21:20 Dose: 50 mg Physical Exam - Constitutional Appears: Well, No Acute Distress - Head Exam Head Exam: ATRAUMATIC, NORMAL INSPECTION, NORMOCEPHALIC - Eye Exam Eye Exam: EOMI, Normal appearance, PERRL Pupil Exam: NORMAL ACCOMODATION, PERRL - ENT Exam ENT Exam: Mucous Membranes Moist, Normal Exam - Neck Exam Neck exam: Positive for: Normal Inspection - Respiratory Exam Respiratory Exam: Clear to Auscultation Bilateral, NORMAL BREATHING PATTERN - Cardiovascular Exam Cardiovascular Exam: Diastolic murmur, REGULAR RHYTHM, +S1, +S2, Systolic Murmur - GI/Abdominal Exam GI & Abdominal Exam: Normal Bowel Sounds, Soft. absent: Tenderness - Extremities Exam Extremities exam: Positive for: normal inspection - Back Exam Back exam: NORMAL INSPECTION - Neurological Exam Neurological exam: Alert, CN II-XII Intact, Normal Gait, Oriented x3, Reflexes Normal - Psychiatric Exam Psychiatric exam: Normal Affect, Normal Mood - Skin Skin Exam: Dry, Intact, Normal Color, Warm Results - Vital Signs Recent Vital Signs: Last Vital Signs Temp 96.9 F L 05/04/18 17:00 Pulse 77 05/04/18 17:00 Resp 20 05/04/18 17:00 BP 133/78 05/04/18 17:00 Pulse Ox 99 05/04/18 00:28 - Labs Result Diagrams: 05/04/18 08:00 05/04/18 08:00 Labs: Laboratory Results - last 24 hr 05/04/18 05/04/18 05/04/18 08:00 08:00 08:00 WBC RBC Hgb Hct MCV MCH MCHC RDW Plt Count MPV Neut % (Auto) Lymph % (Auto) [place] % (Auto) Eos % (Auto) Baso % (Auto) Neut # (Auto) Lymph # (Auto) [place] # (Auto) Eos # (Auto) Baso # (Auto) Sodium 140 Potassium 4.4 Chloride 100 Carbon Dioxide 31 H Anion Gap 13 BUN 11 Creatinine 0.8 Est GFR ( Amer) > 60 Est GFR (Non-Af Amer) > 60 Random Glucose 108 Hemoglobin A1c 5.5 Calcium 10.0 Triglycerides 44 D Cholesterol 152 LDL Cholesterol Direct 68 HDL Cholesterol 77 H Thyroxine (T4) 8.27 TSH 3rd Generation 3.60 RPR Nonreactive 05/04/18 08:00 WBC 7.3 RBC 5.80 Hgb 16.5 Hct 50.5 MCV 87.1 D MCH 28.5 MCHC 32.8 L RDW 14.3 Plt Count 170 MPV 8.7 Neut % (Auto) 71.3 Lymph % (Auto) 17.9 L [place] % (Auto) 10.2 H Eos % (Auto) 0.2 Baso % (Auto) 0.4 Neut # (Auto) 5.2 Lymph # (Auto) 1.3 [place] # (Auto) 0.7 Eos # (Auto) 0.0 Baso # (Auto) 0.0 Sodium Potassium Chloride Carbon Dioxide Anion Gap BUN Creatinine Est GFR ( Amer) Est GFR (Non-Af Amer) Random Glucose Hemoglobin A1c Calcium Triglycerides Cholesterol LDL Cholesterol Direct HDL Cholesterol Thyroxine (T4) TSH 3rd Generation RPR - EKG Data EKG Interpreted by: Myself EKG shows normal: Sinus rhythm Rate: Tachycardia - Imaging and Cardiology Chest x-ray Status: Report reviewed by me Additional comment: No Acute finding Assessment & Plan (1) Murmur, cardiac Status: Chronic Priority: High (2) Schizoaffective disorder Status: Acute Priority: Low (3) H/O pulmonic valve repair Status: Acute Priority: Low (4) Tachycardia Status: Acute Priority: Low - Assessment and Plan (Free Text) Plan: Continue Home Medications RX as per Psych recommendation
[2018-05-05] MEDS: Haloperidol Lactate 2 mg/ml Liquid PO PRN (03:57)
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
[2018-05-06] MEDS: Haloperidol Lactate 2 mg/ml Liquid PO PRN (00:57)
--- NOTE | 2018-05-06 14:17 | PCM.PYCHPN ---
Psychiatric Progress Note - Psychiatric Progress Note Patient seen today, length of contact: pt evaluated discussed with team zheng reviewed Patient Chief Complaint: I got overwhelemd and I stopped my medicine Problems Identified/Issues Discussed: pt evaluated with treatment team, speech less pressured and more goal directed, thought process less disorganized continues to have ideas of reference pt presenting with depressed mood and affect,when discussing stressors leading to his admission, including the illness of his friend , pt continues to hear voices putting him down and making fun of him, pt denied command hallucinations, denied active thoughts of self harm on the unit encouraged to atend groups Medical Problems: multiple inpatient hospitalizations DSM 5 Symptoms Update: schizoaffective disorder obsessive compulsive disorder Medication Change: No (increase perphenazine) Medical Record Reviewed: Yes Mental Status Examination - Cognitive Function Orientation: Person, Place, Situation Attention: WNL Concentration: Poor Association: Loose Fund of Knowledge: Poor Decription of patient's judgement and insights: partial insight , fair judgment - Mood Mood: Depressed, Anxious - Affect Affect: Constricted, Depressed - Formal Thought Process Formal Thought Process: Hallucinations, Delusions, Paranoia - Suicidal Ideation Suicidal Ideation: No - Homicidal Ideation Homicidal Ideation: No Goal/Treatment Plan - Goal/Treatment Plan Need for Continued Stay: Severe depression anxiety, Discharge may exacerbated symptoms Progress Toward Problem(s) and Goals/Treatment Plan: perphenazine 2mg bid and 4mg qhs, cogentin 1mg qhs luvox 100mg qhs neurontin 100mg tid CBT group and supportive therapy
--- NOTE | 2018-05-06 22:24 | CP.PCM.PN ---
Subjective - Date & Time of Evaluation Date of Evaluation: 05/05/18 Time of Evaluation: 07:20 Objective - Vital Signs/Intake and Output Vital Signs (last 24 hours): Temp Pulse Resp BP Pulse Ox 97.7 F 75 18 110/70 99 05/06/18 17:00 05/06/18 17:30 05/06/18 17:00 05/06/18 17:30 05/04/18 00:28 - Medications Medications: Current Medications Acetaminophen (Tylenol 325mg Tab) 650 mg PO Q4 PRN PRN Reason: pain 1-7 Al Hydrox/Mg Hydrox/Simethicone (Maalox Plus 30 Ml) 30 ml PO Q4 PRN PRN Reason: Dyspepsia Amlodipine Besylate (Norvasc) 2.5 mg PO BID [facility] Last Admin: 05/06/18 17:30 Dose: 2.5 mg Benztropine Mesylate (Cogentin) 0.5 mg PO HS [facility] Last Admin: 05/06/18 21:08 Dose: 0.5 mg Diphenhydramine HCl (Benadryl) 50 mg IM Q6 PRN PRN Reason: Extrapyramidal S/S Unable PO Diphenhydramine HCl (Benadryl) 50 mg PO Q6 PRN PRN Reason: Extrapyramidal Symptoms Last Admin: 05/04/18 08:31 Dose: 50 mg Diphenhydramine HCl (Benadryl) 50 mg PO HS PRN PRN Reason: Sleep Last Admin: 05/06/18 00:57 Dose: 50 mg Fluvoxamine Maleate (Luvox) 100 mg PO HS [facility] Last Admin: 05/06/18 21:08 Dose: 100 mg Gabapentin (Neurontin) 100 mg PO TID [facility] Last Admin: 05/06/18 17:30 Dose: 100 mg Haloperidol Lactate (Haldol) 5 mg IM Q4 PRN PRN Reason: Agitation, Unable to Take PO Haloperidol Lactate (Haldol) 5 mg PO Q4 PRN PRN Reason: Agitation Last Admin: 05/06/18 00:57 Dose: 5 mg Lorazepam (Ativan) 2 mg IM Q6 PRN PRN Reason: Anxiety/Agitation,Unable PO Lorazepam (Ativan) 1 mg PO Q8 PRN PRN Reason: Anxiety/Agitation Last Admin: 05/06/18 00:57 Dose: 1 mg Magnesium Hydroxide (Milk Of Magnesia) 30 ml PO HS PRN PRN Reason: Constipation Oxcarbazepine (Trileptal) 300 mg PO TID [facility] Last Admin: 05/06/18 17:30 Dose: 300 mg Perphenazine (Perphenazine) 2 mg PO BID [facility] Last Admin: 05/06/18 17:29 Dose: 2 mg Perphenazine (Perphenazine) 4 mg PO [facility] Last Admin: 05/06/18 21:08 Dose: 4 mg Trazodone HCl (Desyrel) 50 mg PO [facility] Last Admin: 05/06/18 21:08 Dose: 50 mg - Labs Labs: 05/04/18 08:00 05/04/18 08:00 Assessment and Plan (1) Murmur, cardiac Status: Chronic (2) Schizoaffective disorder Status: Acute (3) H/O pulmonic valve repair Status: Acute (4) Tachycardia Status: Acute
--- NOTE | 2018-05-06 22:25 | CP.PCM.PN ---
Subjective - Date & Time of Evaluation Date of Evaluation: 05/06/18 Time of Evaluation: 12:30 Objective - Vital Signs/Intake and Output Vital Signs (last 24 hours): Temp Pulse Resp BP Pulse Ox 97.7 F 75 18 110/70 99 05/06/18 17:00 05/06/18 17:30 05/06/18 17:00 05/06/18 17:30 05/04/18 00:28 - Medications Medications: Current Medications Acetaminophen (Tylenol 325mg Tab) 650 mg PO Q4 PRN PRN Reason: pain 1-7 Al Hydrox/Mg Hydrox/Simethicone (Maalox Plus 30 Ml) 30 ml PO Q4 PRN PRN Reason: Dyspepsia Amlodipine Besylate (Norvasc) 2.5 mg PO BID [facility] Last Admin: 05/06/18 17:30 Dose: 2.5 mg Benztropine Mesylate (Cogentin) 0.5 mg PO HS [facility] Last Admin: 05/06/18 21:08 Dose: 0.5 mg Diphenhydramine HCl (Benadryl) 50 mg IM Q6 PRN PRN Reason: Extrapyramidal S/S Unable PO Diphenhydramine HCl (Benadryl) 50 mg PO Q6 PRN PRN Reason: Extrapyramidal Symptoms Last Admin: 05/04/18 08:31 Dose: 50 mg Diphenhydramine HCl (Benadryl) 50 mg PO HS PRN PRN Reason: Sleep Last Admin: 05/06/18 00:57 Dose: 50 mg Fluvoxamine Maleate (Luvox) 100 mg PO HS [facility] Last Admin: 05/06/18 21:08 Dose: 100 mg Gabapentin (Neurontin) 100 mg PO TID [facility] Last Admin: 05/06/18 17:30 Dose: 100 mg Haloperidol Lactate (Haldol) 5 mg IM Q4 PRN PRN Reason: Agitation, Unable to Take PO Haloperidol Lactate (Haldol) 5 mg PO Q4 PRN PRN Reason: Agitation Last Admin: 05/06/18 00:57 Dose: 5 mg Lorazepam (Ativan) 2 mg IM Q6 PRN PRN Reason: Anxiety/Agitation,Unable PO Lorazepam (Ativan) 1 mg PO Q8 PRN PRN Reason: Anxiety/Agitation Last Admin: 05/06/18 00:57 Dose: 1 mg Magnesium Hydroxide (Milk Of Magnesia) 30 ml PO HS PRN PRN Reason: Constipation Oxcarbazepine (Trileptal) 300 mg PO TID [facility] Last Admin: 05/06/18 17:30 Dose: 300 mg Perphenazine (Perphenazine) 2 mg PO BID [facility] Last Admin: 05/06/18 17:29 Dose: 2 mg Perphenazine (Perphenazine) 4 mg PO [facility] Last Admin: 05/06/18 21:08 Dose: 4 mg Trazodone HCl (Desyrel) 50 mg PO [facility] Last Admin: 05/06/18 21:08 Dose: 50 mg - Labs Labs: 05/04/18 08:00 05/04/18 08:00 Assessment and Plan (1) Murmur, cardiac Status: Chronic (2) Schizoaffective disorder Status: Acute (3) H/O pulmonic valve repair Status: Acute (4) Tachycardia Status: Acute
--- NOTE | 2018-05-07 15:28 | PCM.PYCHPN ---
Psychiatric Progress Note - Psychiatric Progress Note Patient seen today, length of contact: pt evaluated discussed with team chrar reviewed Patient Chief Complaint: I feel very anxious Problems Identified/Issues Discussed: pt evaluated , reported improved sleep, partial clearing of the auditory hallucinations, pt continues to feel anxious, discussed increasing dose of neurontin, CBT provided, pt attending groups, agreed to start partial program on discharge , denied command hallucinations, denied suicidal or homicidal ideation Medical Problems: multiple inpatient hospitalizations Medication Change: No (increase neurontin) Medical Record Reviewed: Yes Mental Status Examination - Cognitive Function Orientation: Person, Place, Situation Attention: WNL Concentration: Poor Association: Loose Fund of Knowledge: Poor Decription of patient's judgement and insights: partial insight , fair judgment - Mood Mood: Depressed, Anxious - Affect Affect: Constricted, Depressed - Formal Thought Process Formal Thought Process: Hallucinations, Delusions, Paranoia - Suicidal Ideation Suicidal Ideation: No - Homicidal Ideation Homicidal Ideation: No Goal/Treatment Plan - Goal/Treatment Plan Need for Continued Stay: Severe depression anxiety, Discharge may exacerbated symptoms Progress Toward Problem(s) and Goals/Treatment Plan: perphenazine 2mg bid and 4mg qhs, cogentin 1mg qhs luvox 100mg qhs increase neurontin 200mg tid CBT group and supportive therapy
--- NOTE | 2018-05-08 10:19 | CP.PCM.PN ---
Subjective - Date & Time of Evaluation Date of Evaluation: 05/07/18 Objective - Vital Signs/Intake and Output Vital Signs (last 24 hours): Temp Pulse Resp BP Pulse Ox 97.7 F 93 H 18 116/75 99 05/07/18 17:00 05/08/18 08:54 05/07/18 17:00 05/08/18 08:54 05/04/18 00:28 - Medications Medications: Current Medications Acetaminophen (Tylenol 325mg Tab) 650 mg PO Q4 PRN PRN Reason: pain 1-7 Al Hydrox/Mg Hydrox/Simethicone (Maalox Plus 30 Ml) 30 ml PO Q4 PRN PRN Reason: Dyspepsia Amlodipine Besylate (Norvasc) 2.5 mg PO BID [facility] Last Admin: 05/08/18 08:54 Dose: 2.5 mg Benztropine Mesylate (Cogentin) 0.5 mg PO HS [facility] Last Admin: 05/07/18 21:53 Dose: 0.5 mg Diphenhydramine HCl (Benadryl) 50 mg IM Q6 PRN PRN Reason: Extrapyramidal S/S Unable PO Diphenhydramine HCl (Benadryl) 50 mg PO Q6 PRN PRN Reason: Extrapyramidal Symptoms Last Admin: 05/04/18 08:31 Dose: 50 mg Diphenhydramine HCl (Benadryl) 50 mg PO HS PRN PRN Reason: Sleep Last Admin: 05/06/18 00:57 Dose: 50 mg Fluvoxamine Maleate (Luvox) 100 mg PO HS [facility] Last Admin: 05/07/18 21:53 Dose: 100 mg Gabapentin (Neurontin) 200 mg PO TID [facility] Last Admin: 05/08/18 08:44 Dose: 200 mg Haloperidol (Haldol) 5 mg PO Q4 PRN PRN Reason: Agitation Haloperidol Lactate (Haldol) 5 mg IM Q4 PRN PRN Reason: Agitation, Unable to Take PO Lorazepam (Ativan) 2 mg IM Q6 PRN PRN Reason: Anxiety/Agitation,Unable PO Lorazepam (Ativan) 1 mg PO Q8 PRN PRN Reason: Anxiety/Agitation Last Admin: 05/07/18 02:09 Dose: 1 mg Magnesium Hydroxide (Milk Of Magnesia) 30 ml PO HS PRN PRN Reason: Constipation Oxcarbazepine (Trileptal) 300 mg PO TID [facility] Last Admin: 05/08/18 08:56 Dose: 300 mg Perphenazine (Perphenazine) 2 mg PO BID [facility] Last Admin: 05/08/18 08:44 Dose: 2 mg Perphenazine (Perphenazine) 4 mg PO [facility] Last Admin: 05/07/18 21:53 Dose: Not Given Trazodone HCl (Desyrel) 50 mg PO [facility] Last Admin: 05/07/18 21:53 Dose: Not Given - Labs Labs: 05/04/18 08:00 05/04/18 08:00 Assessment and Plan (1) Murmur, cardiac Status: Chronic (2) Schizoaffective disorder Status: Acute (3) H/O pulmonic valve repair Status: Acute (4) Tachycardia Status: Acute
--- NOTE | 2018-05-08 16:20 | PCM.PYCHPN ---
Psychiatric Progress Note - Psychiatric Progress Note Patient seen today, length of contact: pt evaluated discussed with team chrar reviewed Patient Chief Complaint: I know that there are people here who needs to be in prison Problems Identified/Issues Discussed: pt evaluated with treatment team, presenting with change in mental status , pt floridly psychotic, with paranoid delusions towards other patients on the unit, pt internally preoccupied, responding to internal stimuli , reported having auditory hallucinations putting him down, pt thought process tangential, with loose association at times pt has refused medications yesterday and has been noted to avoid taking his medications, discussed with pt importance of compliance with medications also discussed the changing of perphenazine to haldol with goal of starting haldol decanoate to ensure compliance ,pt denied command hallucinations, denied suicidal or homicidal ideation Medical Problems: multiple inpatient hospitalizations DSM 5 Symptoms Update: schizoaffective disorder bipolar type Medication Change: Yes (start haldol) Medical Record Reviewed: Yes Mental Status Examination - Cognitive Function Orientation: Person, Place, Situation Attention: WNL Concentration: Poor Association: Loose Fund of Knowledge: Poor Decription of patient's judgement and insights: partial insight , fair judgment - Mood Mood: Depressed, Anxious - Affect Affect: Constricted, Depressed - Formal Thought Process Formal Thought Process: Hallucinations, Delusions, Paranoia - Suicidal Ideation Suicidal Ideation: No - Homicidal Ideation Homicidal Ideation: No Goal/Treatment Plan - Goal/Treatment Plan Need for Continued Stay: Severe depression anxiety, Discharge may exacerbated symptoms Progress Toward Problem(s) and Goals/Treatment Plan: discontinue perphenazine start haldol 5mg tid with cogentin 1mg tid luvox 100mg qhs neurontin 100mg tid monitor pt for psychopharmacological effects and side effect profile CBT group and supportive therapy
--- NOTE | 2018-05-08 23:03 | CP.PCM.PN ---
Subjective - Date & Time of Evaluation Date of Evaluation: 05/08/18 Objective - Vital Signs/Intake and Output Vital Signs (last 24 hours): Temp Pulse Resp BP Pulse Ox 97.7 F 89 18 120/78 99 05/07/18 17:00 05/08/18 21:44 05/07/18 17:00 05/08/18 21:44 05/04/18 00:28 - Medications Medications: Current Medications Acetaminophen (Tylenol 325mg Tab) 650 mg PO Q4 PRN PRN Reason: pain 1-7 Al Hydrox/Mg Hydrox/Simethicone (Maalox Plus 30 Ml) 30 ml PO Q4 PRN PRN Reason: Dyspepsia Amlodipine Besylate (Norvasc) 2.5 mg PO BID [facility] Last Admin: 05/08/18 21:44 Dose: 2.5 mg Benztropine Mesylate (Cogentin) 1 mg PO BID [facility] Last Admin: 05/08/18 16:06 Dose: 1 mg Benztropine Mesylate (Cogentin) 1 mg PO HS [facility] Last Admin: 05/08/18 21:44 Dose: 1 mg Diphenhydramine HCl (Benadryl) 50 mg IM Q6 PRN PRN Reason: Extrapyramidal S/S Unable PO Diphenhydramine HCl (Benadryl) 50 mg PO Q6 PRN PRN Reason: Extrapyramidal Symptoms Last Admin: 05/08/18 11:26 Dose: 50 mg Diphenhydramine HCl (Benadryl) 50 mg PO HS PRN PRN Reason: Sleep Last Admin: 05/06/18 00:57 Dose: 50 mg Fluvoxamine Maleate (Luvox) 100 mg PO [facility] Last Admin: 05/08/18 21:46 Dose: 100 mg Gabapentin (Neurontin) 100 mg PO TID [facility] Haloperidol (Haldol) 5 mg PO Q4 PRN PRN Reason: Agitation Last Admin: 05/08/18 11:26 Dose: 5 mg Haloperidol (Haldol) 5 mg PO BID [facility] Last Admin: 05/08/18 16:06 Dose: 5 mg Haloperidol (Haldol) 5 mg PO [facility] Last Admin: 05/08/18 22:46 Dose: Not Given Haloperidol Lactate (Haldol) 5 mg IM Q4 PRN PRN Reason: Agitation, Unable to Take PO Lorazepam (Ativan) 2 mg IM Q6 PRN PRN Reason: Anxiety/Agitation,Unable PO Lorazepam (Ativan) 2 mg PO Q6 PRN PRN Reason: Anxiety Magnesium Hydroxide (Milk Of Magnesia) 30 ml PO HS PRN PRN Reason: Constipation Oxcarbazepine (Trileptal) 300 mg PO TID [facility] Last Admin: 05/08/18 22:46 Dose: Not Given Trazodone HCl (Desyrel) 50 mg PO HS [facility] Last Admin: 05/08/18 22:46 Dose: Not Given - Labs Labs: 05/04/18 08:00 05/04/18 08:00 Assessment and Plan (1) Murmur, cardiac Status: Chronic (2) Schizoaffective disorder Status: Acute (3) H/O pulmonic valve repair Status: Acute (4) Tachycardia Status: Acute
--- NOTE | 2018-05-09 15:02 | PCM.PYCHPN ---
Psychiatric Progress Note - Psychiatric Progress Note Patient seen today, length of contact: pt evaluated discussed with team chrar reviewed Patient Chief Complaint: pt has remained internally preoccupied and paranoid and minimises his psychosis.no side effects to haldol . Medication Change: Yes (start haldol) Medical Record Reviewed: Yes Mental Status Examination - Cognitive Function Orientation: Person, Place, Situation Attention: WNL Concentration: Poor Association: Loose Fund of Knowledge: Poor - Mood Mood: Depressed, Anxious - Affect Affect: Constricted, Depressed - Formal Thought Process Formal Thought Process: Hallucinations, Delusions, Paranoia - Suicidal Ideation Suicidal Ideation: No - Homicidal Ideation Homicidal Ideation: No Goal/Treatment Plan - Goal/Treatment Plan Need for Continued Stay: Severe depression anxiety, Discharge may exacerbated symptoms
--- NOTE | 2018-05-10 00:13 | CP.PCM.PN ---
Subjective - Date & Time of Evaluation Date of Evaluation: 05/09/18 Objective - Vital Signs/Intake and Output Vital Signs (last 24 hours): Temp Pulse Resp BP Pulse Ox 97.9 F 89 18 119/78 99 05/09/18 16:44 05/09/18 18:48 05/09/18 16:44 05/09/18 18:48 05/04/18 00:28 - Medications Medications: Current Medications Acetaminophen (Tylenol 325mg Tab) 650 mg PO Q4 PRN PRN Reason: pain 1-7 Al Hydrox/Mg Hydrox/Simethicone (Maalox Plus 30 Ml) 30 ml PO Q4 PRN PRN Reason: Dyspepsia Amlodipine Besylate (Norvasc) 2.5 mg PO BID [facility] Last Admin: 05/09/18 18:48 Dose: 2.5 mg Benztropine Mesylate (Cogentin) 1 mg PO BID [facility] Last Admin: 05/09/18 18:47 Dose: 1 mg Benztropine Mesylate (Cogentin) 1 mg PO HS [facility] Last Admin: 05/09/18 21:08 Dose: 1 mg Diphenhydramine HCl (Benadryl) 50 mg IM Q6 PRN PRN Reason: Extrapyramidal S/S Unable PO Diphenhydramine HCl (Benadryl) 50 mg PO Q6 PRN PRN Reason: Extrapyramidal Symptoms Last Admin: 05/08/18 11:26 Dose: 50 mg Diphenhydramine HCl (Benadryl) 50 mg PO HS PRN PRN Reason: Sleep Last Admin: 05/06/18 00:57 Dose: 50 mg Fluvoxamine Maleate (Luvox) 100 mg PO HS [facility] Last Admin: 05/09/18 21:08 Dose: 100 mg Gabapentin (Neurontin) 100 mg PO TID [facility] Last Admin: 05/09/18 18:46 Dose: 100 mg Haloperidol (Haldol) 5 mg PO Q4 PRN PRN Reason: Agitation Last Admin: 05/09/18 00:34 Dose: 5 mg Haloperidol (Haldol) 5 mg PO BID [facility] Last Admin: 05/09/18 18:53 Dose: Not Given Haloperidol (Haldol) 5 mg PO HS [facility] Last Admin: 05/09/18 21:08 Dose: 5 mg Haloperidol Lactate (Haldol) 5 mg IM Q4 PRN PRN Reason: Agitation, Unable to Take PO Lorazepam (Ativan) 2 mg IM Q6 PRN PRN Reason: Anxiety/Agitation,Unable PO Lorazepam (Ativan) 2 mg PO Q6 PRN PRN Reason: Anxiety Last Admin: 05/09/18 00:33 Dose: 2 mg Magnesium Hydroxide (Milk Of Magnesia) 30 ml PO HS PRN PRN Reason: Constipation Oxcarbazepine (Trileptal) 300 mg PO TID [facility] Last Admin: 05/09/18 18:46 Dose: 300 mg Trazodone HCl (Desyrel) 50 mg PO HS [facility] Last Admin: 05/09/18 21:08 Dose: 50 mg - Labs Labs: 05/04/18 08:00 05/04/18 08:00 Assessment and Plan (1) Murmur, cardiac Status: Chronic (2) Schizoaffective disorder Status: Acute (3) H/O pulmonic valve repair Status: Acute (4) Tachycardia Status: Acute
--- NOTE | 2018-05-10 12:31 | PCM.PYCHPN ---
Psychiatric Progress Note - Psychiatric Progress Note Patient seen today, length of contact: pt evaluated discussed with team chrar reviewed Patient Chief Complaint: pt has been less depressed and less anxious with decrease in the paranoea but has emained internally preoccupied and and minimises his psychosis.no side effects to haldol . Medication Change: Yes (start haldol) Medical Record Reviewed: Yes Mental Status Examination - Cognitive Function Orientation: Person, Place, Situation Attention: WNL Concentration: Poor Association: Loose Fund of Knowledge: Poor - Mood Mood: Depressed, Anxious - Affect Affect: Constricted, Depressed - Formal Thought Process Formal Thought Process: Hallucinations, Delusions, Paranoia - Suicidal Ideation Suicidal Ideation: No - Homicidal Ideation Homicidal Ideation: No Goal/Treatment Plan - Goal/Treatment Plan Need for Continued Stay: Severe depression anxiety, Discharge may exacerbated symptoms Progress Toward Problem(s) and Goals/Treatment Plan: Will continue to titrate haldol to 5 mg bid and 10 mg hs and titrate luvox as needed and engage pt in therapy. pt will be switched to haldol decoanate gradually.for better compliance .. D/c plans as per dr ariza.
--- NOTE | 2018-05-11 17:46 | PCM.PYCHPN ---
Psychiatric Progress Note - Psychiatric Progress Note Patient seen today, length of contact: pt evaluated discussed with team chart reviewed Patient Chief Complaint: depression and anxiety is improving not hearing voices is not worried that people are trying to harm him, verbalizes willingness to follow up with partial hospital program upon discharge, staff report pt is rx adherent denies s/e medications, is seen about milieu Problems Identified/Issues Discussed: alteration in mood, cognition Medical Problems: per chart Diagnostic Results: per psychiatry per medicine per nursing per social work per recreational therapy Medication Change: Yes (start haldol) Medical Record Reviewed: Yes Consults ordered or reviewed: pt being seen by dr dickerson Mental Status Examination - Cognitive Function Orientation: Person, Place, Situation Attention: WNL Concentration: WNL Association: WNL Fund of Knowledge: WN Decription of patient's judgement and insights: impaired - Mood Mood: Depressed, Anxious - Affect Affect: Constricted, Depressed Additional comments: less depressed as compaired to admission - Formal Thought Process Psychotic Thoughts and Behaviors: less paranoia - Suicidal Ideation Suicidal Ideation: No - Homicidal Ideation Homicidal Ideation: No Goal/Treatment Plan - Goal/Treatment Plan Need for Continued Stay: Severe depression anxiety, Discharge may exacerbated symptoms Progress Toward Problem(s) and Goals/Treatment Plan: inpt milieu adjust meds per status vital signs and clinical observation per protocol and per clinical status discharge planning in progress Estimated Date of D/C: 05/14/18 - Smoking Cessation Smoking Cessation Initiated: No Reason for not providing: pt defers
--- NOTE | 2018-05-12 01:16 | CP.PCM.PN ---
Subjective - Date & Time of Evaluation Date of Evaluation: 05/11/18 Time of Evaluation: 14:10 Objective - Vital Signs/Intake and Output Vital Signs (last 24 hours): Temp Pulse Resp BP Pulse Ox 97.3 F L 76 18 114/63 99 05/11/18 17:00 05/11/18 17:00 05/11/18 17:00 05/11/18 18:15 05/04/18 00:28 - Medications Medications: Current Medications Acetaminophen (Tylenol 325mg Tab) 650 mg PO Q4 PRN PRN Reason: pain 1-7 Al Hydrox/Mg Hydrox/Simethicone (Maalox Plus 30 Ml) 30 ml PO Q4 PRN PRN Reason: Dyspepsia Amlodipine Besylate (Norvasc) 2.5 mg PO BID [facility] Last Admin: 05/11/18 18:15 Dose: Not Given Benztropine Mesylate (Cogentin) 1 mg PO BID [facility] Last Admin: 05/11/18 16:44 Dose: 1 mg Benztropine Mesylate (Cogentin) 1 mg PO HS [facility] Last Admin: 05/11/18 21:30 Dose: 1 mg Diphenhydramine HCl (Benadryl) 50 mg IM Q6 PRN PRN Reason: Extrapyramidal S/S Unable PO Diphenhydramine HCl (Benadryl) 50 mg PO Q6 PRN PRN Reason: Extrapyramidal Symptoms Last Admin: 05/08/18 11:26 Dose: 50 mg Diphenhydramine HCl (Benadryl) 50 mg PO HS PRN PRN Reason: Sleep Last Admin: 05/06/18 00:57 Dose: 50 mg Fluvoxamine Maleate (Luvox) 100 mg PO HS [facility] Last Admin: 05/11/18 21:30 Dose: 100 mg Gabapentin (Neurontin) 100 mg PO TID [facility] Last Admin: 05/11/18 16:44 Dose: 100 mg Haloperidol (Haldol) 5 mg PO Q4 PRN PRN Reason: Agitation Last Admin: 05/09/18 00:34 Dose: 5 mg Haloperidol (Haldol) 5 mg PO BID [facility] Last Admin: 05/11/18 17:06 Dose: 5 mg Haloperidol (Haldol) 10 mg PO [facility] Last Admin: 05/11/18 21:31 Dose: 10 mg Haloperidol Lactate (Haldol) 5 mg IM Q4 PRN PRN Reason: Agitation, Unable to Take PO Magnesium Hydroxide (Milk Of Magnesia) 30 ml PO HS PRN PRN Reason: Constipation Oxcarbazepine (Trileptal) 300 mg PO TID [facility] Last Admin: 05/11/18 16:43 Dose: 300 mg Trazodone HCl (Desyrel) 50 mg PO HS [facility] Last Admin: 05/11/18 21:30 Dose: 50 mg - Labs Labs: 05/04/18 08:00 05/04/18 08:00 Assessment and Plan (1) Murmur, cardiac Status: Chronic (2) Schizoaffective disorder Status: Acute (3) H/O pulmonic valve repair Status: Acute (4) Tachycardia Status: Acute
--- NOTE | 2018-05-12 12:51 | PCM.PYCHPN ---
Psychiatric Progress Note - Psychiatric Progress Note Patient seen today, length of contact: pt evaluated discussed with team chart reviewed Patient Chief Complaint: I have a hard time sleeping and I feel down Problems Identified/Issues Discussed: pt evaluated , presenting with depressed mood and affect, reported feeling uneasy and targeted by certain people on the unit, continues to have paranoid delusions, pt reported poor sleep with early and intermittent insomnia , partial clearing of the auditory hallucinations, denied command hallucinations, discussed with pt starting haldol decanoate for better compliance pt requested to discuss with mother before consent, also discussed increasing trazodone and luvox, medication education provided discussing importance of compliance denied suicidal or homicidal ideation, denied side effects of current medications Medical Problems: multiple inpatient hospitalizations Medication Change: Yes (increase luvox, start trazodone ) Medical Record Reviewed: Yes Mental Status Examination - Cognitive Function Orientation: Person, Place, Situation Attention: WNL Concentration: WNL Association: WNL Fund of Knowledge: WNL - Mood Mood: Depressed, Anxious - Affect Affect: Constricted, Depressed - Formal Thought Process Formal Thought Process: Hallucinations, Delusions, Paranoia - Suicidal Ideation Suicidal Ideation: No - Homicidal Ideation Homicidal Ideation: No Goal/Treatment Plan - Goal/Treatment Plan Need for Continued Stay: Severe depression anxiety, Discharge may exacerbated symptoms Progress Toward Problem(s) and Goals/Treatment Plan: start haldol 5mg bid and 10mg qhs with plan to start haldol decanoate increase luvox 150mg qhs neurontin 100mg tid increase trazodone 100mg qhs monitor pt for psychopharmacological effects and side effect profile CBT group and supportive therapy Estimated Date of D/C: 05/14/18
--- NOTE | 2018-05-12 17:38 | CP.PCM.PN ---
Subjective - Date & Time of Evaluation Date of Evaluation: 05/12/18 Time of Evaluation: 14:20 Objective - Vital Signs/Intake and Output Vital Signs (last 24 hours): Temp Pulse Resp BP Pulse Ox 98.1 F 73 18 113/81 99 05/12/18 16:54 05/12/18 16:54 05/12/18 16:54 05/12/18 16:54 05/04/18 00:28 - Medications Medications: Current Medications Acetaminophen (Tylenol 325mg Tab) 650 mg PO Q4 PRN PRN Reason: pain 1-7 Al Hydrox/Mg Hydrox/Simethicone (Maalox Plus 30 Ml) 30 ml PO Q4 PRN PRN Reason: Dyspepsia Amlodipine Besylate (Norvasc) 2.5 mg PO BID [facility] Last Admin: 05/12/18 08:48 Dose: 2.5 mg Benztropine Mesylate (Cogentin) 1 mg PO BID [facility] Last Admin: 05/12/18 16:11 Dose: 1 mg Benztropine Mesylate (Cogentin) 1 mg PO HS [facility] Last Admin: 05/11/18 21:30 Dose: 1 mg Diphenhydramine HCl (Benadryl) 50 mg IM Q6 PRN PRN Reason: Extrapyramidal S/S Unable PO Diphenhydramine HCl (Benadryl) 50 mg PO Q6 PRN PRN Reason: Extrapyramidal Symptoms Last Admin: 05/08/18 11:26 Dose: 50 mg Diphenhydramine HCl (Benadryl) 50 mg PO HS PRN PRN Reason: Sleep Last Admin: 05/06/18 00:57 Dose: 50 mg Fluvoxamine Maleate (Luvox) 150 mg PO [facility] Gabapentin (Neurontin) 100 mg PO TID [facility] Last Admin: 05/12/18 16:11 Dose: 100 mg Haloperidol (Haldol) 5 mg PO Q4 PRN PRN Reason: Agitation Last Admin: 05/09/18 00:34 Dose: 5 mg Haloperidol (Haldol) 5 mg PO BID [facility] Last Admin: 05/12/18 16:11 Dose: 5 mg Haloperidol (Haldol) 10 mg PO HS [facility] Last Admin: 05/11/18 21:31 Dose: 10 mg Haloperidol Lactate (Haldol) 5 mg IM Q4 PRN PRN Reason: Agitation, Unable to Take PO Magnesium Hydroxide (Milk Of Magnesia) 30 ml PO HS PRN PRN Reason: Constipation Oxcarbazepine (Trileptal) 300 mg PO TID [facility] Last Admin: 05/12/18 16:11 Dose: 300 mg Trazodone HCl (Desyrel) 100 mg PO HS [facility] - Labs Labs: 05/04/18 08:00 05/04/18 08:00 Assessment and Plan (1) Murmur, cardiac Status: Chronic (2) Schizoaffective disorder Status: Acute (3) H/O pulmonic valve repair Status: Acute (4) Tachycardia Status: Acute
--- NOTE | 2018-05-13 14:49 | PCM.PYCHPN ---
Psychiatric Progress Note - Psychiatric Progress Note Patient seen today, length of contact: pt evaluated discussed with team chart reviewed Patient Chief Complaint: I slept better yesterday Problems Identified/Issues Discussed: pt evaluated ,with treatment team, less anxious and less irritable continues to be paranoid, speech less disorganized , thought process more goal directed, rated his depression to be 4/10 and his auditory hallucinations to be 4/10, denied command hallucinations, no reported side effects of medications, agreed to be started on haldol injection, discussed obtaining cardiac clearance denied suicidal or homicidal ideation, denied side effects of current medications Medical Problems: multiple inpatient hospitalizations DSM 5 Symptoms Update: schizoaffective disorder depressed Medication Change: No Medical Record Reviewed: Yes Mental Status Examination - Cognitive Function Orientation: Person, Place, Situation Memory: Intact Attention: WNL Concentration: WNL Association: WNL Fund of Knowledge: WN Decription of patient's judgement and insights: partial insight, fair judgment - Mood Mood: Depressed, Anxious - Affect Affect: Constricted, Depressed - Speech Speech: Soft - Formal Thought Process Formal Thought Process: Hallucinations, Delusions, Paranoia - Suicidal Ideation Suicidal Ideation: No - Homicidal Ideation Homicidal Ideation: No Goal/Treatment Plan - Goal/Treatment Plan Need for Continued Stay: Severe depression anxiety, Discharge may exacerbated symptoms Progress Toward Problem(s) and Goals/Treatment Plan: t haldol 5mg bid and 10mg qhs with plan to start haldol decanoate after cardiology clearance luvox 150mg qhs neurontin 100mg tid trazodone 100mg qhs monitor pt for psychopharmacological effects and side effect profile CBT group and supportive therapy Estimated Date of D/C: 05/14/18
--- NOTE | 2018-05-13 21:31 | CP.PCM.PN ---
Subjective - Date & Time of Evaluation Date of Evaluation: 05/13/18 Objective - Vital Signs/Intake and Output Vital Signs (last 24 hours): Temp Pulse Resp BP Pulse Ox 97.9 F 70 18 138/73 99 05/13/18 16:46 05/13/18 16:46 05/13/18 16:46 05/13/18 16:46 05/04/18 00:28 - Medications Medications: Current Medications Acetaminophen (Tylenol 325mg Tab) 650 mg PO Q4 PRN PRN Reason: pain 1-7 Al Hydrox/Mg Hydrox/Simethicone (Maalox Plus 30 Ml) 30 ml PO Q4 PRN PRN Reason: Dyspepsia Amlodipine Besylate (Norvasc) 2.5 mg PO BID [facility] Last Admin: 05/13/18 08:40 Dose: 2.5 mg Benztropine Mesylate (Cogentin) 1 mg PO BID [facility] Last Admin: 05/13/18 17:12 Dose: 1 mg Benztropine Mesylate (Cogentin) 1 mg PO HS [facility] Last Admin: 05/13/18 21:05 Dose: 1 mg Diphenhydramine HCl (Benadryl) 50 mg IM Q6 PRN PRN Reason: Extrapyramidal S/S Unable PO Diphenhydramine HCl (Benadryl) 50 mg PO Q6 PRN PRN Reason: Extrapyramidal Symptoms Last Admin: 05/08/18 11:26 Dose: 50 mg Diphenhydramine HCl (Benadryl) 50 mg PO HS PRN PRN Reason: Sleep Last Admin: 05/06/18 00:57 Dose: 50 mg Fluvoxamine Maleate (Luvox) 150 mg PO HS [facility] Last Admin: 05/13/18 21:04 Dose: 150 mg Gabapentin (Neurontin) 100 mg PO TID [facility] Last Admin: 05/13/18 17:12 Dose: 100 mg Haloperidol (Haldol) 5 mg PO Q4 PRN PRN Reason: Agitation Last Admin: 05/09/18 00:34 Dose: 5 mg Haloperidol (Haldol) 5 mg PO BID [facility] Last Admin: 05/13/18 17:15 Dose: 5 mg Haloperidol (Haldol) 10 mg PO HS [facility] Last Admin: 05/13/18 21:04 Dose: 10 mg Haloperidol Lactate (Haldol) 5 mg IM Q4 PRN PRN Reason: Agitation, Unable to Take PO Magnesium Hydroxide (Milk Of Magnesia) 30 ml PO HS PRN PRN Reason: Constipation Oxcarbazepine (Trileptal) 300 mg PO TID [facility] Last Admin: 05/13/18 12:57 Dose: 300 mg Trazodone HCl (Desyrel) 100 mg PO HS [facility] Last Admin: 05/13/18 21:04 Dose: 100 mg - Labs Labs: 05/04/18 08:00 05/04/18 08:00 Assessment and Plan (1) Murmur, cardiac Status: Chronic (2) Schizoaffective disorder Status: Acute (3) H/O pulmonic valve repair Status: Acute (4) Tachycardia Status: Acute
--- NOTE | 2018-05-14 00:08 | CARD ---
APPROVED REPORT Date of service: 05/13/2018 EKG Measurement Heart [id number] <Conclusion> Normal sinus rhythm Possible Left atrial enlargement Right bundle branch block Possible Inferior infarct, age undetermined Abnormal ECG
--- NOTE | 2018-05-14 10:30 | CP.PCM.CON ---
History of Present Illness - History of Present Illness History of Present Illness: this 37-year-old man was hospitalized for management of schizophrenia with suicidal ideation. This consultation was requested requested for cardiovascular evaluation prior to initiation of additional psychotropic drugs. 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 He sees a mechanical integrity engineer regularly and was being treated with 2.5 mg of amlodipine taken every day. He reports excellent effort tolerance and can walk up to 10 blocks couple of times without any difficulty. He denies any history suggestive of congestive cardiac failure. Physical examination shows a young man who is quite alert awake coherent afebrile with a pulse rate of 80 bpm regular and a blood pressure of 100/74 mmHg in both arms. His pedal pulses were well felt. There were no carotid bruits. There was no pedal edema and his jugular venous pressure was not elevated. A scar of sternotomy was evident. The first and second heart sounds were distant but normal. An ejection systolic murmur was audible in the left second space in the parasternal area. There was no gallop rhythm. There were no rales. His electrocardiogram showed sinus rhythm with a pattern of right bundle branch block and evidence of Q waves in leads 23 and aVF. The corrected QT interval was 543 ms. His echocardiogram shows an enlarged right ventricle with quite dilated right atrium and the pulmonary artery systolic pressure in the range of 50 mmHg. There was a gradient at the pulmonary valve approximately 16 mmHg. His lab data was noted. Impression: status post corrected truncus arteriosus. A prolonged corrected QT interval. I will discuss this with patient's psychiatrist. . Past Patient History - Past Medical History & Family History Past Medical History?: Yes Past Family History: Reviewed and not pertinent - Past Social History Smoking Status: Former Smoker Alcohol: None Drugs: Denies - CARDIAC Hx Cardia Arrhythmia: Yes - PULMONARY Hx Tuberculosis: No - NEUROLOGICAL HX Cerebrovascular Accident: No Hx Seizures: No - HEENT Hx HEENT Problems: No - RENAL Hx Chronic Kidney Disease: No - ENDOCRINE/METABOLIC Hx Endocrine Disorders: No - HEMATOLOGICAL/ONCOLOGICAL Hx Cancer: No Hx Human Immunodeficiency Virus (HIV): No - INTEGUMENTARY Hx Dermatological Problems: No - MUSCULOSKELETAL/RHEUMATOLOGICAL Hx Musculoskeletal Disorders: No Hx Falls: No - GASTROINTESTINAL Hx Gastrointestinal Disorders: Yes Hx Gastroesophageal Reflux: Yes Other/Comment: Hx Intestinal Obstruction - GENITOURINARY/GYNECOLOGICAL Hx Genitourinary Disorders: No Hx Sexually Transmitted Disorders: No - PSYCHIATRIC Hx Depression: Yes Hx Schizophrenia: Yes 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, 2007) - SURGICAL HISTORY Hx Surgeries: Yes Hx Coronary Artery Bypass Graft: Yes Hx Herniorrhaphy: Yes Hx Pulmonary Surgery: Yes (Pulmonary Valve Replacement) - ANESTHESIA Hx Anesthesia: Yes Hx Anesthesia Reactions: No Hx Malignant Hyperthermia: No Meds Allergies/Adverse Reactions: Allergies Allergy/AdvReac Type Severity Reaction Status Date / Time Sulfa (Sulfonamide Allergy RASH Verified 04/13/18 18:33 Antibiotics) - Medications Medications: Current Medications Acetaminophen (Tylenol 325mg Tab) 650 mg PO Q4 PRN PRN Reason: pain 1-7 Al Hydrox/Mg Hydrox/Simethicone (Maalox Plus 30 Ml) 30 ml PO Q4 PRN PRN Reason: Dyspepsia Amlodipine Besylate (Norvasc) 2.5 mg PO BID [facility] Last Admin: 05/14/18 08:54 Dose: 2.5 mg Benztropine Mesylate (Cogentin) 1 mg PO BID [facility] Last Admin: 05/14/18 08:50 Dose: 1 mg Benztropine Mesylate (Cogentin) 1 mg PO HS [facility] Last Admin: 05/13/18 21:05 Dose: 1 mg Diphenhydramine HCl (Benadryl) 50 mg IM Q6 PRN PRN Reason: Extrapyramidal S/S Unable PO Diphenhydramine HCl (Benadryl) 50 mg PO Q6 PRN PRN Reason: Extrapyramidal Symptoms Last Admin: 05/08/18 11:26 Dose: 50 mg Diphenhydramine HCl (Benadryl) 50 mg PO HS PRN PRN Reason: Sleep Last Admin: 05/06/18 00:57 Dose: 50 mg Fluvoxamine Maleate (Luvox) 150 mg PO HS [facility] Last Admin: 05/13/18 21:04 Dose: 150 mg Gabapentin (Neurontin) 100 mg PO TID [facility] Last Admin: 05/14/18 08:49 Dose: 100 mg Haloperidol (Haldol) 5 mg PO Q4 PRN PRN Reason: Agitation Last Admin: 05/09/18 00:34 Dose: 5 mg Haloperidol (Haldol) 5 mg PO BID [facility] Last Admin: 05/14/18 08:51 Dose: 5 mg Haloperidol (Haldol) [address] [facility] Last Admin: 05/13/18 21:04 Dose: 10 mg Haloperidol Lactate (Haldol) 5 mg IM Q4 PRN PRN Reason: Agitation, Unable to Take PO Magnesium Hydroxide (Milk Of Magnesia) 30 ml PO HS PRN PRN Reason: Constipation Oxcarbazepine (Trileptal) 300 mg PO TID [facility] Last Admin: 05/14/18 08:55 Dose: 300 mg Trazodone HCl (Desyrel) [address] [facility] Last Admin: 05/13/18 21:04 Dose: 100 mg Results - Vital Signs Recent Vital Signs: Last Vital Signs Temp 98.2 F 05/14/18 09:08 Pulse 64 05/14/18 09:08 Resp 16 05/14/18 09:08 BP 91/56 L 05/14/18 09:08 Pulse Ox 99 05/04/18 00:28 - Labs Result Diagrams: 05/04/18 08:00 05/04/18 08:00
--- NOTE | 2018-05-14 15:25 | CARD ---
APPROVED REPORT Date of service: 05/14/2018 EXAM: Two-dimensional and M-mode echocardiogram with Doppler and color Doppler. Other Information Quality : GoodRhythm : NSR INDICATION Abnormal EKG/Arrhythmia Surgery/Intervention Previous Pulmonic valve surgery at age 8years. 2D DIMENSIONS IVSd0.95 (0.7-1.1cm)LVDd4.15 (3.9-5.9cm) LVOT Diameter2.55 (1.8-2.4cm)PWd1.03 (0.7-1.1cm) IVSs0.95 (0.8-1.2cm)LVDs3.34 (2.5-4.0cm) FS (%) 19.4 %PWs1.40 (0.8-1.2cm) M-Mode DIMENSIONS Left Atrium (MM)4.04 (2.5-4.0cm)IVSd1.11 (0.7-1.1cm) Aortic Root3.58 (2.2-3.7cm)LVDd4.35 (4.0-5.6cm) PWd1.11 (0.7-1.1cm)IVSs1.52 cm FS (%) 46 %LVDs2.34 (2.0-3.8cm) PWs1.57 cm Aortic Valve AoV Peak Ykhzsyjl535.3cm/sAoV VTI19.4cmAO Peak GR.5mmHg LVOT Peak Mwrqmfyp30.3cm/sLVOT VTI15.64cmAO Mean GR.3mmHg ROYAL (VMAX)1.37uh7RWI (VTI)2.61zl3EW P 1/2 [id number] Mitral Valve MV E Pgsjuuhe38.9cm/sMV DECEL SCVO343vqCH A Qndptzjn99.7cm/s MV GQY40nrX/A ratio1.6MVA (PHT)6.21cm2 TDI E/Lateral E'0.0E/Medial E'0.0 Pulmonary Valve PV Peak Xcvhpnno466.0cm/s Tricuspid Valve TR Peak Gowimmkq352xm/sRAP JSMRQUHV07pfAzFL Peak Gr.33mmHg XKCG32wfHb LEFT VENTRICLE The left ventricle is normal size. There is normal left ventricular wall thickness. The left ventricular systolic function is normal. The estimated ejection fraction is 55-60% No regional wall motion abnormalities noted.. The left ventricular diastolic function is normal. No left ventricle thrombus noted on this study. There is no ventricular septal defect visualized. There is no left ventricular aneurysm. There is no mass noted in the left ventricle. RIGHT VENTRICLE The right ventricle is dilated. The right ventricle is moderate to severely hypertrophied. The right ventricular systolic function is normal. ATRIA The left atrium is mildly dilated. The right atrium is severely dilated. The interatrial septum is intact with no evidence for an atrial septal defect. AORTIC VALVE The aortic valve is normal in structure. Mild aortic regurgitation is present. There is no aortic valvular stenosis. There is no aortic valvular vegetation. MITRAL VALVE The mitral valve is normal in structure. There is no evidence of mitral valve prolapse. There is no mitral valve stenosis. There is trace mitral valve regurgitation noted. TRICUSPID VALVE The tricuspid valve is normal in structure. There is mild tricuspid valve regurgitation noted. RVSP is calculated at 55 mm Hg and consistent with mild to moderate pulmonary HTN. There is no tricuspid valve prolapse or vegetation. There is no tricuspid valve stenosis. PULMONIC VALVE The pulmonary valve is not well visualized. There is no pulmonic valvular regurgitation. Doppler parameters are consistent with severe pulmonic stenosis. Peak velocity is 4.25 m/sec. Correlate clinically. Consider JALEN for better visualization of valve. GREAT VESSELS The aortic root is normal in size. The ascending aorta is normal in size. The pulmonary artery is normal. The IVC is dilated and collapses <50% with inspiration. PERICARDIAL EFFUSION There is no pericardial effusion. There is no pleural effusion. <Conclusion> The estimated ejection fraction is 55-60% The left ventricular diastolic function is normal. The right ventricle is dilated. The right ventricle is moderate to severely hypertrophied. The left atrium is mildly dilated. The right atrium is severely dilated. Mild aortic regurgitation is present. There is mild tricuspid valve regurgitation noted. RVSP is calculated at 55 mm Hg and consistent with mild to moderate pulmonary HTN. The pulmonary valve is not well visualized. Doppler parameters are consistent with severe pulmonic stenosis. Peak velocity is 4.25 m/sec. Correlate clinically. Consider JALEN for better visualization of valve.
--- NOTE | 2018-05-14 15:51 | PCM.PYCHPN ---
Psychiatric Progress Note - Psychiatric Progress Note Patient seen today, length of contact: pt evaluated discussed with team chart reviewed Patient Chief Complaint: I still struggle with sleep but my mood is better Problems Identified/Issues Discussed: pt evaluated ,reported feeling less depressed , presenting with brighter affect, continues to report intermittent insomnia, discussed with pt the result of the cardiac echogardiogram, and that we would continue with oral medication, discussed importance of compliance with medication, pt motivated to start the partial program on discharge , reported clearing off of the auditory hallucinations denied suicidal or homicidal ideation, denied side effects of current medications Medical Problems: multiple inpatient hospitalizations DSM 5 Symptoms Update: schizoaffective disorder Medication Change: No Medical Record Reviewed: Yes Mental Status Examination - Cognitive Function Orientation: Person, Place, Situation Memory: Intact Attention: WNL Concentration: WNL Association: WNL Fund of Knowledge: [facility] Decription of patient's judgement and insights: partial insight, fair judgment - Mood Mood: Depressed, Anxious - Affect Affect: Constricted, Depressed - Speech Speech: Soft - Formal Thought Process Formal Thought Process: Hallucinations, Delusions, Paranoia - Suicidal Ideation Suicidal Ideation: No - Homicidal Ideation Homicidal Ideation: No Goal/Treatment Plan - Goal/Treatment Plan Need for Continued Stay: Severe depression anxiety, Discharge may exacerbated symptoms Progress Toward Problem(s) and Goals/Treatment Plan: Cardiology consult appreciated, results discussed with Dr Yolis leach haldol 5mg bid and 10mg qhs luvox 150mg qhs neurontin 100mg tid trazodone 100mg qhs monitor pt for psychopharmacological effects and side effect profile CBT group and supportive therapy Estimated Date of D/C: 05/18/18
--- NOTE | 2018-05-14 21:56 | CP.PCM.PN ---
Subjective - Date & Time of Evaluation Date of Evaluation: 05/14/18 Time of Evaluation: 16:25 Objective - Vital Signs/Intake and Output Vital Signs (last 24 hours): Temp Pulse Resp BP Pulse Ox 98.2 F 73 16 118/74 99 05/14/18 09:08 05/14/18 17:33 05/14/18 09:08 05/14/18 17:33 05/04/18 00:28 - Medications Medications: Current Medications Acetaminophen (Tylenol 325mg Tab) 650 mg PO Q4 PRN PRN Reason: pain 1-7 Al Hydrox/Mg Hydrox/Simethicone (Maalox Plus 30 Ml) 30 ml PO Q4 PRN PRN Reason: Dyspepsia Amlodipine Besylate (Norvasc) 2.5 mg PO BID [facility] Last Admin: 05/14/18 17:33 Dose: 2.5 mg Benztropine Mesylate (Cogentin) 1 mg PO BID [facility] Last Admin: 05/14/18 17:32 Dose: 1 mg Benztropine Mesylate (Cogentin) 1 mg PO HS [facility] Last Admin: 05/14/18 21:05 Dose: 1 mg Diphenhydramine HCl (Benadryl) 50 mg IM Q6 PRN PRN Reason: Extrapyramidal S/S Unable PO Diphenhydramine HCl (Benadryl) 50 mg PO Q6 PRN PRN Reason: Extrapyramidal Symptoms Last Admin: 05/08/18 11:26 Dose: 50 mg Diphenhydramine HCl (Benadryl) 50 mg PO HS PRN PRN Reason: Sleep Last Admin: 05/06/18 00:57 Dose: 50 mg Fluvoxamine Maleate (Luvox) 150 mg PO HS [facility] Last Admin: 05/14/18 21:05 Dose: 150 mg Gabapentin (Neurontin) 100 mg PO TID [facility] Last Admin: 05/14/18 17:32 Dose: 100 mg Haloperidol (Haldol) 5 mg PO Q4 PRN PRN Reason: Agitation Last Admin: 05/09/18 00:34 Dose: 5 mg Haloperidol (Haldol) 5 mg PO BID [facility] Last Admin: 05/14/18 17:35 Dose: 5 mg Haloperidol (Haldol) 10 mg PO [facility] Last Admin: 05/14/18 21:04 Dose: 10 mg Haloperidol Lactate (Haldol) 5 mg IM Q4 PRN PRN Reason: Agitation, Unable to Take PO Magnesium Hydroxide (Milk Of Magnesia) 30 ml PO HS PRN PRN Reason: Constipation Oxcarbazepine (Trileptal) 300 mg PO TID [facility] Last Admin: 05/14/18 17:32 Dose: 300 mg Trazodone HCl (Desyrel) 100 mg PO HS [facility] Last Admin: 05/14/18 21:05 Dose: 100 mg - Labs Labs: 05/04/18 08:00 05/04/18 08:00 Assessment and Plan (1) Murmur, cardiac Status: Chronic (2) Schizoaffective disorder Status: Acute (3) H/O pulmonic valve repair Status: Acute (4) Tachycardia Status: Acute
--- NOTE | 2018-05-15 14:42 | PCM.PYCHPN ---
Psychiatric Progress Note - Psychiatric Progress Note Patient seen today, length of contact: pt evaluated discussed with team chart reviewed Patient Chief Complaint: I feel better and I had better sleep yesterday, but I get overwhelmed Problems Identified/Issues Discussed: pt evaluated ,presenting with brighter affect, reported improved sleep, continues to have episodes of anxiety, feeling overwhelmed and unable to concentrate CBT provided discussing with pt coping skills with stresses, pt participating in treatment, attending groups, no reported side effects of medications, denied any current auditory hallucinations denied S/H I Medical Problems: multiple inpatient hospitalizations DSM 5 Symptoms Update: schizoaffective disorder Medication Change: No Medical Record Reviewed: Yes Mental Status Examination - Cognitive Function Orientation: Person, Place, Situation Memory: Intact Attention: WNL Concentration: WNL Association: WNL Fund of Knowledge: [facility] Decription of patient's judgement and insights: partial insight, fair judgment - Mood Mood: Depressed, Anxious - Affect Affect: Constricted, Depressed - Speech Speech: Soft - Formal Thought Process Formal Thought Process: Hallucinations, Delusions, Paranoia - Suicidal Ideation Suicidal Ideation: No - Homicidal Ideation Homicidal Ideation: No Goal/Treatment Plan - Goal/Treatment Plan Need for Continued Stay: Severe depression anxiety, Discharge may exacerbated symptoms Progress Toward Problem(s) and Goals/Treatment Plan: Cardiology consult appreciated, results discussed with Dr Lagos CONTINUE haldol 5mg bid and 10mg qhs luvox 150mg qhs neurontin 100mg tid trazodone 100mg qhs monitor pt for psychopharmacological effects and side effect profile CBT group and supportive therapy Estimated Date of D/C: 05/18/18
--- NOTE | 2018-05-16 01:26 | CP.PCM.PN ---
Subjective - Date & Time of Evaluation Date of Evaluation: 05/15/18 Time of Evaluation: 16:05 Objective - Vital Signs/Intake and Output Vital Signs (last 24 hours): Temp Pulse Resp BP Pulse Ox 96.9 F L 65 18 109/58 L 99 05/15/18 16:41 05/15/18 16:41 05/15/18 16:41 05/15/18 17:05 05/04/18 00:28 - Medications Medications: Current Medications Acetaminophen (Tylenol 325mg Tab) 650 mg PO Q4 PRN PRN Reason: pain 1-7 Al Hydrox/Mg Hydrox/Simethicone (Maalox Plus 30 Ml) 30 ml PO Q4 PRN PRN Reason: Dyspepsia Amlodipine Besylate (Norvasc) 2.5 mg PO BID [facility] Last Admin: 05/15/18 17:05 Dose: Not Given Benztropine Mesylate (Cogentin) 1 mg PO BID [facility] Last Admin: 05/15/18 16:59 Dose: 1 mg Benztropine Mesylate (Cogentin) 1 mg PO HS [facility] Last Admin: 05/15/18 21:05 Dose: 1 mg Diphenhydramine HCl (Benadryl) 50 mg IM Q6 PRN PRN Reason: Extrapyramidal S/S Unable PO Diphenhydramine HCl (Benadryl) 50 mg PO Q6 PRN PRN Reason: Extrapyramidal Symptoms Last Admin: 05/08/18 11:26 Dose: 50 mg Diphenhydramine HCl (Benadryl) 50 mg PO HS PRN PRN Reason: Sleep Last Admin: 05/15/18 21:47 Dose: 50 mg Fluvoxamine Maleate (Luvox) 150 mg PO HS [facility] Last Admin: 05/15/18 21:04 Dose: 150 mg Gabapentin (Neurontin) 100 mg PO TID [facility] Last Admin: 05/15/18 17:04 Dose: 100 mg Haloperidol (Haldol) 5 mg PO Q4 PRN PRN Reason: Agitation Last Admin: 05/09/18 00:34 Dose: 5 mg Haloperidol (Haldol) 5 mg PO BID [facility] Last Admin: 05/15/18 17:01 Dose: 5 mg Haloperidol (Haldol) 10 mg PO [facility] Last Admin: 05/15/18 21:04 Dose: 10 mg Haloperidol Lactate (Haldol) 5 mg IM Q4 PRN PRN Reason: Agitation, Unable to Take PO Magnesium Hydroxide (Milk Of Magnesia) 30 ml PO HS PRN PRN Reason: Constipation Oxcarbazepine (Trileptal) 300 mg PO TID [facility] Last Admin: 05/15/18 17:05 Dose: 300 mg Trazodone HCl (Desyrel) 100 mg PO HS [facility] Last Admin: 05/14/18 21:05 Dose: 100 mg - Labs Labs: 05/04/18 08:00 05/04/18 08:00 Assessment and Plan (1) Murmur, cardiac Status: Chronic (2) Schizoaffective disorder Status: Acute (3) H/O pulmonic valve repair Status: Acute (4) Tachycardia Status: Acute
--- NOTE | 2018-05-16 08:23 | PCM.PYCHPN ---
Psychiatric Progress Note - Psychiatric Progress Note Patient seen today, length of contact: pt evaluated discussed with team chart reviewed Patient Chief Complaint: pt has been improving with meds and therapy and is less depressed and less anxious with decrease in the paranoea and has better insight into his illness .pt denirs side effects to haldol . Medication Change: No Medical Record Reviewed: Yes Mental Status Examination - Cognitive Function Orientation: Person, Place, Situation Memory: Intact Attention: WNL Concentration: WNL Association: WNL Fund of Knowledge: WNL - Mood Mood: Depressed, Anxious - Affect Affect: Broad, Depressed - Speech Speech: Soft - Formal Thought Process Formal Thought Process: Hallucinations, Delusions, Paranoia - Suicidal Ideation Suicidal Ideation: No - Homicidal Ideation Homicidal Ideation: No Goal/Treatment Plan - Goal/Treatment Plan Need for Continued Stay: Severe depression anxiety, Discharge may exacerbated symptoms Progress Toward Problem(s) and Goals/Treatment Plan: Will continue to titrate haldol and titrate luvox as needed and engage pt in therapy. pt will be switched to haldol decoanate gradually.for better compliance .. D/c plans as per dr ariza. Estimated Date of D/C: 05/18/18
--- NOTE | 2018-05-17 11:13 | PCM.PYCHPN ---
Psychiatric Progress Note - Psychiatric Progress Note Patient seen today, length of contact: pt evaluated discussed with team chart reviewed Patient Chief Complaint: I am feeling better Problems Identified/Issues Discussed: pt evaluated ,reported improved mood presenting with brighter affect, reported improved sleep, continues to have episodes of anxiety, no reported side effects of medications, denied any current auditory hallucinations denied S/H I Medical Problems: multiple inpatient hospitalizations DSM 5 Symptoms Update: schizoaffective disorder Medication Change: No Medical Record Reviewed: Yes Mental Status Examination - Cognitive Function Orientation: Person, Place, Situation Memory: Intact Attention: WNL Concentration: WNL Association: WNL Fund of Knowledge: WNL - Mood Mood: Depressed, Anxious - Affect Affect: Broad, Depressed - Speech Speech: Soft - Formal Thought Process Formal Thought Process: Hallucinations, Delusions, Paranoia - Suicidal Ideation Suicidal Ideation: No - Homicidal Ideation Homicidal Ideation: No Goal/Treatment Plan - Goal/Treatment Plan Need for Continued Stay: Severe depression anxiety, Discharge may exacerbated symptoms Progress Toward Problem(s) and Goals/Treatment Plan: CONTINUE haldol 5mg bid and 10mg qhs luvox 150mg qhs neurontin 100mg tid trazodone 100mg qhs monitor pt for psychopharmacological effects and side effect profile CBT group and supportive therapy Estimated Date of D/C: 05/18/18
[2018-05-17 16:46] VITALS: RESP 18; TEMP 98.1
[2018-05-18 09:04] VITALS: BP 97/51
[2018-05-18 09:21] VITALS: PULSE 61
--- NOTE | 2018-05-18 15:28 | PCM.PYCHDC ---
Mental Status Examination - Mental Status Examination Orientation: Person, Place, Situation, Time Memory: Intact Mood: Neutral Affect: Broad Speech: Appropriate Attention: WNL Concentration: WNL Association: WNL Fund of Knowledge: WNL Formal Thought Process: Circumstantial Description of patient's judgement and insight: partial insight, fair judgment Psychotic Thoughts and Behaviors: pt on discharge denied any current perceptual disturbances, non elicited Suicidal Ideation: No Current Homicidal Ideation?: No Discharge Summary - Discharge Note Reason for Hospitalization: pt is 37ys old male with previous diagnosis of schizoaffective disorder and OCD , recently discharged reportedly compliant with medications, presented to ER due to increased anxiety , and experiencing auditory hallucinations telling him to kill himself and others pt on evaluation floridly psychotic reported ideas of reference stating when he goes to NA meeting, all other members believe that his henriquez indicates that he wants to have multiple sexual partners, they also tell him he looks good meaning that they think he relapsed on drugs pt reported since discharge he has been increasingly depressed as one of his best friends is diagnosed with cancer and suffering pt reported that he continues to experience auditory hallucinations telling him he is worthless and putting him down pt denied active thoughts of self harm on the unit, denied homicidal ideation Consultations:: List each consultation separately and include: 1. Reason for request. 2. Findings. 3. Follow-up Summary of Hospital Course include:: 1. Description of specific treatment plan utilized for patients during their course of treatmen. 2. Summarize the time- course for resolution of acute symptoms and/or regressed behaviors. 3. Describe issues identified and worked on during hospitalization. 4. Describe medication utilized. 5. Describe medical problems identified and treated. 6. Reassessment of suicide risk Summary of Hospital Course: pt admission was started on luvox and perphenazine, pt after initial improvement started to decompensate, continued to be psychotic and internally preoccupied perphenazine was cross titrated with haldol, haldo was increased to 20mg daily , pt mental status improved cardiology consult was requested and due to QTC prolongation pt was found not to be a good candidate for haldol decanoate pt participated in treatment attended groups, no reported side effects of medications on discharge mental status was stable pt denied suicidal or homicidal ideation, denied perceptual disturbances - Final Diagnosis (DSM 5) Condition upon Discharge: FAIR DSM 5: schizoaffective disorder bipolar OCD Disposition: HOME/ ROUTINE Follow-up Treatment Plan: CONTINUE haldol 5mg bid and 10mg qhs luvox 150mg qhs neurontin 100mg tid trazodone 100mg qhs monitor pt for psychopharmacological effects and side effect profile CBT group and supportive therapy Prescriptions/Medication Reconciliation: Benztropine [Cogentin] 1 mg PO HS 30 Days #30 tab Benztropine [Cogentin] 1 mg PO BID 30 Days #60 tab fluvoxaMINE [Luvox] 150 mg PO HS 30 Days #90 tab Gabapentin [Neurontin] 100 mg PO TID 30 Days #90 cap Haloperidol [Haldol] 10 mg PO HS 30 Days #60 tab Haloperidol [Haldol] 5 mg PO BID 30 Days #60 tab OXcarbazepine [Trileptal] 300 mg PO TID 30 Days #90 tab traZODone [Desyrel] 100 mg PO HS 30 Days #30 tab - Antipsychotic Medications Pt discharged on 2 or more routine antipsychotic medications: No
== END 2018-05-18 14:32 | disposition home or self-care (01) | DRG 885 ==
LOC: H.ER 17:55 → H.ERHOLD 19:31 → H.PSYCH 05-04 00:44
PROVIDERS: ADMIT Psychiatry & Neurology Psychiatry; ATTEND Psychiatry & Neurology Psychiatry
PROC: GZHZZZZ Group Psychotherapy (ICD-10-PCS; principal; 2018-05-03)
PROC: GZ58ZZZ Individual Psychotherapy, Cognitive-Behavioral (ICD-10-PCS; 2018-05-03)
PROC: GZ56ZZZ Individual Psychotherapy, Supportive (ICD-10-PCS; 2018-05-03)
DX: F25.0 Schizoaffective disorder, bipolar type (principal); R45.851 Suicidal ideations; Q87.2 Congenital malformation syndromes predominantly involving limbs; F42.9 Obsessive-compulsive disorder, unspecified; G47.00 Insomnia, unspecified; Z95.1 Presence of aortocoronary bypass graft; Z95.2 Presence of prosthetic heart valve; Z87.891 Personal history of nicotine dependence; Z88.2 Allergy status to sulfonamides; F41.1 Generalized anxiety disorder; I45.10 Unspecified right bundle-branch block; R01.1 Cardiac murmur, unspecified; R00.0 Tachycardia, unspecified

== ENCOUNTER 2018-05-31 15:53 | Inpatient (IN) | payer MEDICARE, SELFPAY ==
[2018-05-31 15:53] VITALS: BMI 20.5
--- NOTE | 2018-05-31 16:38 | ED PDOC ---
HPI: Psych/Substance Abuse Time Seen by Provider: 05/31/18 16:26 Chief Complaint (Nursing): Substance Abuse Chief Complaint (Provider): Substance Abuse History Per: Patient, Family History/Exam Limitations: no limitations Onset/Duration Of Symptoms: Hrs Current Symptoms Are (Timing): Better Additional Complaint(s): Patient is a 37 y/o male with a PMHx of bipolar disorder, cardia arrythmia, depression, and schizophrenia who was brought into the ED by mother after having taken a handful of Haldol and Trioptal last night at 2300. Patient states he was trying to hurt himself but just ended up feeling "high." Patient admits to overdose and suicidal ideation. Patient denies vomiting, chest pain, abdominal pain, and shortness of breath. PCP: Dr. Nicko Robledo Past Medical History Reviewed: Historical Data, Nursing Documentation, Vital Signs Vital Signs: Last Vital Signs Temp 98.9 F 05/31/18 16:10 Pulse 98 H 05/31/18 16:10 Resp 19 05/31/18 16:10 BP 103/63 05/31/18 16:10 Pulse Ox 100 05/31/18 16:10 - Medical History PMH: Bipolar Disorder, Cardia Arrhythmia, Depression, Schizophrenia Denies: Diabetes, Hepatitis, HIV, HTN, Chronic Kidney Disease, Seizures, Sexually Transmitted Disease - Surgical History Surgical History: CABG - Family History Family History: States: Unknown Family Hx - Home Medications Home Medications: Ambulatory Orders Medication Instructions Recorded Omeprazole 40 mg PO QOTHERDAY 04/13/18 Benztropine [Cogentin] 1 mg PO BID 30 Days #60 tab 05/18/18 Benztropine [Cogentin] 1 mg PO HS 30 Days #30 tab 05/18/18 Gabapentin [Neurontin] 100 mg PO TID 30 Days #90 cap 05/18/18 Haloperidol [Haldol] 5 mg PO BID 30 Days #60 tab 05/18/18 Haloperidol [Haldol] 10 mg PO HS 30 Days #60 tab 05/18/18 OXcarbazepine [Trileptal] 300 mg PO TID 30 Days #90 tab 05/18/18 fluvoxaMINE [Luvox] 150 mg PO HS 30 Days #90 tab 05/18/18 traZODone [Desyrel] 100 mg PO HS 30 Days #30 tab 05/18/18 amLODIPine [Norvasc] 2.5 mg PO DAILY 05/31/18 - Allergies Allergies/Adverse Reactions: Allergies Allergy/AdvReac Type Severity Reaction Status Date / Time Sulfa (Sulfonamide Allergy RASH Verified 06/01/18 02:41 Antibiotics) Review of Systems ROS Statement: Except As Marked, All Systems Reviewed And Found Negative Cardiovascular: Negative for: Chest Pain Respiratory: Negative for: Shortness of Breath Gastrointestinal: Negative for: Vomiting, Abdominal Pain Psych: Positive for: Suicidal ideation Physical Exam - Reviewed Nursing Documentation Reviewed: Yes Vital Signs Reviewed: Yes - Physical Exam Appears: Positive for: Non-toxic, No Acute Distress Head Exam: Positive for: ATRAUMATIC, NORMAL INSPECTION, NORMOCEPHALIC Skin: Positive for: Normal Color, Warm, Dry Eye Exam: Positive for: Normal appearance, EOMI, PERRL ENT: Positive for: Normal ENT Inspection Neck: Positive for: Normal, Painless ROM, Supple Cardiovascular/Chest: Positive for: Murmur Respiratory: Positive for: Normal Breath Sounds. Negative for: Respiratory Distress Gastrointestinal/Abdominal: Positive for: Normal Exam, Soft. Negative for: Tenderness Back: Positive for: Normal Inspection. Negative for: L CVA Tenderness, R CVA Tenderness, Vertebral Tenderness Extremity: Positive for: Normal ROM. Negative for: Pedal Edema, Deformity Neurologic/Psych: Positive for: Alert, Oriented, Other (Responsive to verbal stimuli). Negative for: Motor/Sensory Deficits - Laboratory Results Result Diagrams: 05/31/18 16:44 05/31/18 16:44 - ECG O2 Sat by Pulse Oximetry: 100 (RA) Pulse Ox Interpretation: Normal Medical Decision Making Medical Decision Making: Time: 1622 Impression: Overdose and Suicidal Ideation Plan: EKG Acetaminophen Alcohol Serum CMP Drug Screen, Urine Salicylate Urine CBC PTT Prothrombin Time CXR Glucose, POC UA 17:[address] Esquivel (covering for private Vehicle Operator Technician, Dr. Metcalf), states he does not access to old EKGs at this time, recommends Cardiology sales operations coordinator. 17:[address] Hinojosa, recommends Mg 2 g now, will come to ED to evaluate. 19:00 Patient is being signed out by me to Gita Maldonado MD pending complaint manager evaluation and eventually crisis evaluation. -------- Scribe Attestation: Documented by Chapin Peng, acting as a scribe for Sakshi Bryant MD. Provider Scribe Attestation: All medical record entries made by the Scribe were at my direction and personally dictated by me. I have reviewed the chart and agree that the record accurately reflects my personal performance of the history, physical exam, medical decision making, and the department course for this patient. I have also personally directed, reviewed, and agree with the discharge instructions and disposition. Documented by Kim Guillen, acting as a scribe for Sakshi Bryant MD. Provider Scribe Attestation: All medical record entries made by the Scribe were at my direction and personally dictated by me. I have reviewed the chart and agree that the record accurately reflects my personal performance of the history, physical exam, medical decision making, and the department course for this patient. I have also personally directed, reviewed, and agree with the discharge instructions and disposition. Disposition - Clinical Impression Clinical Impression: Schizoaffective disorder - Disposition Disposition: Transfer of Care Disposition Time: 19:00 Condition: STABLE Patient Signed Over To: Gita Maldonado
[2018-05-31 16:49] LABS: BASO % 0.3 % (0.0-2.0); LYMPH # 0.4 K/uL (1.0-4.3); MEAN CELL VOLUME 85.3 fl (80.0-94.0); MEAN CORPUSCULAR HEMOGLOBIN 28.4 pg (27.0-31.0); MEAN CORPUSCULAR HGB CONC 33.3 g/dL (33.0-37.0); MEAN PLATELET VOLUME 9.4 fl (7.2-11.7); MONO # 0.2 K/uL (0.0-0.8); MONO % 2.4 % (0.0-10.0); NEUT # 7.6 K/uL (1.8-7.0); NEUT % 92.3 % (50.0-75.0); RBC 5.29 Mil/uL (4.40-5.90); RED CELL DISTRIBUTION WIDTH 13.9 % (11.5-14.5); WHITE BLOOD COUNT 8.2 K/uL (4.8-10.8)
[2018-05-31 17:00] LABS: ACETAMINOPHEN < 10.0 ug/ml (10.0-30.0); SALICYLATE < 1.0 mg/dl
[2018-05-31] MEDS ORDERED: Sodium Chloride 0.9% 1,000 ML IV STA (17:01)
[2018-05-31 17:04] LABS: INR 1.1; PROTHROMBIN TIME 12.2 Seconds (9.8-13.1)
[2018-05-31 17:06] LABS: PARTIAL THROMBOPLASTIN TIME 27.8 Seconds (25.6-37.1)
[2018-05-31 17:17] LABS: ALB/GLOB RATIO 1.5 (1.0-2.1); ALBUMIN 4.1 g/dL (3.5-5.0); ALT/SGPT 46 U/L (21-72); AST/SGOT 20 U/L (17-59); BLOOD UREA NITROGEN 21 mg/dl (9-20); CALCIUM 9.4 mg/dL (8.4-10.2); GFR NON-AFRICAN AMERICAN > 60
--- NOTE | 2018-05-31 17:29 | RAD ---
Date of service: 05/31/2018 PROCEDURE: CHEST RADIOGRAPH, 1 VIEW HISTORY: Medical clearance COMPARISON: Chest radiograph dated 05/03/2018. FINDINGS: LUNGS: Clear. PLEURA: No pneumothorax or pleural fluid seen. CARDIOVASCULAR: Prior sternotomy with sternal wires in place. No aortic atherosclerotic calcifications. Cardiomediastinal silhouette unchanged.. OSSEOUS STRUCTURES: No significant abnormalities. VISUALIZED UPPER ABDOMEN: Normal. OTHER FINDINGS: None. IMPRESSION: No active disease.
[2018-05-31] MEDS ORDERED: Magnesium Sulfate 2 gm/50 ml 2 GM/50 ML BAG IVPB STA (17:48)
[2018-05-31 17:59] LABS: BARBITURATES, UR NEGATIVE (NEGATIVE); BENZODIAZEPINES, UR NEGATIVE (NEGATIVE); OPIATES, UR NEGATIVE (NEGATIVE); PHENCYCLIDINE, UR NEGATIVE (NEGATIVE)
[2018-05-31 18:01] LABS: URINE BILIRUBIN NEGATIVE (NEGATIVE); URINE BLOOD NEGATIVE (NEGATIVE); URINE CLARITY CLEAR (Clear); URINE COLOR YELLOW (YELLOW); URINE GLUCOSE (UA) NEG (NEGATIVE); URINE LEUKOCYTE ESTERASE NEG Leu/uL (Negative); URINE PROTEIN NEGATIVE (NEGATIVE); URINE UROBILINOGEN 0.2-1.0 mg/dL (0.2-1.0)
[2018-05-31] MEDS ORDERED: Magnesium Sulfate 2 gm/50 ml 2 GM/50 ML BAG ONE (18:17)
[2018-05-31 19:01] LABS: BANDS 1 % (0-2); LYMPHOCYTE 6 % (20-50); MONOCYTE 2 % (0-10); NEUTROPHIL 91 % (42-75); TOTAL CELLS COUNTED 100
[2018-05-31 19:05] LABS: PLATELET ESTIMATE MARKEDLY DECREASED (NORMAL); TEARDROP CELLS SLIGHT
[2018-05-31 19:06] LABS: HELMET CELLS SLIGHT
[2018-05-31 19:11] LABS: LARGE PLATELETS PRESENT
[2018-05-31 19:14] LABS: PLATELET COUNT 110 K/uL (130-400)
--- NOTE | 2018-05-31 19:36 | ED PDOC ---
- Laboratory Results Result Diagrams: 05/31/18 16:44 05/31/18 16:44 Lab Results: PT 12.2 Seconds (9.8-13.1) 05/31/18 16:44 INR 1.1 05/31/18 16:44 APTT 27.8 Seconds (25.6-37.1) 05/31/18 16:44 Total Bilirubin 0.4 mg/dl (0.2-1.3) 05/31/18 16:44 AST 20 U/L (17-59) 05/31/18 16:44 ALT 46 U/L (21-72) 05/31/18 16:44 Alkaline Phosphatase 52 U/L (38-126) 05/31/18 16:44 Total Protein 6.8 G/DL (6.3-8.2) 05/31/18 16:44 Albumin 4.1 g/dL (3.5-5.0) 05/31/18 16:44 Globulin 2.7 gm/dL (2.2-3.9) 05/31/18 16:44 Albumin/Globulin Ratio 1.5 (1.0-2.1) 05/31/18 16:44 Urine Color Yellow (YELLOW) 05/31/18 17:40 Urine Clarity Clear (Clear) 05/31/18 17:40 Urine pH 6.0 (5.0-8.0) 05/31/18 17:40 Ur Specific [place] 1.017 (1.003-1.030) 05/31/18 17:40 Urine Protein Negative mg/dL (NEGATIVE) 05/31/18 17:40 Urine Glucose (UA) Neg mg/dL (NEGATIVE) 05/31/18 17:40 Urine Ketones Negative mg/dL (NEGATIVE) 05/31/18 17:40 Urine Blood Negative (NEGATIVE) 05/31/18 17:40 Urine Nitrate Negative (NEGATIVE) 05/31/18 17:40 Urine Bilirubin Negative (NEGATIVE) 05/31/18 17:40 Urine Urobilinogen 0.2-1.0 mg/dL (0.2-1.0) 05/31/18 17:40 Ur Leukocyte Esterase Neg [place]/uL (Negative) 05/31/18 17:40 Urine RBC (Auto) 1 /hpf (0-3) 05/31/18 17:40 Urine Microscopic WBC < 1 /hpf (0-5) 05/31/18 17:40 - ECG O2 Sat by Pulse Oximetry: 100 (RA) Medical Decision Making Medical Decision Makin:00 Patient is being signed out to me by Sakshi Bryant MD pending jewish history professor evaluation and eventually crisis evaluation. 20:44 Paged after repeat EKG 21:19 Patient cleared by . Call placed to poison control. 21:25 Discussed case with poison control ([place]an). Patient cleared for psych. Patient on the board for psych. 00:07 Patient evaluated by crisis. Patient will be admitted to [facility] under schizoaffective. Scribe Attestation: Documented by Kim Guillen, acting as a scribe for Gita Maldonado MD. Provider Scribe Attestation: All medical record entries made by the Scribe were at my direction and personally dictated by me. I have reviewed the chart and agree that the record accurately reflects my personal performance of the history, physical exam, medical decision making, and the department course for this patient. I have also personally directed, reviewed, and agree with the discharge instructions and disposition. Disposition Counseled Patient/Family Regarding: Studies Performed, Diagnosis, Need For Followup - Clinical Impression Clinical Impression: Schizoaffective disorder - POA Present On Arrival: None - Disposition Disposition: Admitted as In-Patient Disposition Time: 00:00 Condition: STABLE
[2018-06-01] MEDS ORDERED: Magnesium Hydroxide Susp 30 ml UD PO PRN (02:10)
[2018-06-01] MEDS ORDERED: Alum-Mag Hydrox-Simethicone Susp (30 mL) PO PRN (02:10)
[2018-06-01] MEDS ORDERED: DiphenhydrAMINE 50 mg/ml Inj IM PRN (02:10)
--- NOTE | 2018-06-01 02:33 | PCM.BM ---
<YangShweta Mary - Last Filed: 06/01/18 02:31> Treatment Plan Problems - Problems identified on initial assessmt Suicidal Ideation Date Initiated: 06/01/18 Time Initiated: 02:31 Assessment reference: NA Status: Active Anxiety Date Initiated: 06/01/18 Time Initiated: 02:31 Assessment reference: NA Status: Active Ineffective Coping Date Initiated: 06/01/18 Time Initiated: 02:32 Assessment reference: NA Status: Active Altered Sleep Patterns Date Initiated: 06/01/18 Time Initiated: 02:32 Assessment reference: NA Status: Active Treatment assets and liabiliti Patient Assests: cooperative, motivated, self-reliant, ADL independent, good support system (Pt. reports having a loving relationship with mother, sister and niece/nephew. ), negotiates basic needs, good past tx response, cognitively intact Patient Liabilities: medical problems - Milieu Protocol Maintain good personal hygiene: daily Encourage regular showers, other Remind patient to perform daily oral care (prn), other Assist patient to perform ADL's (prn) Conduct patient checks and document Observation sheet: Q15 minutes Maintain personal safety: every shift Educate patient to report safety concerns to staff, every shift Monitor environment for contraband/sharps Medication safety: Monitor for expected outcome, potential side effects: every shift, Assess barriers to learning: every shift, Assess readiness for medication education: every shift <Trice Ramirez - Last Filed: 06/11/18 16:14> Treatment assets and liabiliti Patient Assests: cooperative, good support system, negotiates basic needs Patient Liabilities: medical problems Family Contact Family involvement: Family/SO is involved Family contact: Patient agrees to contact, Family has been contacted by patient, Telephone contact initiated by staff Family contact name: mother (Frida [phone]) Family contacted how many times per week?: 2 Family contact comment: [employer] placed call to pts mother (Frida [phone]) to discuss pts progress on 3NP. [employer] Main [employer]itter provided clinical updates regarding pts progress and current presentation on 3NP. Pts mother expressed understanding that pts primary goal is to live independently and confirmed that pt. has been on a wait list for housing in [place] for 5 years. Pts mother reported being made aware that pt. has recently refused medications and having had a conversation with pt. and explaining that in order for pt. to successfully live independently pt. must take medications as recommended and prioritize his tx upon discharge. Gas Main Fitter explained tx teams recommendation that pt. return to [facility] upon discharge to ensure further stabilization, reduce risk of future hospitalizations, and ensure safety/functioning in the community. [employer] Main Fitter to continue providing clinical updates regarding pts progress and discharge planning. - Goals for Treatment Patient goals for treatment: Patient to continue stabilization on 3NP through medication management and group/supportive therapy to address sxs of depression, reduce AH and paranoia, and eliminate SI. Patient to be encouraged to attend groups regularly to promote self-awareness, sobriety, and improve insight, compliance, coping skills and self-esteem. Patient to be provided with referral for appropriate level of aftercare to reduce risk of future hospitalizations and ensure safety in the community. Pt. identified wanting to get medication regimen "figured out" to "stay out of the hospital" for longer periods of time as primary tx goal. Discharge/Continuing Care - Education Needs Education Needs: Family Medication, Family Diagnosis/Disease Process, Family Community resources, Family Aftercare Safety Plan, Patient Medication, Patient Diagnosis/Disease Process, Patient Coping Skills, Patient Community resources, Patient Aftercare Safety Plan - Discharge Discharge Criteria: Tolerates medication w/o severe side effects, Free of Suicidal thoughts, Free of paranoid thoughts, Normal sleep pattern, Ability to care for self, Reduction of target symptoms Discharge to:: Home, With Family, Other ([facility]) - Treatment Team Participation Discussed with Family/SO: Yes Was Patient/Family/SO present at Treatment Team Meeting: Yes
[2018-06-01 02:55] VITALS: O2SAT 100
--- NOTE | 2018-06-01 09:05 | CARD ---
APPROVED REPORT Date of service: 05/31/2018 EKG Measurement Heart [id number] <Conclusion> Normal sinus rhythm Possible Left atrial enlargement Right bundle branch block Inferior infarct, age undetermined Abnormal ECG
--- NOTE | 2018-06-01 09:10 | CARD ---
APPROVED REPORT Date of service: 05/31/2018 EKG Measurement Heart [id number] <Conclusion> Normal sinus rhythm Possible Left atrial enlargement Right bundle branch block Inferior infarct, age undetermined Abnormal ECG
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
--- NOTE | 2018-06-02 00:10 | CP.PCM.HP ---
History of Present Illness - History of Present Illness History of Present Illness: Consulted by: Dr. Robledo Reason for Consult: Medical MX CC: Suicdal Attempt History of Present Illness: A 37 ys old male with H/O Pulmonary Valve Repair on low dose CCB, and Heart Murmur, Schizoaffective disorder and OCD brought to ER after recent suicidal attempt by overdose on medications. Multiple Psych admissions for similar pro blems. Present on Admission - Present on Admission Any Indicators Present on Admission: No Review of Systems - Review of Systems All systems: reviewed and no additional remarkable complaints except (as per HPI) Past Patient History - Infectious Disease Hx of Infectious Diseases: None - Past Medical History & Family History Past Medical History?: Yes Past Family History: Reviewed and not pertinent - Past Social History Smoking Status: Former Smoker Alcohol: None Drugs: Denies - CARDIAC Hx Cardia Arrhythmia: Yes Hx Hypertension: No - PULMONARY Hx Respiratory Disorders: No Hx Tuberculosis: No - NEUROLOGICAL Hx Seizures: No - HEENT Hx HEENT Problems: No - RENAL Hx Chronic Kidney Disease: No - ENDOCRINE/METABOLIC Hx Endocrine Disorders: No - HEMATOLOGICAL/ONCOLOGICAL Hx Human Immunodeficiency Virus (HIV): No - INTEGUMENTARY Hx Dermatological Problems: No - MUSCULOSKELETAL/RHEUMATOLOGICAL Hx Musculoskeletal Disorders: No Hx Falls: No - GASTROINTESTINAL Hx Gastrointestinal Disorders: Yes Hx Gastroesophageal Reflux: Yes Other/Comment: Hx Intestinal Obstruction - GENITOURINARY/GYNECOLOGICAL Hx Sexually Transmitted Disorders: No - PSYCHIATRIC Hx Bipolar Disorder: Yes Hx Depression: Yes Hx Schizophrenia: Yes - SURGICAL HISTORY Hx Coronary Artery Bypass Graft: Yes - ANESTHESIA Hx Anesthesia: Yes Hx Anesthesia Reactions: No Hx Malignant Hyperthermia: No Meds Allergies/Adverse Reactions: Allergies Allergy/AdvReac Type Severity Reaction Status Date / Time Sulfa (Sulfonamide Allergy RASH Verified 06/01/18 02:41 Antibiotics) Physical Exam - Constitutional Appears: No Acute Distress - Head Exam Head Exam: ATRAUMATIC, NORMAL INSPECTION, NORMOCEPHALIC - Eye Exam Eye Exam: EOMI, Normal appearance, PERRL Pupil Exam: NORMAL ACCOMODATION, PERRL - ENT Exam ENT Exam: Mucous Membranes Moist, Normal Exam - Neck Exam Neck exam: Positive for: Normal Inspection - Respiratory Exam Respiratory Exam: Clear to Auscultation Bilateral, NORMAL BREATHING PATTERN - Cardiovascular Exam Cardiovascular Exam: Diastolic murmur, REGULAR RHYTHM, +S1, +S2, Systolic Murmur - GI/Abdominal Exam GI & Abdominal Exam: Normal Bowel Sounds, Soft. absent: Tenderness - Extremities Exam Extremities exam: Positive for: normal inspection - Back Exam Back exam: NORMAL INSPECTION - Neurological Exam Neurological exam: Alert, CN II-XII Intact, Normal Gait, Oriented x3, Reflexes Normal - Psychiatric Exam Psychiatric exam: Normal Affect, Normal Mood - Skin Skin Exam: Dry, Intact, Normal Color, Warm Results - Vital Signs Recent Vital Signs: Last Vital Signs Temp 98.2 F 06/01/18 09:00 Pulse 87 06/01/18 09:00 Resp 18 06/01/18 09:00 BP 127/76 06/01/18 09:00 Pulse Ox 100 06/01/18 16:03 - Labs Result Diagrams: 06/02/18 07:58 05/31/18 16:44 Assessment & Plan (1) Suicide attempt Status: Acute Priority: High (2) Schizoaffective disorder Status: Acute Priority: High (3) H/O pulmonic valve repair Status: Acute Priority: Low (4) Murmur, cardiac Status: Chronic Priority: High - Assessment and Plan (Free Text) Plan: C/w Amlodipine 2.5mg Daily C/w Psych recommendation
[2018-06-02 08:07] LABS: BASO % 0.3 % (0.0-2.0); EOS # 0.1 K/uL (0.0-0.7); EOS % 1.2 % (0.0-4.0); HEMOGLOBIN 14.5 g/dL (12.0-18.0); LYMPH # 1.2 K/uL (1.0-4.3); LYMPH % 21.4 % (20.0-40.0); MEAN CELL VOLUME 84.3 fl (80.0-94.0); MEAN CORPUSCULAR HEMOGLOBIN 28.1 pg (27.0-31.0); MEAN CORPUSCULAR HGB CONC 33.3 g/dL (33.0-37.0); MEAN PLATELET VOLUME 9.3 fl (7.2-11.7); MONO # 0.5 K/uL (0.0-0.8); MONO % 9.8 % (0.0-10.0); NEUT # 3.7 K/uL (1.8-7.0); NEUT % 67.3 % (50.0-75.0); NRBC % 0.1 % (0.0-0.0); RBC 5.18 Mil/uL (4.40-5.90); RED CELL DISTRIBUTION WIDTH 13.4 % (11.5-14.5); WHITE BLOOD COUNT 5.6 K/uL (4.8-10.8)
--- NOTE | 2018-06-02 13:48 | PCM.PYCHPN ---
Psychiatric Progress Note - Psychiatric Progress Note Patient seen today, length of contact: pt evaluated discussed with team chart reviewed Patient Chief Complaint: I took more haldol because I was craving for opiates Problems Identified/Issues Discussed: PT on evaluation, presenting with anxious mood and affect, stated that he took more haldol as he has been struggling with his craving for opiates discussed with pt the possibility of starting maintenance treatment including naloxone ,to help with the cravings and also to attend NA meetings on discharge,pt reported increased sedation with start of clozaril, requested to be stopped, he continues to appear internally pre occupied with thought blocking, discussed gradual increase in dose of haldol, no reported side effects of haldol pt denied command hallucinations, denied active thoughts of self harm on the unit also discussed holding trileptal for low platelet count and pt made aware of initiating Hematology consult Medical Problems: multiple hospitalizations, partial compliance DSM 5 Symptoms Update: schizoaffective disorder bipolar opiate dependence in full sustained remission OCD Medication Change: Yes (d/c clozaril) Medical Record Reviewed: Yes Mental Status Examination - Cognitive Function Orientation: Person, Place, Situation Attention: WNL Concentration: Poor Association: Loose Fund of Knowledge: Poor Decription of patient's judgement and insights: partial insight poor judgment - Mood Mood: Anxious - Affect Affect: Constricted, Depressed - Speech Speech: Soft - Formal Thought Process Formal Thought Process: Hallucinations, Delusions, Paranoia - Suicidal Ideation Suicidal Ideation: No - Homicidal Ideation Homicidal Ideation: No Goal/Treatment Plan - Goal/Treatment Plan Need for Continued Stay: Discharge may exacerbated symptoms, Failed transitioning Progress Toward Problem(s) and Goals/Treatment Plan: discontinue clozarl increase HAldol 5mg bid and 5mg qhs luvox 100mg qhs, increase gradually neurontin 100mg tid group and supportive therapy platelet count repeat noted to be low/ Hematology consult requested with holding og trileptal as a possible cause of thrombocytopenia
--- NOTE | 2018-06-02 23:58 | CP.PCM.PN ---
Subjective - Date & Time of Evaluation Date of Evaluation: 06/02/18 Time of Evaluation: 18:15 Objective - Vital Signs/Intake and Output Vital Signs (last 24 hours): Temp Pulse Resp BP Pulse Ox 97.7 F 85 18 130/85 100 06/02/18 09:00 06/02/18 09:00 06/02/18 09:00 06/02/18 09:00 06/01/18 16:03 - Medications Medications: Current Medications Acetaminophen (Tylenol 325mg Tab) 650 mg PO Q4 PRN PRN Reason: pain 4-7 Al Hydrox/Mg Hydrox/Simethicone (Maalox Plus 30 Ml) 30 ml PO Q4 PRN PRN Reason: Dyspepsia Amlodipine Besylate (Norvasc) 2.5 mg PO DAILY [facility] Last Admin: 06/02/18 08:53 Dose: 2.5 mg Benztropine Mesylate (Cogentin) 0.5 mg PO HS [facility] Last Admin: 06/02/18 21:03 Dose: 0.5 mg Diphenhydramine HCl (Benadryl) 50 mg IM Q6 PRN PRN Reason: Extrapyramidal S/S Unable PO Diphenhydramine HCl (Benadryl) 50 mg PO Q6 PRN PRN Reason: Extrapyramidal Symptoms Diphenhydramine HCl (Benadryl) 50 mg PO HS PRN PRN Reason: Sleep Fluvoxamine Maleate (Luvox) 100 mg PO HS [facility] Last Admin: 06/02/18 21:03 Dose: 100 mg Gabapentin (Neurontin) 100 mg PO TID [facility] Last Admin: 06/02/18 17:27 Dose: 100 mg Haloperidol (Haldol) 5 mg PO Q4 PRN PRN Reason: Agitation Haloperidol (Haldol) 5 mg PO BID [facility] Last Admin: 06/02/18 17:27 Dose: 5 mg Haloperidol (Haldol) 5 mg PO HS [facility] Last Admin: 06/02/18 21:03 Dose: 5 mg Haloperidol Lactate (Haldol) 5 mg IM Q4 PRN PRN Reason: Agitation, Unable to Take PO Lorazepam (Ativan) 2 mg IM Q6 PRN PRN Reason: Anxiety/Agitation,Unable PO Lorazepam (Ativan) 1 mg PO Q8 PRN PRN Reason: Anxiety/Agitation Magnesium Hydroxide (Milk Of Magnesia) 30 ml PO HS PRN PRN Reason: Constipation - Labs Labs: 06/02/18 07:58 05/31/18 16:44 PT 12.2 Seconds (9.8-13.1) 05/31/18 16:44 INR 1.1 05/31/18 16:44 APTT 27.8 Seconds (25.6-37.1) 05/31/18 16:44
--- NOTE | 2018-06-03 12:16 | CP.PCM.CON ---
History of Present Illness - History of Present Illness History of Present Illness: This is a patient with known bipolar disorder and also schizophrenic disorder. He has had several psych admissions for thew same. This time he was not co ntrollable at home and was admitted. His platelet count which on admission was 117kK dropped to 100k. There is ecchymosis or bleeding. He is not on any medications which could be causing thrombocytopenia. He was an alcoholic in the past, but has not had a drink iin the past 10 yrs. He has had abdominal surgeries for hernias, and also a open heart surgey. No h/o splenomegaly. Past Patient History - Infectious Disease Hx of Infectious Diseases: None - Past Medical History & Family History Past Medical History?: Yes - Past Social History Smoking Status: Former Smoker - CARDIAC Hx Cardia Arrhythmia: Yes Hx Hypertension: No - PULMONARY Hx Respiratory Disorders: No Hx Tuberculosis: No - NEUROLOGICAL Hx Seizures: No - HEENT Hx HEENT Problems: No - RENAL Hx Chronic Kidney Disease: No - ENDOCRINE/METABOLIC Hx Endocrine Disorders: No - HEMATOLOGICAL/ONCOLOGICAL Hx Human Immunodeficiency Virus (HIV): No - INTEGUMENTARY Hx Dermatological Problems: No - MUSCULOSKELETAL/RHEUMATOLOGICAL Hx Musculoskeletal Disorders: No Hx Falls: No - GASTROINTESTINAL Hx Gastrointestinal Disorders: Yes Hx Gastroesophageal Reflux: Yes Other/Comment: Hx Intestinal Obstruction - GENITOURINARY/GYNECOLOGICAL Hx Sexually Transmitted Disorders: No - PSYCHIATRIC Hx Bipolar Disorder: Yes Hx Depression: Yes Hx Schizophrenia: Yes - SURGICAL HISTORY Hx Coronary Artery Bypass Graft: Yes - ANESTHESIA Hx Anesthesia: Yes Hx Anesthesia Reactions: No Hx Malignant Hyperthermia: No Meds Allergies/Adverse Reactions: Allergies Allergy/AdvReac Type Severity Reaction Status Date / Time Sulfa (Sulfonamide Allergy RASH Verified 06/01/18 02:41 Antibiotics) - Medications Medications: Current Medications Acetaminophen (Tylenol 325mg Tab) 650 mg PO Q4 PRN PRN Reason: pain 4-7 Al Hydrox/Mg Hydrox/Simethicone (Maalox Plus 30 Ml) 30 ml PO Q4 PRN PRN Reason: Dyspepsia Amlodipine Besylate (Norvasc) 2.5 mg PO DAILY [facility] Last Admin: 06/03/18 08:48 Dose: 2.5 mg Benztropine Mesylate (Cogentin) 0.5 mg PO HS [facility] Last Admin: 06/02/18 21:03 Dose: 0.5 mg Diphenhydramine HCl (Benadryl) 50 mg IM Q6 PRN PRN Reason: Extrapyramidal S/S Unable PO Diphenhydramine HCl (Benadryl) 50 mg PO Q6 PRN PRN Reason: Extrapyramidal Symptoms Diphenhydramine HCl (Benadryl) 50 mg PO HS PRN PRN Reason: Sleep Fluvoxamine Maleate (Luvox) 100 mg PO HS [facility] Last Admin: 06/02/18 21:03 Dose: 100 mg Gabapentin (Neurontin) 100 mg PO TID [facility] Last Admin: 06/03/18 08:48 Dose: 100 mg Haloperidol (Haldol) 5 mg PO Q4 PRN PRN Reason: Agitation Haloperidol (Haldol) 5 mg PO BID [facility] Last Admin: 06/03/18 08:48 Dose: 5 mg Haloperidol (Haldol) 5 mg PO HS [facility] Last Admin: 06/02/18 21:03 Dose: 5 mg Haloperidol Lactate (Haldol) 5 mg IM Q4 PRN PRN Reason: Agitation, Unable to Take PO Lorazepam (Ativan) 2 mg IM Q6 PRN PRN Reason: Anxiety/Agitation,Unable PO Lorazepam (Ativan) 1 mg PO Q8 PRN PRN Reason: Anxiety/Agitation Magnesium Hydroxide (Milk Of Magnesia) 30 ml PO HS PRN PRN Reason: Constipation Trazodone HCl (Desyrel) 100 mg PO HS [facility] Physical Exam - Additional Findings Additional findings: Physical exam; alert,welloriented in no acute distress neck; supple, no adenopathy chest; Clear, no ales or rgonchi Heart; RSR, no murmur Abd; soft, no mass,no h/s megaly Results - Vital Signs Recent Vital Signs: Last Vital Signs Temp 98.1 F 06/03/18 09:00 Pulse 81 06/03/18 09:00 Resp 18 06/03/18 09:00 BP 104/65 06/03/18 09:00 Pulse Ox 100 06/01/18 16:03 - Labs Result Diagrams: 06/02/18 07:58 05/31/18 16:44 Labs: Laboratory Results - last 24 hr 06/02/18 06/02/18 07:58 07:58 Hemoglobin A1c 5.7 RPR Nonreactive Assessment & Plan - Assessment and Plan (Free Text) Assessment: Impression; ? immune thrombocytopenia Plan: Plan; will do a manual platelet count to see if nthe platelet count is real and not due to platelet aggregation. Have ordered platelet antibodies. - Date & Time Date: 06/03/18 Time: 12:22
--- NOTE | 2018-06-03 16:06 | PCM.PYCHPN ---
Psychiatric Progress Note - Psychiatric Progress Note Patient seen today, length of contact: pt evaluated discussed with team chart reviewed Patient Chief Complaint: I still hear voices and I get paranoid Problems Identified/Issues Discussed: PT evaluated with treatment team , reported continues to have auditory hallucinations putting him down also presenting with paranoid delusions and poor sleep, discussed increasing dose of haldol and trazodone, CBT provided, encouraged to attend groups pt denied current suicidal or homicidal ideation, denied command hallucinations Medical Problems: multiple hospitalizations, partial compliance DSM 5 Symptoms Update: schizoaffective disorder Medication Change: Yes (increase haldol) Medical Record Reviewed: Yes Mental Status Examination - Cognitive Function Orientation: Person, Place, Situation Attention: WNL Concentration: Poor Association: Loose Fund of Knowledge: Poor Decription of patient's judgement and insights: partial insight poor judgment - Mood Mood: Anxious - Affect Affect: Constricted, Depressed - Speech Speech: Soft - Formal Thought Process Formal Thought Process: Hallucinations, Delusions, Paranoia - Suicidal Ideation Suicidal Ideation: No - Homicidal Ideation Homicidal Ideation: No Goal/Treatment Plan - Goal/Treatment Plan Need for Continued Stay: Discharge may exacerbated symptoms, Failed transitioning Progress Toward Problem(s) and Goals/Treatment Plan: hematology consult appreciated will follow up on lab results requested increase HAldol 5mg bid and 10mg qhs luvox 100mg qhs, increase gradually neurontin 100mg tid group and supportive therapy
--- NOTE | 2018-06-04 09:14 | CP.PCM.PN ---
Subjective - Date & Time of Evaluation Date of Evaluation: 06/04/18 Time of Evaluation: 09:08 - Subjective Subjective: Patient is doing well. I had ordered a manual platelet count to check if his platelets were clumped and the count low because of a wrong reading by the machine. The manual count was 143 which is close to normal. The platelet antibodies will take a longer time to come back,. Pt may be discharged from a hematology point of view. Objective - Vital Signs/Intake and Output Vital Signs (last 24 hours): Temp Pulse Resp BP Pulse Ox 98.1 F 92 H 18 114/75 100 06/03/18 09:00 06/04/18 08:32 06/03/18 09:00 06/04/18 08:32 06/01/18 16:03 - Medications Medications: Current Medications Acetaminophen (Tylenol 325mg Tab) 650 mg PO Q4 PRN PRN Reason: pain 4-7 Al Hydrox/Mg Hydrox/Simethicone (Maalox Plus 30 Ml) 30 ml PO Q4 PRN PRN Reason: Dyspepsia Amlodipine Besylate (Norvasc) 2.5 mg PO DAILY [facility] Last Admin: 06/04/18 08:32 Dose: 2.5 mg Benztropine Mesylate (Cogentin) 0.5 mg PO HS [facility] Last Admin: 06/03/18 21:24 Dose: 0.5 mg Diphenhydramine HCl (Benadryl) 50 mg IM Q6 PRN PRN Reason: Extrapyramidal S/S Unable PO Diphenhydramine HCl (Benadryl) 50 mg PO Q6 PRN PRN Reason: Extrapyramidal Symptoms Diphenhydramine HCl (Benadryl) 50 mg PO HS PRN PRN Reason: Sleep Fluvoxamine Maleate (Luvox) 100 mg PO HS [facility] Last Admin: 06/03/18 21:24 Dose: 100 mg Gabapentin (Neurontin) 100 mg PO TID [facility] Last Admin: 06/04/18 08:32 Dose: 100 mg Haloperidol (Haldol) 5 mg PO Q4 PRN PRN Reason: Agitation Haloperidol (Haldol) 5 mg PO BID [facility] Last Admin: 06/04/18 08:32 Dose: 5 mg Haloperidol (Haldol) 10 mg PO HS [facility] Last Admin: 02/13/19 21:24 Dose: 10 mg Haloperidol Lactate (Haldol) 5 mg IM Q4 PRN PRN Reason: Agitation, Unable to Take PO Magnesium Hydroxide (Milk Of Magnesia) 30 ml PO HS PRN PRN Reason: Constipation Trazodone HCl (Desyrel) 200 mg PO HS [facility] Last Admin: 06/03/18 21:24 Dose: 200 mg - Labs Labs: 06/02/18 07:58 05/31/18 16:44 PT 12.2 Seconds (9.8-13.1) 05/31/18 16:44 INR 1.1 05/31/18 16:44 APTT 27.8 Seconds (25.6-37.1) 05/31/18 16:44
--- NOTE | 2018-06-04 12:31 | PCM.PYCHPN ---
Psychiatric Progress Note - Psychiatric Progress Note Patient seen today, length of contact: pt evaluated discussed with team chart reviewed Patient Chief Complaint: I have hard time sleeping and I still hear voices Problems Identified/Issues Discussed: PT evaluated , presenting with anxious mood and affect, reported poor sleep with intermittent insomnia, continues to have non command auditory hallucinations, putting him down resulting in depressed mood, discussed with pt augmenting haldol with seroquel, CBT provided pt denied current suicidal or homicidal ideation, denied command hallucinations Medical Problems: multiple hospitalizations, partial compliance DSM 5 Symptoms Update: schizoaffective disorder bipolar Medication Change: Yes (start seroquel) Medical Record Reviewed: Yes Mental Status Examination - Cognitive Function Orientation: Person, Place, Situation Attention: WNL Concentration: Poor Association: Loose Fund of Knowledge: Poor Decription of patient's judgement and insights: partial insight poor judgment - Mood Mood: Anxious - Affect Affect: Constricted, Depressed - Speech Speech: Soft - Formal Thought Process Formal Thought Process: Hallucinations, Delusions, Paranoia - Suicidal Ideation Suicidal Ideation: No - Homicidal Ideation Homicidal Ideation: No Goal/Treatment Plan - Goal/Treatment Plan Need for Continued Stay: Discharge may exacerbated symptoms, Failed transitioning Progress Toward Problem(s) and Goals/Treatment Plan: hematology consult appreciated HAldol 5mg bid and 10mg qhs discontinue luvox , neurontin and trazodone start seroquel 100mg qhs and increase gradually group and supportive therapy
--- NOTE | 2018-06-05 01:18 | CP.PCM.PN ---
Subjective - Date & Time of Evaluation Date of Evaluation: 06/03/18 Objective - Vital Signs/Intake and Output Vital Signs (last 24 hours): Temp Pulse Resp BP Pulse Ox 97.9 F 92 H 18 114/75 100 06/04/18 09:00 06/04/18 09:00 06/04/18 09:00 06/04/18 09:00 06/01/18 16:03 - Medications Medications: Current Medications Acetaminophen (Tylenol 325mg Tab) 650 mg PO Q4 PRN PRN Reason: pain 4-7 Al Hydrox/Mg Hydrox/Simethicone (Maalox Plus 30 Ml) 30 ml PO Q4 PRN PRN Reason: Dyspepsia Amlodipine Besylate (Norvasc) 2.5 mg PO DAILY [facility] Last Admin: 06/04/18 08:32 Dose: 2.5 mg Benztropine Mesylate (Cogentin) 0.5 mg PO HS [facility] Last Admin: 06/04/18 21:35 Dose: 0.5 mg Diphenhydramine HCl (Benadryl) 50 mg IM Q6 PRN PRN Reason: Extrapyramidal S/S Unable PO Diphenhydramine HCl (Benadryl) 50 mg PO Q6 PRN PRN Reason: Extrapyramidal Symptoms Diphenhydramine HCl (Benadryl) 50 mg PO HS PRN PRN Reason: Sleep Last Admin: 06/04/18 21:58 Dose: 50 mg Haloperidol (Haldol) 5 mg PO Q4 PRN PRN Reason: Agitation Haloperidol (Haldol) 5 mg PO BID [facility] Last Admin: 06/04/18 17:21 Dose: 5 mg Haloperidol (Haldol) 10 mg PO HS [facility] Last Admin: 06/04/18 21:35 Dose: 10 mg Haloperidol Lactate (Haldol) 5 mg IM Q4 PRN PRN Reason: Agitation, Unable to Take PO Magnesium Hydroxide (Milk Of Magnesia) 30 ml PO HS PRN PRN Reason: Constipation Quetiapine Fumarate (Seroquel) 100 mg PO HS [facility] Last Admin: 06/04/18 21:35 Dose: 100 mg - Labs Labs: 06/02/18 07:58 05/31/18 16:44 PT 12.2 Seconds (9.8-13.1) 05/31/18 16:44 INR 1.1 05/31/18 16:44 APTT 27.8 Seconds (25.6-37.1) 05/31/18 16:44
--- NOTE | 2018-06-05 14:43 | PCM.PYCHPN ---
Psychiatric Progress Note - Psychiatric Progress Note Patient seen today, length of contact: pt evaluated discussed with team chart reviewed Patient Chief Complaint: I slept better last night Problems Identified/Issues Discussed: PT evaluated ,reported improved sleep with seroquel, feeling less anxious continues to report non command auditory hallucinations putting him down, discussed with pt gradual increase of seroquel for augmentation of haldol, no current reported side effects, CBT provided, discussed with challenging negative thoughts resulting from the auditory hallucinations pt denied current suicidal or homicidal ideation, denied command hallucinations Medical Problems: multiple hospitalizations, partial compliance DSM 5 Symptoms Update: schizoaffective disorder bipolar Medication Change: Yes (increase seroquel) Medical Record Reviewed: Yes Mental Status Examination - Cognitive Function Orientation: Person, Place, Situation Attention: WNL Concentration: Poor Association: Loose Fund of Knowledge: Poor Decription of patient's judgement and insights: partial insight poor judgment - Mood Mood: Anxious - Affect Affect: Constricted, Depressed - Speech Speech: Soft - Formal Thought Process Formal Thought Process: Hallucinations, Delusions, Paranoia - Suicidal Ideation Suicidal Ideation: No - Homicidal Ideation Homicidal Ideation: No Goal/Treatment Plan - Goal/Treatment Plan Need for Continued Stay: Discharge may exacerbated symptoms, Failed transitioning Progress Toward Problem(s) and Goals/Treatment Plan: decrease HAldol 5mg bid and 5 mg qhs/ will shift to haldol decanoate increase seroquel 200mg qhs and uptitrate gradually monitor for psychopharmacological effects and side efefct profile group and supportive therapy
[2018-06-06] MEDS: Multivitamin With Minerals Tab PO SCH (09:12)
--- NOTE | 2018-06-06 17:33 | PCM.PYCHPN ---
Psychiatric Progress Note - Psychiatric Progress Note Patient seen today, length of contact: pt evaluated discussed with team chart reviewed Patient Chief Complaint: pt feeling anxious, trying to work on communication of feelings, noted so spit out haldol reported did not want to take it, seen about unit Problems Identified/Issues Discussed: alteration in mood , cognition Diagnostic Results: per chart Medication Change: No (d/c haldol, increase seroquel to 300mg po hs ) Medical Record Reviewed: Yes Consults ordered or reviewed: pt seen by hospitalist Mental Status Examination - Cognitive Function Orientation: Person, Place, Situation Attention: WNL Concentration: Poor Association: Loose Fund of Knowledge: Poor Decription of patient's judgement and insights: impaired - Mood Mood: Anxious - Affect Affect: Constricted, Depressed - Speech Speech: Soft - Formal Thought Process Formal Thought Process: Hallucinations, Delusions, Paranoia - Suicidal Ideation Suicidal Ideation: No - Homicidal Ideation Homicidal Ideation: No Goal/Treatment Plan - Goal/Treatment Plan Need for Continued Stay: Discharge may exacerbated symptoms, Failed transitioning Progress Toward Problem(s) and Goals/Treatment Plan: inpt milieu adjust meds per status-will d/c haldol reportedly does not like the way it makes him feel will increase seroquel to 300mg po hs discharge planning in progress Estimated Date of D/C: 06/12/18 - Smoking Cessation Smoking Cessation Initiated: No Reason for not providing: pt defers
[2018-06-07] MEDS: Multivitamin With Minerals Tab PO SCH (09:49)
[2018-06-08] MEDS: Multivitamin With Minerals Tab PO SCH (08:46)
--- NOTE | 2018-06-08 10:17 | CP.PCM.PN ---
Subjective - Date & Time of Evaluation Date of Evaluation: 06/05/18 Objective - Vital Signs/Intake and Output Vital Signs (last 24 hours): Temp Pulse Resp BP Pulse Ox 98.2 F 89 18 107/67 100 06/07/18 09:00 06/08/18 08:48 06/07/18 09:00 06/08/18 08:48 06/01/18 16:03 - Medications Medications: Current Medications Acetaminophen (Tylenol 325mg Tab) 650 mg PO Q4 PRN PRN Reason: pain 4-7 Al Hydrox/Mg Hydrox/Simethicone (Maalox Plus 30 Ml) 30 ml PO Q4 PRN PRN Reason: Dyspepsia Amlodipine Besylate (Norvasc) 2.5 mg PO DAILY [facility] Last Admin: 06/08/18 08:48 Dose: 2.5 mg Benztropine Mesylate (Cogentin) 0.5 mg PO HS [facility] Last Admin: 06/07/18 21:21 Dose: 0.5 mg Diphenhydramine HCl (Benadryl) 50 mg IM Q6 PRN PRN Reason: Extrapyramidal S/S Unable PO Diphenhydramine HCl (Benadryl) 50 mg PO Q6 PRN PRN Reason: Extrapyramidal Symptoms Diphenhydramine HCl (Benadryl) 50 mg PO HS PRN PRN Reason: Sleep Last Admin: 06/07/18 01:37 Dose: 50 mg Haloperidol (Haldol) 5 mg PO Q4 PRN PRN Reason: Agitation Haloperidol (Haldol) 5 mg PO BID [facility] Last Admin: 06/08/18 08:49 Dose: 5 mg Haloperidol (Haldol) 5 mg PO HS [facility] Last Admin: 06/07/18 21:21 Dose: 5 mg Haloperidol Lactate (Haldol) 5 mg IM Q4 PRN PRN Reason: Agitation, Unable to Take PO Lorazepam (Ativan) 2 mg IM Q4 PRN PRN Reason: Anxiety/Agitation,Unable PO Lorazepam (Ativan) 1 mg PO Q8 PRN PRN Reason: Anxiety/Agitation Last Admin: 06/07/18 21:26 Dose: 1 mg Magnesium Hydroxide (Milk Of Magnesia) 30 ml PO HS PRN PRN Reason: Constipation Multivitamins/Minerals (Therapeutic-M Tab) 1 tab PO DAILY [facility] Last Admin: 06/08/18 08:46 Dose: 1 tab Quetiapine Fumarate (Seroquel) 300 mg PO DAILY [facility] Last Admin: 06/08/18 08:49 Dose: 300 mg - Labs Labs: 06/02/18 07:58 05/31/18 16:44 PT 12.2 Seconds (9.8-13.1) 05/31/18 16:44 INR 1.1 05/31/18 16:44 APTT 27.8 Seconds (25.6-37.1) 05/31/18 16:44 Assessment and Plan (1) Suicide attempt Status: Acute (2) Schizoaffective disorder Status: Acute (3) H/O pulmonic valve repair Status: Acute (4) Murmur, cardiac Status: Chronic
--- NOTE | 2018-06-08 10:18 | CP.PCM.PN ---
Subjective - Date & Time of Evaluation Date of Evaluation: 06/06/18 Objective - Vital Signs/Intake and Output Vital Signs (last 24 hours): Temp Pulse Resp BP Pulse Ox 98.2 F 89 18 107/67 100 06/07/18 09:00 06/08/18 08:48 06/07/18 09:00 06/08/18 08:48 06/01/18 16:03 - Medications Medications: Current Medications Acetaminophen (Tylenol 325mg Tab) 650 mg PO Q4 PRN PRN Reason: pain 4-7 Al Hydrox/Mg Hydrox/Simethicone (Maalox Plus 30 Ml) 30 ml PO Q4 PRN PRN Reason: Dyspepsia Amlodipine Besylate (Norvasc) 2.5 mg PO DAILY [facility] Last Admin: 06/08/18 08:48 Dose: 2.5 mg Benztropine Mesylate (Cogentin) 0.5 mg PO HS [facility] Last Admin: 06/07/18 21:21 Dose: 0.5 mg Diphenhydramine HCl (Benadryl) 50 mg IM Q6 PRN PRN Reason: Extrapyramidal S/S Unable PO Diphenhydramine HCl (Benadryl) 50 mg PO Q6 PRN PRN Reason: Extrapyramidal Symptoms Diphenhydramine HCl (Benadryl) 50 mg PO HS PRN PRN Reason: Sleep Last Admin: 06/07/18 01:37 Dose: 50 mg Haloperidol (Haldol) 5 mg PO Q4 PRN PRN Reason: Agitation Haloperidol (Haldol) 5 mg PO BID [facility] Last Admin: 06/08/18 08:49 Dose: 5 mg Haloperidol (Haldol) 5 mg PO HS [facility] Last Admin: 06/07/18 21:21 Dose: 5 mg Haloperidol Lactate (Haldol) 5 mg IM Q4 PRN PRN Reason: Agitation, Unable to Take PO Lorazepam (Ativan) 2 mg IM Q4 PRN PRN Reason: Anxiety/Agitation,Unable PO Lorazepam (Ativan) 1 mg PO Q8 PRN PRN Reason: Anxiety/Agitation Last Admin: 06/07/18 21:26 Dose: 1 mg Magnesium Hydroxide (Milk Of Magnesia) 30 ml PO HS PRN PRN Reason: Constipation Multivitamins/Minerals (Therapeutic-M Tab) 1 tab PO DAILY [facility] Last Admin: 06/08/18 08:46 Dose: 1 tab Quetiapine Fumarate (Seroquel) 300 mg PO DAILY [facility] Last Admin: 06/08/18 08:49 Dose: 300 mg - Labs Labs: 06/02/18 07:58 05/31/18 16:44 PT 12.2 Seconds (9.8-13.1) 05/31/18 16:44 INR 1.1 05/31/18 16:44 APTT 27.8 Seconds (25.6-37.1) 05/31/18 16:44 Assessment and Plan (1) Suicide attempt Status: Acute (2) Schizoaffective disorder Status: Acute (3) H/O pulmonic valve repair Status: Acute (4) Murmur, cardiac Status: Chronic
--- NOTE | 2018-06-08 10:18 | CP.PCM.PN ---
Subjective - Date & Time of Evaluation Date of Evaluation: 06/07/18 Objective - Vital Signs/Intake and Output Vital Signs (last 24 hours): Temp Pulse Resp BP Pulse Ox 98.2 F 89 18 107/67 100 06/07/18 09:00 06/08/18 08:48 06/07/18 09:00 06/08/18 08:48 06/01/18 16:03 - Medications Medications: Current Medications Acetaminophen (Tylenol 325mg Tab) 650 mg PO Q4 PRN PRN Reason: pain 4-7 Al Hydrox/Mg Hydrox/Simethicone (Maalox Plus 30 Ml) 30 ml PO Q4 PRN PRN Reason: Dyspepsia Amlodipine Besylate (Norvasc) 2.5 mg PO DAILY [facility] Last Admin: 06/08/18 08:48 Dose: 2.5 mg Benztropine Mesylate (Cogentin) 0.5 mg PO HS [facility] Last Admin: 06/07/18 21:21 Dose: 0.5 mg Diphenhydramine HCl (Benadryl) 50 mg IM Q6 PRN PRN Reason: Extrapyramidal S/S Unable PO Diphenhydramine HCl (Benadryl) 50 mg PO Q6 PRN PRN Reason: Extrapyramidal Symptoms Diphenhydramine HCl (Benadryl) 50 mg PO HS PRN PRN Reason: Sleep Last Admin: 06/07/18 01:37 Dose: 50 mg Haloperidol (Haldol) 5 mg PO Q4 PRN PRN Reason: Agitation Haloperidol (Haldol) 5 mg PO BID [facility] Last Admin: 06/08/18 08:49 Dose: 5 mg Haloperidol (Haldol) 5 mg PO HS [facility] Last Admin: 06/07/18 21:21 Dose: 5 mg Haloperidol Lactate (Haldol) 5 mg IM Q4 PRN PRN Reason: Agitation, Unable to Take PO Lorazepam (Ativan) 2 mg IM Q4 PRN PRN Reason: Anxiety/Agitation,Unable PO Lorazepam (Ativan) 1 mg PO Q8 PRN PRN Reason: Anxiety/Agitation Last Admin: 06/07/18 21:26 Dose: 1 mg Magnesium Hydroxide (Milk Of Magnesia) 30 ml PO HS PRN PRN Reason: Constipation Multivitamins/Minerals (Therapeutic-M Tab) 1 tab PO DAILY [facility] Last Admin: 06/08/18 08:46 Dose: 1 tab Quetiapine Fumarate (Seroquel) 300 mg PO DAILY [facility] Last Admin: 06/08/18 08:49 Dose: 300 mg - Labs Labs: 06/02/18 07:58 05/31/18 16:44 PT 12.2 Seconds (9.8-13.1) 05/31/18 16:44 INR 1.1 05/31/18 16:44 APTT 27.8 Seconds (25.6-37.1) 05/31/18 16:44 Assessment and Plan (1) Suicide attempt Status: Acute (2) Schizoaffective disorder Status: Acute (3) H/O pulmonic valve repair Status: Acute (4) Murmur, cardiac Status: Chronic
--- NOTE | 2018-06-08 10:20 | CP.PCM.PN ---
Subjective - Date & Time of Evaluation Date of Evaluation: 06/08/18 Time of Evaluation: 10:05 Objective - Vital Signs/Intake and Output Vital Signs (last 24 hours): Temp Pulse Resp BP Pulse Ox 98.2 F 89 18 107/67 100 06/07/18 09:00 06/08/18 08:48 06/07/18 09:00 06/08/18 08:48 06/01/18 16:03 - Medications Medications: Current Medications Acetaminophen (Tylenol 325mg Tab) 650 mg PO Q4 PRN PRN Reason: pain 4-7 Al Hydrox/Mg Hydrox/Simethicone (Maalox Plus 30 Ml) 30 ml PO Q4 PRN PRN Reason: Dyspepsia Amlodipine Besylate (Norvasc) 2.5 mg PO DAILY [facility] Last Admin: 06/08/18 08:48 Dose: 2.5 mg Benztropine Mesylate (Cogentin) 0.5 mg PO HS [facility] Last Admin: 06/07/18 21:21 Dose: 0.5 mg Diphenhydramine HCl (Benadryl) 50 mg IM Q6 PRN PRN Reason: Extrapyramidal S/S Unable PO Diphenhydramine HCl (Benadryl) 50 mg PO Q6 PRN PRN Reason: Extrapyramidal Symptoms Diphenhydramine HCl (Benadryl) 50 mg PO HS PRN PRN Reason: Sleep Last Admin: 06/07/18 01:37 Dose: 50 mg Haloperidol (Haldol) 5 mg PO Q4 PRN PRN Reason: Agitation Haloperidol (Haldol) 5 mg PO BID [facility] Last Admin: 06/08/18 08:49 Dose: 5 mg Haloperidol (Haldol) 5 mg PO HS [facility] Last Admin: 06/07/18 21:21 Dose: 5 mg Haloperidol Lactate (Haldol) 5 mg IM Q4 PRN PRN Reason: Agitation, Unable to Take PO Lorazepam (Ativan) 2 mg IM Q4 PRN PRN Reason: Anxiety/Agitation,Unable PO Lorazepam (Ativan) 1 mg PO Q8 PRN PRN Reason: Anxiety/Agitation Last Admin: 06/07/18 21:26 Dose: 1 mg Magnesium Hydroxide (Milk Of Magnesia) 30 ml PO HS PRN PRN Reason: Constipation Multivitamins/Minerals (Therapeutic-M Tab) 1 tab PO DAILY [facility] Last Admin: 06/08/18 08:46 Dose: 1 tab Quetiapine Fumarate (Seroquel) 300 mg PO DAILY [facility] Last Admin: 06/08/18 08:49 Dose: 300 mg - Labs Labs: 06/02/18 07:58 05/31/18 16:44 PT 12.2 Seconds (9.8-13.1) 05/31/18 16:44 INR 1.1 05/31/18 16:44 APTT 27.8 Seconds (25.6-37.1) 05/31/18 16:44 Assessment and Plan (1) Suicide attempt Status: Acute (2) Schizoaffective disorder Status: Acute (3) H/O pulmonic valve repair Status: Acute (4) Murmur, cardiac Status: Chronic (5) Thrombocytopenia Status: Acute
--- NOTE | 2018-06-08 14:34 | PCM.PYCHPN ---
Psychiatric Progress Note - Psychiatric Progress Note Patient seen today, length of contact: pt evaluated discussed with team chart reviewed Patient Chief Complaint: I WAS FEELING DEPRESSED, BUT NOW I WANT TO TAKE MY MEDICINE Problems Identified/Issues Discussed: PT evaluated ,presenting with depressed mood and affect, reported by staff to be partially compliant with medications and selective , on discussion pt reported feeling down duw to frequent admissions , psychoeducation provided discussed with pt importance of medication compliance to avoid rehospitalizations, discussed possibility of starting haldol decanoate and augmenting with seroquel , pt denied any current side effects, noted to continue to be paranoid, internally preoccupied, denied command auditory hallucinations, encouraged pt to attend groups, pt denied current active thoughts of self harm Medical Problems: multiple hospitalizations, partial compliance DSM 5 Symptoms Update: SCHIZOAFFECTIVE DISORDER BIPOLAR Medication Change: Yes (INCREASE SEROQUEL) Medical Record Reviewed: Yes Mental Status Examination - Cognitive Function Orientation: Person, Place, Situation Attention: WNL Concentration: Poor Association: Loose Fund of Knowledge: Poor - Mood Mood: Anxious - Affect Affect: Constricted, Depressed - Speech Speech: Soft - Formal Thought Process Formal Thought Process: Hallucinations, Delusions, Paranoia - Suicidal Ideation Suicidal Ideation: No - Homicidal Ideation Homicidal Ideation: No Goal/Treatment Plan - Goal/Treatment Plan Need for Continued Stay: Discharge may exacerbated symptoms, Failed transitioning Progress Toward Problem(s) and Goals/Treatment Plan: decrease HAldol 5mg bid and 5 mg qhs/ will shift to haldol decanoate increase seroquel [id number] qhs monitor for psychopharmacological effects and side effect profile encourage medications compliance group and supportive therapy Estimated Date of D/C: 06/12/18
[2018-06-08] MEDS: Docusate-Senna 50 mg-8.6 mg Tab PO SCH (21:18)
[2018-06-09 06:08] LABS: BASO % 0.6 % (0.0-2.0); EOS # 0.1 K/uL (0.0-0.7); EOS % 1.9 % (0.0-4.0); HEMOGLOBIN 15.1 g/dL (12.0-18.0); LYMPH # 1.5 K/uL (1.0-4.3); LYMPH % 25.2 % (20.0-40.0); MEAN CORPUSCULAR HEMOGLOBIN 28.3 pg (27.0-31.0); MEAN CORPUSCULAR HGB CONC 32.9 g/dL (33.0-37.0); MEAN PLATELET VOLUME 9.2 fl (7.2-11.7); MONO # 0.5 K/uL (0.0-0.8); MONO % 9.2 % (0.0-10.0); NEUT # 3.7 K/uL (1.8-7.0); NEUT % 63.1 % (50.0-75.0); RBC 5.33 Mil/uL (4.40-5.90); WHITE BLOOD COUNT 5.8 K/uL (4.8-10.8)
[2018-06-09 06:26] LABS: ALB/GLOB RATIO 1.7 (1.0-2.1); ALBUMIN 4.3 g/dL (3.5-5.0); ALT/SGPT 58 U/L (21-72); AST/SGOT 27 U/L (17-59); BLOOD UREA NITROGEN 11 mg/dl (9-20); CALCIUM 9.1 mg/dL (8.4-10.2); GFR NON-AFRICAN AMERICAN > 60
[2018-06-09] MEDS: Multivitamin With Minerals Tab PO SCH (09:50)
--- NOTE | 2018-06-09 15:50 | PCM.PYCHPN ---
Psychiatric Progress Note - Psychiatric Progress Note Patient seen today, length of contact: pt evaluated discussed with team chart reviewed Patient Chief Complaint: I slept better but I STILL HEAR THE VOICES Problems Identified/Issues Discussed: PT evaluated ,reporting improved sleep with the increase in seroquel, no reported side effects, pt continues to have auditory hallucinations, non command type reported them to be 5/10 compared to 10/10 on admission , appears less paranoid,and less internally preoccupied, denied command auditory hallucinations, encouraged pt to attend groups, pt denied current active thoughts of self harm Medical Problems: multiple hospitalizations, partial compliance DSM 5 Symptoms Update: schizoaffective disorder bipolar Medication Change: No Medical Record Reviewed: Yes Mental Status Examination - Cognitive Function Orientation: Person, Place, Situation Attention: WNL Concentration: Poor Association: Loose Fund of Knowledge: Poor - Mood Mood: Anxious - Affect Affect: Constricted, Depressed - Speech Speech: Soft - Formal Thought Process Formal Thought Process: Hallucinations, Delusions, Paranoia - Suicidal Ideation Suicidal Ideation: No - Homicidal Ideation Homicidal Ideation: No Goal/Treatment Plan - Goal/Treatment Plan Need for Continued Stay: Discharge may exacerbated symptoms, Failed transitioning Progress Toward Problem(s) and Goals/Treatment Plan: HAldol 5mg bid and 5 mg qhs/ will shift to haldol decanoate seroquel 400mg qhs monitor for psychopharmacological effects and side effect profile encourage medications compliance group and supportive therapy Estimated Date of D/C: 06/12/18
[2018-06-09] MEDS: Docusate-Senna 50 mg-8.6 mg Tab PO SCH (21:01)
[2018-06-10] MEDS: Multivitamin With Minerals Tab PO SCH (09:13)
--- NOTE | 2018-06-10 14:57 | PCM.PYCHPN ---
Psychiatric Progress Note - Psychiatric Progress Note Patient seen today, length of contact: pt evaluated discussed with team chart reviewed Patient Chief Complaint: I had beeter sleep and the voices are less Problems Identified/Issues Discussed: PT evaluated with treatment team, affect less anxious, and brighter, pt reported mood better with improved sleep, reported partial clearing off of the auditory hallucinations, pt observed with improved sleep and appetite, more social and interactive with peers and staff, attending groups denied any current suicidal or homicidal ideation, showing more insight, verbalizing the importance of compliance with medications on discharge Medical Problems: multiple hospitalizations, partial compliance DSM 5 Symptoms Update: schizoaffective disorder Medication Change: No Medical Record Reviewed: Yes Mental Status Examination - Cognitive Function Orientation: Person, Place, Situation Attention: WNL Concentration: WNL Association: WNL Fund of Knowledge: Poor Decription of patient's judgement and insights: partial insight fair judgment - Mood Mood: Anxious - Affect Affect: Constricted, Depressed - Speech Speech: Soft - Formal Thought Process Formal Thought Process: Hallucinations, Delusions, Paranoia - Suicidal Ideation Suicidal Ideation: No - Homicidal Ideation Homicidal Ideation: No Goal/Treatment Plan - Goal/Treatment Plan Need for Continued Stay: Discharge may exacerbated symptoms, Failed transitioning Progress Toward Problem(s) and Goals/Treatment Plan: HAldol 5mg bid and 5 mg qhs/ will shift to haldol decanoate tomorrow 25mg im seroquel 400mg qhs monitor for psychopharmacological effects and side effect profile encourage medications compliance group and supportive therapy Estimated Date of D/C: 06/12/18
--- NOTE | 2018-06-10 16:49 | CP.PCM.PN ---
Subjective - Date & Time of Evaluation Date of Evaluation: 06/09/18 Time of Evaluation: 23:10 Objective - Vital Signs/Intake and Output Vital Signs (last 24 hours): Temp Pulse Resp BP Pulse Ox 98.1 F 77 17 105/70 100 06/10/18 09:06 06/10/18 09:06 06/10/18 09:06 06/10/18 09:06 06/01/18 16:03 - Medications Medications: Current Medications Acetaminophen (Tylenol 325mg Tab) 650 mg PO Q4 PRN PRN Reason: pain 4-7 Al Hydrox/Mg Hydrox/Simethicone (Maalox Plus 30 Ml) 30 ml PO Q4 PRN PRN Reason: Dyspepsia Amlodipine Besylate (Norvasc) 2.5 mg PO DAILY [facility] Last Admin: 06/10/18 09:13 Dose: 2.5 mg Benztropine Mesylate (Cogentin) 0.5 mg PO HS [facility] Last Admin: 06/09/18 21:01 Dose: 0.5 mg Diphenhydramine HCl (Benadryl) 50 mg IM Q6 PRN PRN Reason: Extrapyramidal S/S Unable PO Diphenhydramine HCl (Benadryl) 50 mg PO Q6 PRN PRN Reason: Extrapyramidal Symptoms Diphenhydramine HCl (Benadryl) 50 mg PO HS PRN PRN Reason: Sleep Last Admin: 06/10/18 00:50 Dose: 50 mg Haloperidol (Haldol) 5 mg PO Q4 PRN PRN Reason: Agitation Haloperidol (Haldol) 5 mg PO BID [facility] Last Admin: 06/10/18 09:13 Dose: 5 mg Haloperidol (Haldol) 5 mg PO HS [facility] Last Admin: 06/09/18 21:01 Dose: 5 mg Haloperidol Lactate (Haldol) 5 mg IM Q4 PRN PRN Reason: Agitation, Unable to Take PO Lorazepam (Ativan) 2 mg IM Q4 PRN PRN Reason: Anxiety/Agitation,Unable PO Lorazepam (Ativan) 1 mg PO Q8 PRN PRN Reason: Anxiety/Agitation Last Admin: 06/09/18 21:00 Dose: 1 mg Magnesium Hydroxide (Milk Of Magnesia) 30 ml PO HS PRN PRN Reason: Constipation Multivitamins/Minerals (Therapeutic-M Tab) 1 tab PO DAILY [facility] Last Admin: 06/10/18 09:13 Dose: 1 tab Quetiapine Fumarate (Seroquel) 400 mg PO HS [facility] Last Admin: 06/09/18 21:01 Dose: 400 mg Senna/Docusate Sodium (Senokot S 50 Mg-8.6 Mg) 2 tab PO HS [facility] Last Admin: 06/09/18 21:01 Dose: Not Given - Labs Labs: 06/09/18 05:50 06/09/18 05:50 PT 12.2 Seconds (9.8-13.1) 05/31/18 16:44 INR 1.1 05/31/18 16:44 APTT 27.8 Seconds (25.6-37.1) 05/31/18 16:44 Assessment and Plan (1) Suicide attempt Status: Acute (2) Schizoaffective disorder Status: Acute (3) H/O pulmonic valve repair Status: Acute (4) Murmur, cardiac Status: Chronic (5) Thrombocytopenia Status: Acute
[2018-06-10] MEDS: Docusate-Senna 50 mg-8.6 mg Tab PO SCH (21:17)
--- NOTE | 2018-06-10 22:42 | CP.PCM.PN ---
Subjective - Date & Time of Evaluation Date of Evaluation: 06/10/18 Time of Evaluation: 10:15 Objective - Vital Signs/Intake and Output Vital Signs (last 24 hours): Temp Pulse Resp BP Pulse Ox 98.1 F 77 17 105/70 100 06/10/18 09:06 06/10/18 09:06 06/10/18 09:06 06/10/18 09:06 06/01/18 16:03 - Medications Medications: Current Medications Acetaminophen (Tylenol 325mg Tab) 650 mg PO Q4 PRN PRN Reason: pain 4-7 Al Hydrox/Mg Hydrox/Simethicone (Maalox Plus 30 Ml) 30 ml PO Q4 PRN PRN Reason: Dyspepsia Amlodipine Besylate (Norvasc) 2.5 mg PO DAILY [facility] Last Admin: 06/10/18 09:13 Dose: 2.5 mg Benztropine Mesylate (Cogentin) 0.5 mg PO HS [facility] Last Admin: 06/10/18 21:17 Dose: 0.5 mg Diphenhydramine HCl (Benadryl) 50 mg IM Q6 PRN PRN Reason: Extrapyramidal S/S Unable PO Diphenhydramine HCl (Benadryl) 50 mg PO Q6 PRN PRN Reason: Extrapyramidal Symptoms Diphenhydramine HCl (Benadryl) 50 mg PO HS PRN PRN Reason: Sleep Last Admin: 06/10/18 00:50 Dose: 50 mg Haloperidol (Haldol) 5 mg PO Q4 PRN PRN Reason: Agitation Haloperidol (Haldol) 5 mg PO BID [facility] Last Admin: 06/10/18 17:50 Dose: 5 mg Haloperidol (Haldol) 5 mg PO HS [facility] Last Admin: 06/10/18 21:17 Dose: 5 mg Haloperidol Lactate (Haldol) 5 mg IM Q4 PRN PRN Reason: Agitation, Unable to Take PO Lorazepam (Ativan) 2 mg IM Q4 PRN PRN Reason: Anxiety/Agitation,Unable PO Lorazepam (Ativan) 1 mg PO Q8 PRN PRN Reason: Anxiety/Agitation Last Admin: 06/10/18 21:17 Dose: 1 mg Magnesium Hydroxide (Milk Of Magnesia) 30 ml PO HS PRN PRN Reason: Constipation Multivitamins/Minerals (Therapeutic-M Tab) 1 tab PO DAILY [facility] Last Admin: 06/10/18 09:13 Dose: 1 tab Quetiapine Fumarate (Seroquel) 400 mg PO HS [facility] Last Admin: 06/10/18 21:17 Dose: 400 mg Senna/Docusate Sodium (Senokot S 50 Mg-8.6 Mg) 2 tab PO HS [facility] Last Admin: 06/10/18 21:17 Dose: 2 tab - Labs Labs: 06/09/18 05:50 06/09/18 05:50 PT 12.2 Seconds (9.8-13.1) 05/31/18 16:44 INR 1.1 05/31/18 16:44 APTT 27.8 Seconds (25.6-37.1) 05/31/18 16:44 Assessment and Plan (1) Suicide attempt Status: Acute (2) Schizoaffective disorder Status: Acute (3) H/O pulmonic valve repair Status: Acute (4) Murmur, cardiac Status: Chronic (5) Thrombocytopenia Status: Acute
[2018-06-11] MEDS: Multivitamin With Minerals Tab PO SCH (08:48)
--- NOTE | 2018-06-11 15:33 | PCM.PYCHPN ---
Psychiatric Progress Note - Psychiatric Progress Note Patient seen today, length of contact: pt evaluated discussed with team chart reviewed Patient Chief Complaint: I am better still have hard time to sleep Problems Identified/Issues Discussed: PT evaluated , reported feeling less anxious, reported clearing breanna the voices, continues to have difficulty with sleep with early insomnia, pt prefers not to be started on haldol injection after explaining to him possible risks versus benefits, psycho education provided about importance of compliance with medications on discharge , pt denied any current suicidal or homicidal ideation, showing more insight, attending groups and interacting with other peers Medical Problems: multiple hospitalizations, partial compliance DSM 5 Symptoms Update: schizoaffective disorder bipolar type Medication Change: No Medical Record Reviewed: Yes Mental Status Examination - Cognitive Function Orientation: Person, Place, Situation Attention: WNL Concentration: WNL Association: WNL Fund of Knowledge: Poor Decription of patient's judgement and insights: partial insight fair judgment - Mood Mood: Anxious - Affect Affect: Constricted, Depressed - Speech Speech: Soft - Formal Thought Process Formal Thought Process: Hallucinations, Delusions, Paranoia - Suicidal Ideation Suicidal Ideation: No - Homicidal Ideation Homicidal Ideation: No Goal/Treatment Plan - Goal/Treatment Plan Need for Continued Stay: Discharge may exacerbated symptoms, Failed transitioning Progress Toward Problem(s) and Goals/Treatment Plan: Haldol 5mg bid and 5 mg qhs/ seroquel 400mg qhs monitor for psychopharmacological effects and side effect profile encourage medications compliance group and supportive therapy Estimated Date of D/C: 06/15/18
[2018-06-11] MEDS: Docusate-Senna 50 mg-8.6 mg Tab PO SCH (21:42)
--- NOTE | 2018-06-12 16:27 | PCM.PYCHPN ---
Psychiatric Progress Note - Psychiatric Progress Note Patient seen today, length of contact: pt evaluated discussed with team chart reviewed Patient Chief Complaint: I started to hear voices again, it makes me anxious Problems Identified/Issues Discussed: PT evaluated ,treatment plan discussed with mother upon pt consent , pt reported feeling increasingly anxious relates that to the re increase in the auditory hallucinations, reported non command but continues to put him down, discussed with pt gradual increase in haldol with follow up on EKG, CBT provided on dealing with the auditory hallucinations, pt denied active thoughts of self harm, showing more insight into illness Medical Problems: multiple hospitalizations, partial compliance DSM 5 Symptoms Update: schizoaffective disorder Medication Change: No Medical Record Reviewed: Yes Mental Status Examination - Cognitive Function Orientation: Person, Place, Situation Attention: WNL Concentration: WNL Association: WNL Fund of Knowledge: Poor Decription of patient's judgement and insights: partial insight fair judgment - Mood Mood: Anxious - Affect Affect: Constricted, Depressed - Speech Speech: Soft - Formal Thought Process Formal Thought Process: Hallucinations, Delusions, Paranoia - Suicidal Ideation Suicidal Ideation: No - Homicidal Ideation Homicidal Ideation: No Goal/Treatment Plan - Goal/Treatment Plan Need for Continued Stay: Discharge may exacerbated symptoms, Failed transitioning Progress Toward Problem(s) and Goals/Treatment Plan: increasee Haldol 5mg bid and 7 mg qhs/ seroquel 400mg qhs monitor for psychopharmacological effects and side effect profile encourage medications compliance group and supportive therapy Estimated Date of D/C: 06/15/18
[2018-06-12] MEDS: Multivitamin With Minerals Tab PO SCH (17:36)
--- NOTE | 2018-06-12 18:44 | CP.PCM.PN ---
Subjective - Date & Time of Evaluation Date of Evaluation: 06/11/18 Time of Evaluation: 18:05 - Subjective Subjective: Seen and examined at the bed side. No new complaint Objective - Vital Signs/Intake and Output Vital Signs (last 24 hours): Temp Pulse Resp BP Pulse Ox 97.2 F L 89 18 120/78 100 06/12/18 16:07 06/12/18 16:07 06/12/18 16:07 06/12/18 16:07 06/01/18 16:03 - Medications Medications: Current Medications Acetaminophen (Tylenol 325mg Tab) 650 mg PO Q4 PRN PRN Reason: pain 4-7 Al Hydrox/Mg Hydrox/Simethicone (Maalox Plus 30 Ml) 30 ml PO Q4 PRN PRN Reason: Dyspepsia Amlodipine Besylate (Norvasc) 2.5 mg PO DAILY [facility] Last Admin: 06/12/18 08:52 Dose: 2.5 mg Benztropine Mesylate (Cogentin) 0.5 mg PO HS [facility] Last Admin: 06/11/18 21:42 Dose: 0.5 mg Diphenhydramine HCl (Benadryl) 50 mg IM Q6 PRN PRN Reason: Extrapyramidal S/S Unable PO Diphenhydramine HCl (Benadryl) 50 mg PO Q6 PRN PRN Reason: Extrapyramidal Symptoms Diphenhydramine HCl (Benadryl) 50 mg PO HS PRN PRN Reason: Sleep Last Admin: 06/11/18 21:45 Dose: 50 mg Haloperidol (Haldol) 5 mg PO Q4 PRN PRN Reason: Agitation Haloperidol (Haldol) 5 mg PO BID [facility] Last Admin: 06/12/18 17:35 Dose: 5 mg Haloperidol (Haldol) 5 mg PO HS [facility] Last Admin: 06/11/18 21:42 Dose: 5 mg Haloperidol (Haldol) 2 mg PO HS [facility] Haloperidol Lactate (Haldol) 5 mg IM Q4 PRN PRN Reason: Agitation, Unable to Take PO Lorazepam (Ativan) 2 mg IM Q4 PRN PRN Reason: Anxiety/Agitation,Unable PO Lorazepam (Ativan) 1 mg PO Q8 PRN PRN Reason: Anxiety/Agitation Last Admin: 06/11/18 23:45 Dose: 1 mg Magnesium Hydroxide (Milk Of Magnesia) 30 ml PO HS PRN PRN Reason: Constipation Multivitamins/Minerals (Therapeutic-M Tab) 1 tab PO DAILY [facility] Last Admin: 06/12/18 17:36 Dose: 1 tab Quetiapine Fumarate (Seroquel) 400 mg PO HS [facility] Last Admin: 06/11/18 21:42 Dose: 400 mg Senna/Docusate Sodium (Senokot S 50 Mg-8.6 Mg) 2 tab PO HS [facility] Last Admin: 06/11/18 21:42 Dose: 2 tab - Labs Labs: 06/09/18 05:50 06/09/18 05:50 PT 12.2 Seconds (9.8-13.1) 05/31/18 16:44 INR 1.1 05/31/18 16:44 APTT 27.8 Seconds (25.6-37.1) 05/31/18 16:44 Assessment and Plan (1) Suicide attempt Status: Acute (2) Schizoaffective disorder Status: Acute (3) H/O pulmonic valve repair Status: Chronic (4) Murmur, cardiac Status: Chronic (5) Thrombocytopenia Status: Resolved - Assessment and Plan (Free Text) Plan: Continue current Care
[2018-06-12] MEDS: Docusate-Senna 50 mg-8.6 mg Tab PO SCH (21:15)
--- NOTE | 2018-06-12 23:37 | CARD ---
APPROVED REPORT Date of service: 06/12/2018 EKG Measurement Heart [id number] <Conclusion> Sinus rhythm with premature supraventricular complexes Possible Left atrial enlargement intraventricular block of RBBB type Inferior infarct, age undetermined T wave abnormalities Abnormal ECG
--- NOTE | 2018-06-13 08:59 | PCM.PYCHPN ---
Psychiatric Progress Note - Psychiatric Progress Note Patient seen today, length of contact: pt evaluated discussed with team chart reviewed Patient Chief Complaint: pt has temained very anxious and easily irritibld but decrease in the halucinations with increase in haldol and no side effects reported.pt remains with poor insight and need further stabilization. Medication Change: No Medical Record Reviewed: Yes Mental Status Examination - Cognitive Function Orientation: Person, Place, Situation Attention: WNL Concentration: WNL Association: WNL Fund of Knowledge: Poor - Mood Mood: Anxious - Affect Affect: Constricted, Depressed - Speech Speech: Soft - Formal Thought Process Formal Thought Process: Hallucinations, Delusions, Paranoia - Suicidal Ideation Suicidal Ideation: No - Homicidal Ideation Homicidal Ideation: No Goal/Treatment Plan - Goal/Treatment Plan Need for Continued Stay: Discharge may exacerbated symptoms, Failed transitioning Progress Toward Problem(s) and Goals/Treatment Plan: Will continue to titrate haldol and seroquel as needed to stabilize the psychosis and engage pt in therapy and groups . D/c plans as per dr ariza and referral to [facility] program. Estimated Date of D/C: 06/15/18
[2018-06-13] MEDS: Multivitamin With Minerals Tab PO SCH (09:03)
[2018-06-13] MEDS: Haloperidol Lactate 2 mg/ml Liquid PO SCH ×2 (21:30→21:35)
[2018-06-13] MEDS: Docusate-Senna 50 mg-8.6 mg Tab PO SCH (21:31)
[2018-06-14] MEDS: Multivitamin With Minerals Tab PO SCH (09:03)
--- NOTE | 2018-06-14 13:30 | PCM.PYCHPN ---
Psychiatric Progress Note - Psychiatric Progress Note Patient seen today, length of contact: pt evaluated discussed with team chart reviewed Patient Chief Complaint: pt has been impriving with meds and is in better mood and slirits but needs constant reasshrance due to anxiety.pt has temained very anxious and easily irritible but decrease in the halucinations with increase in haldol and no side effects reported.pt remains with poor insight and need further stabilization. Medication Change: No Medical Record Reviewed: Yes Mental Status Examination - Cognitive Function Orientation: Person, Place, Situation Attention: WNL Concentration: WNL Association: WNL Fund of Knowledge: Poor - Mood Mood: Anxious - Affect Affect: Constricted, Depressed - Speech Speech: Soft - Formal Thought Process Formal Thought Process: Hallucinations, Delusions, Paranoia - Suicidal Ideation Suicidal Ideation: No - Homicidal Ideation Homicidal Ideation: No Goal/Treatment Plan - Goal/Treatment Plan Need for Continued Stay: Discharge may exacerbated symptoms, Failed transitioning Progress Toward Problem(s) and Goals/Treatment Plan: Will continue to titrate haldol and seroquel as needed to stabilize the psychosis and engage pt in therapy and groups . D/c plans as per dr ariza and referral to [facility] program. Estimated Date of D/C: 06/15/18
--- NOTE | 2018-06-14 18:55 | CP.PCM.PN ---
Subjective - Date & Time of Evaluation Date of Evaluation: 06/14/18 Objective - Vital Signs/Intake and Output Vital Signs (last 24 hours): Temp Pulse Resp BP Pulse Ox 99.0 F 82 18 104/61 100 06/14/18 17:00 06/14/18 17:00 06/14/18 17:00 06/14/18 17:00 06/01/18 16:03 - Medications Medications: Current Medications Acetaminophen (Tylenol 325mg Tab) 650 mg PO Q4 PRN PRN Reason: pain 4-7 Al Hydrox/Mg Hydrox/Simethicone (Maalox Plus 30 Ml) 30 ml PO Q4 PRN PRN Reason: Dyspepsia Amlodipine Besylate (Norvasc) 2.5 mg PO DAILY [facility] Last Admin: 06/14/18 09:04 Dose: 2.5 mg Benztropine Mesylate (Cogentin) 0.5 mg PO HS [facility] Last Admin: 06/13/18 21:31 Dose: 0.5 mg Diphenhydramine HCl (Benadryl) 50 mg IM Q6 PRN PRN Reason: Extrapyramidal S/S Unable PO Diphenhydramine HCl (Benadryl) 50 mg PO Q6 PRN PRN Reason: Extrapyramidal Symptoms Diphenhydramine HCl (Benadryl) 50 mg PO HS PRN PRN Reason: Sleep Last Admin: 06/13/18 21:31 Dose: 50 mg Haloperidol (Haldol) 5 mg PO Q4 PRN PRN Reason: Agitation Haloperidol (Haldol) 5 mg PO BID [facility] Last Admin: 06/14/18 17:47 Dose: 5 mg Haloperidol (Haldol) 5 mg PO HS [facility] Last Admin: 06/13/18 21:31 Dose: 5 mg Haloperidol Lactate (Haldol) 5 mg IM Q4 PRN PRN Reason: Agitation, Unable to Take PO Haloperidol Lactate (Haldol) 2 mg PO HS [facility] Last Admin: 06/13/18 21:35 Dose: Not Given Magnesium Hydroxide (Milk Of Magnesia) 30 ml PO HS PRN PRN Reason: Constipation Multivitamins/Minerals (Therapeutic-M Tab) 1 tab PO DAILY [facility] Last Admin: 06/14/18 09:03 Dose: 1 tab Quetiapine Fumarate (Seroquel) 400 mg PO HS [facility] Last Admin: 06/13/18 21:31 Dose: 400 mg Senna/Docusate Sodium (Senokot S 50 Mg-8.6 Mg) 2 tab PO HS [facility] Last Admin: 06/13/18 21:31 Dose: Not Given - Labs Labs: 06/09/18 05:50 06/09/18 05:50 PT 12.2 Seconds (9.8-13.1) 05/31/18 16:44 INR 1.1 05/31/18 16:44 APTT 27.8 Seconds (25.6-37.1) 05/31/18 16:44 Assessment and Plan (1) Suicide attempt Status: Acute (2) Schizoaffective disorder Status: Acute (3) H/O pulmonic valve repair Status: Chronic (4) Murmur, cardiac Status: Chronic (5) Thrombocytopenia Status: Resolved
--- NOTE | 2018-06-14 18:55 | CP.PCM.PN ---
Subjective - Date & Time of Evaluation Date of Evaluation: 06/13/18 Objective - Vital Signs/Intake and Output Vital Signs (last 24 hours): Temp Pulse Resp BP Pulse Ox 99.0 F 82 18 104/61 100 06/14/18 17:00 06/14/18 17:00 06/14/18 17:00 06/14/18 17:00 06/01/18 16:03 - Medications Medications: Current Medications Acetaminophen (Tylenol 325mg Tab) 650 mg PO Q4 PRN PRN Reason: pain 4-7 Al Hydrox/Mg Hydrox/Simethicone (Maalox Plus 30 Ml) 30 ml PO Q4 PRN PRN Reason: Dyspepsia Amlodipine Besylate (Norvasc) 2.5 mg PO DAILY [facility] Last Admin: 06/14/18 09:04 Dose: 2.5 mg Benztropine Mesylate (Cogentin) 0.5 mg PO HS [facility] Last Admin: 06/13/18 21:31 Dose: 0.5 mg Diphenhydramine HCl (Benadryl) 50 mg IM Q6 PRN PRN Reason: Extrapyramidal S/S Unable PO Diphenhydramine HCl (Benadryl) 50 mg PO Q6 PRN PRN Reason: Extrapyramidal Symptoms Diphenhydramine HCl (Benadryl) 50 mg PO HS PRN PRN Reason: Sleep Last Admin: 06/13/18 21:31 Dose: 50 mg Haloperidol (Haldol) 5 mg PO Q4 PRN PRN Reason: Agitation Haloperidol (Haldol) 5 mg PO BID [facility] Last Admin: 06/14/18 17:47 Dose: 5 mg Haloperidol (Haldol) 5 mg PO HS [facility] Last Admin: 06/13/18 21:31 Dose: 5 mg Haloperidol Lactate (Haldol) 5 mg IM Q4 PRN PRN Reason: Agitation, Unable to Take PO Haloperidol Lactate (Haldol) 2 mg PO HS [facility] Last Admin: 06/13/18 21:35 Dose: Not Given Magnesium Hydroxide (Milk Of Magnesia) 30 ml PO HS PRN PRN Reason: Constipation Multivitamins/Minerals (Therapeutic-M Tab) 1 tab PO DAILY [facility] Last Admin: 06/14/18 09:03 Dose: 1 tab Quetiapine Fumarate (Seroquel) 400 mg PO HS [facility] Last Admin: 06/13/18 21:31 Dose: 400 mg Senna/Docusate Sodium (Senokot S 50 Mg-8.6 Mg) 2 tab PO HS [facility] Last Admin: 06/13/18 21:31 Dose: Not Given - Labs Labs: 06/09/18 05:50 06/09/18 05:50 PT 12.2 Seconds (9.8-13.1) 05/31/18 16:44 INR 1.1 05/31/18 16:44 APTT 27.8 Seconds (25.6-37.1) 05/31/18 16:44 Assessment and Plan (1) Suicide attempt Status: Acute (2) Schizoaffective disorder Status: Acute (3) H/O pulmonic valve repair Status: Chronic (4) Murmur, cardiac Status: Chronic (5) Thrombocytopenia Status: Resolved
[2018-06-14] MEDS: Docusate-Senna 50 mg-8.6 mg Tab PO SCH (21:11)
[2018-06-14] MEDS: Haloperidol Lactate 2 mg/ml Liquid PO SCH (21:13)
[2018-06-15 09:19] VITALS: PULSE 76; RESP 17; TEMP 98
[2018-06-15] MEDS: Multivitamin With Minerals Tab PO SCH (09:50)
[2018-06-15 09:52] VITALS: BP 90/60
--- NOTE | 2018-06-15 11:47 | PCM.PYCHDC ---
Mental Status Examination - Mental Status Examination Orientation: Person, Place, Situation Memory: Intact Mood: Neutral Affect: Broad Speech: Appropriate Attention: WNL Concentration: WNL Association: WNL Fund of Knowledge: WNL Formal Thought Process: Circumstantial Description of patient's judgement and insight: partial insight fair judgment Psychotic Thoughts and Behaviors: pt on discharge denied any current psychotic symptoms, non elicited Suicidal Ideation: No Current Homicidal Ideation?: No Discharge Summary - Discharge Note Reason for Hospitalization: pt is 37 ys old male with previous diagnosis of schizoaffective disorder and OCD brought to ER after recent suicidal attempt bt overdose on medications pt compliance with medications is questionable stated feeling increasingly distressed lately due to conflicts with mother, urges to overdose on drugs and feeling unhappy in partial hospital pt on the unit presenting with concrete and disorganized thought process, thought blocking, internally preoccuopied , labile affect poor insight, pt denied active thoughts of self harm on the unit denied command allucinations collateral information/ pts mother reports that the pt has been decompensating over the last 2 weeks since discharge from [facility] on 05/18/18. Pt has been engaging in bizarre behavior such as wearing a dawn in the home and has become more paranoid and verbally aggressive toward her. Consultations:: List each consultation separately and include: 1. Reason for request. 2. Findings. 3. Follow-up Summary of Hospital Course include:: 1. Description of specific treatment plan utilized for patients during their course of treatmen. 2. Summarize the time- course for resolution of acute symptoms and/or regressed behaviors. 3. Describe issues identified and worked on during hospitalization. 4. Describe medication utilized. 5. Describe medical problems identified and treated. 6. Reassessment of suicide risk Summary of Hospital Course: pt on admission presented with auditory hallucinations, non command putting him down, pt also reported poor sleep, increased anxiety, depression with passive suicidal ideation pt was placed on seroquel , increased to 400mg qhs pt was also placed on haldol increased to 5mg bid and 7mg qhs pt at current time needed augmentation of haldol with seroquel as he failed treatment with single antipsychotic pt participated in treatment . attended groups psychoeducation was provided in reference to importance of compliance, pt denied side effects of current medication EKG was done , pt continued to have prolonged QTC interval accordingly as per cardiology consult , placing him on Haldol decanoate wa not clinically sfa at this time pt was educated about importance of follow up with PMD, On discharge pt mental status was stable denied any current suicidal or homi cidal ideation, denied any current perceptual disturbances, pt was discharged to start partial hospital program at [facility] - Final Diagnosis (DSM 5) Condition upon Discharge: STABLE DSM 5: schizoaffective disorder bipolar type Disposition: HOME/ ROUTINE Follow-up Treatment Plan: increasee Haldol 5mg bid and 7 mg qhs/ seroquel 400mg qhs monitor for psychopharmacological effects and side effect profile encourage medications compliance group and supportive therapy Prescriptions/Medication Reconciliation: Benztropine [Cogentin] 0.5 mg PO HS 30 Days #30 tab Haloperidol [Haldol] 5 mg PO HS 30 Days #30 tab Haloperidol [Haldol] 5 mg PO BID 30 Days #60 tab Haloperidol Lactate [Haldol] 2 mg PO HS 30 Days #30 ml Multimineral/Multivitamin [Therapeutic-M Tab] 1 tab PO DAILY 30 Days #30 tab QUEtiapine [SEROquel] 400 mg PO HS 30 Days #60 tab - Antipsychotic Medications Pt discharged on 2 or more routine antipsychotic medications: Yes - Justification for 2 or more meds Failed 3 or more trials of Monotherapy: List medications: pt failed at least 3 trials of monotherapy. risperidone. perphenazine. haldol
== END 2018-06-15 11:44 | disposition home or self-care (01) | DRG 885 ==
LOC: H.ER 15:53 → H.ERHOLD 06-01 00:07 → H.PSYCH 06-01 02:08
PROVIDERS: ADMIT Psychiatry & Neurology Psychiatry; ATTEND Psychiatry & Neurology Psychiatry
PROC: GZHZZZZ Group Psychotherapy (ICD-10-PCS; principal; 2018-06-01)
PROC: GZ58ZZZ Individual Psychotherapy, Cognitive-Behavioral (ICD-10-PCS; 2018-06-01)
PROC: GZ56ZZZ Individual Psychotherapy, Supportive (ICD-10-PCS; 2018-06-01)
PROC: HZ56ZZZ Individual Psychotherapy for Substance Abuse Treatment, Psychoeducation (ICD-10-PCS; 2018-06-01)
DX: F25.0 Schizoaffective disorder, bipolar type (principal); R45.851 Suicidal ideations; R01.1 Cardiac murmur, unspecified; Z87.891 Personal history of nicotine dependence; F10.21 Alcohol dependence, in remission; D69.59 Other secondary thrombocytopenia; T42.1X5A Adverse effect of iminostilbenes, initial encounter; F11.21 Opioid dependence, in remission; G47.00 Insomnia, unspecified; F42.9 Obsessive-compulsive disorder, unspecified; Z88.2 Allergy status to sulfonamides

== ENCOUNTER 2018-07-22 07:10 | Emergency (ER) | payer MEDICARE, SELFPAY ==
[2018-07-22 07:20] VITALS: BMI 23.0
--- NOTE | 2018-07-22 08:22 | ED PDOC ---
HPI: Psych/Substance Abuse Time Seen by Provider: 07/22/18 07:38 Chief Complaint (Nursing): Psychiatric Evaluation Chief Complaint (Provider): Psychiatric Evaluation History Per: Patient History/Exam Limitations: no limitations Onset/Duration Of Symptoms: Days Associated Symptoms: Other (Nereyda ). denies: Suicidal Thoughts, Suicidal Plan Additional Complaint(s): 37 year old male with a past medical history of depression, bipolar disorder, and schizophrenia who is presenting to the ED for evaluation of feeling nereyda. Patient states that he has felt more agitated recently and states that he was unable to get any sleep last night. He denies taking any drugs or drinking alcohol prior to arrival and also denies any homicidal ideation, suicidal ideation, chest pain, or shortness of breath. PMD: Keo Richard Past Medical History Reviewed: Historical Data, Nursing Documentation, Vital Signs Vital Signs: Last Vital Signs Temp 97.7 F 07/22/18 07:19 Pulse 78 07/22/18 07:19 Resp 16 07/22/18 07:19 BP 106/66 07/22/18 07:19 Pulse Ox 100 07/22/18 07:19 - Medical History PMH: Anxiety, Bipolar Disorder, Cardia Arrhythmia, Depression, Schizophrenia Denies: Diabetes, Hepatitis, HIV, HTN, Chronic Kidney Disease, Seizures, Sexually Transmitted Disease - Surgical History Surgical History: CABG Other surgeries: Colostomy - Family History Family History: States: Unknown Family Hx - Social History Current smoker - smoking cessation education provided: No Ex-Smoker (has not smoked in the last 12 months): Yes Alcohol: Other (former sober since 2007) Drugs: Other (former user ) - Home Medications Home Medications: Ambulatory Orders Medication Instructions Recorded Omeprazole 40 mg PO QOTHERDAY 04/13/18 amLODIPine [Norvasc] 2.5 mg PO DAILY 05/31/18 Benztropine [Cogentin] 0.5 mg PO HS 30 Days #30 tab 06/15/18 Haloperidol Lactate [Haldol] 2 mg PO HS 30 Days #30 ml 06/15/18 Haloperidol [Haldol] 5 mg PO BID 30 Days #60 tab 06/15/18 Haloperidol [Haldol] 5 mg PO HS 30 Days #30 tab 06/15/18 Multimineral/Multivitamin 1 tab PO DAILY 30 Days #30 tab 06/15/18 [Therapeutic-M Tab] QUEtiapine [SEROquel] 400 mg PO HS 30 Days #60 tab 06/15/18 amLODIPine [Norvasc] 2.5 mg PO DAILY #0 tab 06/15/18 - Allergies Allergies/Adverse Reactions: Allergies Allergy/AdvReac Type Severity Reaction Status Date / Time Sulfa (Sulfonamide Allergy RASH Verified 06/01/18 02:41 Antibiotics) Review of Systems ROS Statement: Except As Marked, All Systems Reviewed And Found Negative Cardiovascular: Negative for: Chest Pain Respiratory: Negative for: Shortness of Breath Psych: Positive for: Other ((+) nereyda, (-) homicidal ideation ). Negative for: Suicidal ideation Physical Exam - Reviewed Nursing Documentation Reviewed: Yes Vital Signs Reviewed: Yes - Physical Exam Appears: Positive for: Non-toxic, No Acute Distress Head Exam: Positive for: ATRAUMATIC, NORMAL INSPECTION, NORMOCEPHALIC Skin: Positive for: Normal Color, Warm, DRY Eye Exam: Positive for: EOMI, Normal appearance, PERRL ENT: Positive for: Normal ENT Inspection Neck: Positive for: Normal, Painless ROM Cardiovascular/Chest: Positive for: Regular Rate, Rhythm. Negative for: Murmur Respiratory: Positive for: Normal Breath Sounds. Negative for: Respiratory Distress Gastrointestinal/Abdominal: Positive for: Normal Exam, Soft. Negative for: Tenderness Back: Positive for: Normal Inspection Extremity: Positive for: Normal ROM. Negative for: Deformity, Swelling Neurological/Psych: Positive for: Awake, Alert, Normal Tone, Oriented, Mood/Affect (normal ). Negative for: Motor/Sensory Deficits - Laboratory Results Result Diagrams: 07/22/18 08:53 07/22/18 08:53 - ECG O2 Sat by Pulse Oximetry: 100 (RA) Pulse Ox Interpretation: Normal Medical Decision Making Medical Decision Making: Time: 8:12 Plan: --Acetaminophen --Alcohol Serum --BMP --Urine Drug Screen --Salicylate --CBC --Urinalysis 10:32 patient was diagnosed with schizo-affective disorder under Dr. Robledo and will be discharged. Scribe Attestation: Documented by Ewa Hennessy, acting as a scribe for Gita Maldonado MD. Provider Scribe Attestation: All medical record entries made by the Scribe were at my direction and personally dictated by me. I have reviewed the chart and agree that the record accurately reflects my personal performance of the history, physical exam, medical decision making, and the department course for this patient. I have also personally directed, reviewed, and agree with the discharge instructions and disposition. Disposition - Clinical Impression Clinical Impression: Schizoaffective disorder - Disposition Disposition: Routine/Home Disposition Time: 10:35 Condition: STABLE Forms: [employer] (Filipino)
[2018-07-22 08:50] LABS: URINE BILIRUBIN NEGATIVE (NEGATIVE); URINE BLOOD NEGATIVE (NEGATIVE); URINE CLARITY CLEAR (Clear); URINE COLOR STRAW (YELLOW); URINE GLUCOSE (UA) NEG (NEGATIVE); URINE LEUKOCYTE ESTERASE NEG Leu/uL (Negative); URINE PROTEIN NEGATIVE (NEGATIVE); URINE UROBILINOGEN 0.2-1.0 mg/dL (0.2-1.0)
[2018-07-22 09:00] LABS: BASO % 0.8 % (0.0-2.0); EOS % 0.5 % (0.0-4.0); HEMOGLOBIN 15.1 g/dL (12.0-18.0); LYMPH # 1.2 K/uL (1.0-4.3); LYMPH % 24.8 % (20.0-40.0); MEAN CELL VOLUME 85.8 fl (80.0-94.0); MEAN CORPUSCULAR HEMOGLOBIN 28.1 pg (27.0-31.0); MEAN CORPUSCULAR HGB CONC 32.7 g/dL (33.0-37.0); MEAN PLATELET VOLUME 9.9 fl (7.2-11.7); MONO # 0.3 K/uL (0.0-0.8); MONO % 6.4 % (0.0-10.0); NEUT # 3.3 K/uL (1.8-7.0); NEUT % 67.5 % (50.0-75.0); NRBC % 0.1 % (0.0-0.0); RBC 5.38 Mil/uL (4.40-5.90); RED CELL DISTRIBUTION WIDTH 13.8 % (11.5-14.5); WHITE BLOOD COUNT 4.8 K/uL (4.8-10.8)
[2018-07-22 09:06] LABS: BARBITURATES, UR NEGATIVE (NEGATIVE); BENZODIAZEPINES, UR NEGATIVE (NEGATIVE); OPIATES, UR NEGATIVE (NEGATIVE); PHENCYCLIDINE, UR NEGATIVE (NEGATIVE)
[2018-07-22 09:17] LABS: ACETAMINOPHEN < 10.0 ug/ml (10.0-30.0); BLOOD UREA NITROGEN 13 mg/dl (9-20); CALCIUM 9.9 mg/dL (8.4-10.2); GFR NON-AFRICAN AMERICAN > 60; SALICYLATE < 1.0 mg/dl
--- NOTE | 2018-07-22 10:52 | CARD ---
APPROVED REPORT Date of service: 07/22/2018 EKG Measurement Heart [id number] <Conclusion> Normal sinus rhythm Right bundle branch block Inferior infarct, age undetermined Abnormal ECG
[2018-07-22 10:53] VITALS: BP 116/77; PULSE 79; RESP 18; TEMP 98.4; O2SAT 99
== END 2018-07-22 10:49 | disposition home or self-care (01) ==
LOC: H.ER 07:10
DX: F25.9 Schizoaffective disorder, unspecified (principal); F31.9 Bipolar disorder, unspecified; F41.9 Anxiety disorder, unspecified; I45.10 Unspecified right bundle-branch block; Z87.891 Personal history of nicotine dependence; Z95.1 Presence of aortocoronary bypass graft; Z88.2 Allergy status to sulfonamides
CPT/HCPCS: 80048; 81003; 85025; 93005; 99284; G0480